=== PATIENT | female | born 1935 | race Caucasian/White ===

== ENCOUNTER 2022-12-08 13:31 | Outpatient (CLI) | payer MEDICARE, SELFPAY ==
--- NOTE | ~2022-12-08 | US_ITS ---
EXAMINATION: US venous doppler LE RT DATE: 12/08/2022 14:12 INDICATION: UNILATERAL PRIMARY OSTEOARTHRITIS . TECHNIQUE: Grayscale images without and with compression and Doppler images of the right lower extrem ity veins were obtained. COMPARISON: None FINDINGS: The right common femoral vein, profunda (deep) femoral vein, femoral vein, popliteal vein, peroneal v ein, posterior tibial veins, gastrocnemius vein, and greater saphenous vein are patent. IMPRESSION: Patent right lower extremity veins. No evidence of deep venous thrombosis. Reviewed, dictated and finalized at location K.
== END 2022-12-08 13:32 | disposition home or self-care (01) ==
DX: M79.661 Pain in right lower leg (principal)
CPT/HCPCS: 93971

== ENCOUNTER 2024-08-14 09:41 | Emergency (ER) | payer MEDICARE, SELFPAY ==
--- NOTE | ~2024-08-14 | XR_ITS ---
HISTORY: Left wrist pain/fall 2 days ago, injury COMPARISON: None TECHNIQUE: 3 views of the left wrist were performed. FINDINGS: No acute fracture is identified. The carpal arcs are intact. Mild radiocarpal joint space narrowing with sclerosis of the distal radius is present. The remaining visualized joint spaces are otherwise preserved. Bone mineralization is age-appropriate. No significant soft tissue swelling is noted. No radiopaque foreign body is identified. IMPRESSION: No acute fracture or dislocation, as detailed above. Reviewed, dictated and finalized at location A.
--- NOTE | ~2024-08-14 | XR_ITS ---
HISTORY: Lt knee pain/fall 2 days ago,replacement 1.5 yrs ago COMPARISON: None TECHNIQUE: 3 views of the left knee were performed FINDINGS: No acute fracture or dislocation. Cortical irregularity along the medial surface of the distal femur, which may represent subacute frac ture with callus formation. Findings consistent with left tibiofemoral joint replacement, with inability to visualize tibial comp onent, possibly removed. Significant vascular calcifications are noted. No suprapatellar joint effusion is identified. The infrapatellar joint space is clear. IMPRESSION: Cortical irregularity along the medial surface of the distal femur which may represent a subacute periprosthetic fracture with callus formation. Reviewed, dictated and finalized at location A.
[2024-08-14 09:54] VITALS: BP 111/59; PULSE 67; RESP 16; TEMP 36.9; O2SAT 100
--- NOTE | 2024-08-14 10:02 | ED_ITS ---
HPI - Fall General Chief Complaint: Extremity Injury, Upper Stated Complaint: L WRIST/L KNEE INJURY Time Seen by Provider: 08/14/24 09:58 Source: patient and family Mode of arrival: ambulatory Limitations: no limitations History of Present Illness HPI Narrative: Star is an 89-year-old female patient presenting to the clinic today with complaints of left wrist and left knee pain. She reports she fell on Monday of this week and injured the left knee and fell yesterday and injured the left wrist. States that she feels as though she cannot always pack upper feet when walking and feels as though she is more shuffling and then falls. Denies hitting her head or any loss of consciousness. Denies any vision changes, dizziness, headache, or stroke-like symptoms prior to falling. Urine has been checked twice per family for UTI and was negative. She denies any urinary symptoms at this time. Family member and patient are here requesting x-rays of left wrist and left knee. Related Data Allergies Allergy/AdvReac Type Severity Reaction Status Date / Time Penicillins Allergy Unknown Unknown Verified 08/14/24 10:08 Review of Systems Review of Systems: Pertinent positives per HPI. Patient denies any fever, chills, rash, headache, visual changes, dizziness, cough, runny nose, sore throat, shortness of breath, chest pain, palpitations, nausea, vomiting, diarrhea, constipation, abdominal pain, or any urinary issues. PMFSH Comments At the time of my signature, I reviewed and agree with the nursing past medical, surgical, social, and family history. There is no relevant family history pertinent to the patient complaint. Exam Narrative: General: Well-developed, well nourished, in no apparent distress Head: Normocephalic, atraumatic. Cardio: Regular rate and rhythm, s1 and s2 normal, no murmur appreciated. Resp: Clear to auscultation bilaterally, no rhonchi, rales, wheezing or rubs. Musculoskeletal: No deformity, bruising with mild swelling noted to the anterior left knee, mild pain with full extension and flexion of the left knee, tender to palpation over the radial wrist with pain with extension and flexion of the wrist as well as ulnar and radial deviation, patient was able to remove her rings from her left hand as there was some mild hand swelling, muscle strength strong and equal, peripheral pulse strong, no cyanosis, walks with a single- point cane Course Course Emergency Course: Portions of this record may have been created with voice recognition software. Level of Care: Express Care Visit Vital Signs Vital signs: Vital Signs Temperature 36.9 C 08/14/24 09:54 Pulse Rate 67 08/14/24 09:54 Respiratory Rate 16 08/14/24 09:54 Blood Pressure 111/59 L 08/14/24 09:54 Pulse Oximetry 100 08/14/24 09:54 Temperature 36.9 C 08/14/24 09:54 Pulse Rate 67 08/14/24 09:54 Respiratory Rate 16 08/14/24 09:54 Blood Pressure 111/59 L 08/14/24 09:54 Pulse Oximetry 100 08/14/24 09:54 Oxygen Delivery Room Air 08/14/24 09:56 Vital signs reviewed MDM - Fall MDM Narrative Medical decision making narrative: At the time of visit patient is resting comfortably on the exam table. Patient appears to be nontoxic. Diagnostics: X-ray of the left wrist and left knee were negative for any acute fractures. Patient possibly has a subacute fracture with callus formation to the distal femur. Plan: I suspect patient has left wrist sprain and left knee contusion with a possibility of subacute fracture of the distal femur. Recommend follow-up with patient's orthopedic provider- Dr. Martin. Also give her information for Dr. Fermin. Geovani wraps were applied. Sensation circulation and motion within normal limits. Supportive measures were discussed with the patient and they voiced understanding discharge instructions and agrees to treatment plan. Return precautions reviewed Differential Diagnosis Differential diagnosis: Likely fracture of wrist and other (Wrist sprain, tibia fracture, femur fracture, patellar fracture, contusion, soft tissue injury) Imaging Data Radiologist's impression: ITS Impressions Wrist X-Ray 08/14/24 10:48 IMPRESSION: No acute fracture or dislocation, as detailed above. Knee X-Ray 08/14/24 10:49 IMPRESSION: Cortical irregularity along the medial surface of the distal femur which may represent a subacute periprosthetic fracture with callus formation. Discharge Plan Discharge Clinical Impression: Fall Qualifiers: Encounter type: initial encounter Qualified Code(s): W19.XXXA - Unspecified fall, initial encounter Contusion of knee, left Qualifiers: Encounter type: initial encounter Qualified Code(s): S80.02XA - Contusion of left knee, initial encounter Left wrist sprain Qualifiers: Encounter type: initial encounter Qualified Code(s): S63.502A - Unspecified sprain of left wrist, initial encounter Patient Disposition: Home Condition: Stable Instructions: Antibiotic Form, Fall Prevention for Older Adults (ED), Contusion in Adults (ED), Wrist Sprain (ED) Additional Instructions: X-rays of the left wrist and left knee are negative for any sign of acute fracture or malalignment. Rest, ice, elevate, and wear geovani wrap as directed Tylenol/motrin for pain as discussed. Follow up with your PCP if symptoms persist more than 1 week. Patient Language: Kinyarwanda Follow-up/Referrals: Ba,Monika [Other] Van Fermin MD [Physician] - (Left wrist sprain and left knee contusion-possible subacute fracture of distal femur with callus formation) Time of Disposition: 10:52 Quality NIHSS Nursing Documentation ED NIHSS nursing documentation: reviewed/agree
--- NOTE | 2024-08-14 11:14 | PC.NURSE ---
+PMS POST MALORIE WRAP APPLICATION TO LEFT WRIST AND LEFT KNEE
== END 2024-08-14 11:05 | disposition home or self-care (01) ==
PROVIDERS: Emergency Provider Nurse Practitioner Family
DX: S80.02XA Contusion of left knee, initial encounter (principal); S63.502A Unspecified sprain of left wrist, initial encounter; W19.XXXA Unspecified fall, initial encounter
CPT/HCPCS: 73110; 73562; 99204; G0463

== ENCOUNTER 2024-08-14 15:29 | Emergency (ER) | payer MEDICARE, SELFPAY ==
--- NOTE | ~2024-08-14 | XR_ITS ---
CHEST RADIOGRAPH CLINICAL HISTORY: weakness/ fall . COMPARISON: None available TECHNIQUE: Single portable view of the chest. FINDINGS The cardiomediastinal silhouette is unremarkable. The lungs are clear. IMPRESSION: No focal infiltrate or effusion. Reviewed, dictated and finalized at location A.
--- NOTE | ~2024-08-14 | CT_ITS ---
EXAMINATION: CT brain wo con DATE: 08/14/2024 16:45 INDICATION: Head injury TECHNIQUE: Computed tomography (CT) of the head was performed without intravenous contrast. Sagittal and coronal reconstructions were performed. The mA was adjusted according to patient size. Iterative reconstruction technique was employed. The dose-length product was 605.33 mGy-cm. COMPARISON: None FINDINGS: No fracture. Small old lacunar infarcts at the bilateral basal ganglia. No acute intracranial hemorrh age, acute infarction or abnormal extra axial fluid collection. There is moderate scattered white mat ter hypoattenuation consistent with chronic small vessel ischemic disease. Symmetric prominence of th e sulci consistent with mild to moderate age-appropriate diffuse cerebral volume loss. Ventricles are normal and symmetric. No mass/mass effect. Changes of bilateral intraocular lens replacement. The o rbits, paranasal sinuses and mastoid air cells are normal. There are multiple small lytic lesions thr oughout the calvarium for which differential would include multiple myeloma. IMPRESSION: 1. No fracture or acute intracranial process. 2. Small old lacunar infarcts at the bilateral basal ganglia. 3. Age-related changes including mild to moderate diffuse volume loss and moderate scattered white ma tter hypoattenuation consistent with chronic small vessel ischemic disease. 4. Several small lucent calvarial lesions for which differential would include multiple myeloma. Hira elate with SPEP/UPEP levels. Reviewed, dictated and finalized at location A. IMPRESSION: 1. No fracture or acute intracranial process. 2. Small old lacunar infarcts at the bilateral basal ganglia. 3. Age-related changes including mild to moderate diffuse volume loss and moder ate scattered white matter hypoattenuation consistent with chronic small vessel ischemic disease. 4. Several small lucent calvarial lesions for which differential would include multiple myeloma. Correlate with SPEP/UPEP levels.
--- NOTE | ~2024-08-14 | CT_ITS ---
CT facial & cervical spine wo Ordering provider: Olegario Olivas MD History: . facial trauma, bruising around right orbit . Comparison: None. Technique: Thin slice axial CT of the facial bones was performed without contrast. Coronal and sagit david reformatted images were also obtained. . Automated exposure control and iterative reconstruction technique were employed. The dose-length product was 167.18 mGy-cm. FINDINGS: PARANASAL SINUSES: Right maxillary sinus disease. Otherwise, a keen Well aerated. BONES: No facial fracture including no nasal bone fracture. ORBITS AND SUPERFICIAL SOFT TISSUES: The optic globes and orbits are normal. Fat stranding and swelli ng seen in the right cheek area suggestive of a hematoma. Otherwise, The superficial soft tissues are normal. Bilateral parapharyngeal and posterior triangular lymphadenopathy. Bilateral carotid calcifications. VISUALIZED MASTOIDS: Well aerated. LIMITED VISUALIZED BRAIN PARENCHYMA: Normal. IMPRESSION: No facial fracture. Hematoma in the right cheek area. CT facial & cervical spine wo Ordering provider: Olegario Olivas MD History: . facial trauma, bruising around right orbit . Comparison: None. Technique: CT of the cervical spine was performed without contrast. Sagittal and coronal reformatted images were also obtained and reviewed. Automated exposure control and iterative reconstruction jennifer hnique were employed. The dose-length product was 167.18 mGy-cm. FINDINGS: VERTEBRAE: No subluxation or acute fracture. The occipital condyles are intact. DISC SPACES: Narrowing of the disc C4-C5, C5-C6 and C6-C7. Multilevel facet joint disease. Multilevel uncovertebral joint osteoarthritic changes. Narrowing of the left intervertebral foramen at the leve l of C5-C6 PARASPINOUS SOFT TISSUES: Bilateral parapharyngeal and posterior triangle lymphadenopathy. Clinical c orrelation advised. Bilateral carotid calcifications. IMPRESSION: No acute osseous abnormality cervical spine. Multilevel degenerative disc disease. Reviewed, dictated and finalized at location A. IMPRESSION: No facial fracture. Hematoma in the right cheek area. CT facial & cervical spine wo Ordering provider: Olegario Olivas MD History: . facial trauma, bruising around right orbit . Comparison: None. Technique: CT of the cervical spine was performed without contrast. Sagittal a nd coronal reformatted images were also obtained and reviewed. Automated expos ure control and iterative reconstruction technique were employed. The dose-ne th product was 167.18 mGy-cm. FINDINGS: VERTEBRAE: No subluxation or acute fracture. The occipital condyles are intact. DISC SPACES: Narrowing of the disc C4-C5, C5-C6 and C6-C7. Multilevel facet lianna nt disease. Multilevel uncovertebral joint osteoarthritic changes. Narrowing of the left intervertebral foramen at the level of C5-C6 PARASPINOUS SOFT TISSUES: Bilateral parapharyngeal and posterior triangle lymph adenopathy. Clinical correlation advised. Bilateral carotid calcifications.
[2024-08-14 15:48] VITALS: BP 127/63; PULSE 65; RESP 16; TEMP 36.7; O2SAT 97
--- NOTE | 2024-08-14 16:20 | PC.NURSE ---
Pt. daughter approached nurses station, asking ADRIANE Barkley about when the pt. would receive her CT scan. This RN entered the conversation as the primary nurse. ER process explained to daughter, that an order for the CT scan has to be put in by a provider and a provider has not signed up for the patient yet. Daughter very upset by this, and began yelling at CRNs, Dr. Gan and this RN, upset about the wait time. Pt. is hemodynamically stable. Daughter reluctantly cooperative in walking back to pt. room. Dr. Olivas to bedside.
[2024-08-14 16:26] VITALS: BP 121/60; PULSE 63; RESP 14; O2SAT 96
--- NOTE | 2024-08-14 16:30 | ECG_ITS ---
Test Date: 2024-08-14 17:21:47 Measurements Intervals [place] Rate: 60 P: 56 [place]: 212 QRS: -43 QRSD: 159 T: 67 QT: 475 QTc: 478 Interpretive Statements SINUS RHYTHM WITH FIRST DEGREE AV BLOCK LEFT AXIS DEVIATION LEFT BUNDLE BRANCH BLOCK BASELINE ARTIFACT- I, II, AVR ABNORMAL ECG No previous ECG available for comparison Electronically Signed On 08-14-2024 19:51:38 CDT by Dioni Silveira D.O.
--- OUTSIDE RECORDS SUMMARY | 2024-08-14 16:38 | XMS_ITS | Clinical Summary ---
Author Organization [facility] Address [address] [facility] [place] [address] Phone Care Team Providers Care Creative Arts Therapist Name Role Phone Monika Cosme MD Primary Care Provider [phone] Allergies Active Allergy Reactions Criticality Noted Date Comments Clindamycin Rash Low 05/26/2014 Erythromycin Rash Low 05/26/2014 Penicillins Rash Low 05/26/2014 Medications amLODIPine (NORVASC) 10 mg tablet Take 10 mg by mouth daily. Active calcium carbonate (CALTRATE) 600 mg (1,500 mg) Tablet Take by mouth 3 times daily with meals. Active meloxicam (MOBIC) 15 mg tablet Take 15 mg by mouth daily. 02/18/2020 Active lisinopril-hydr oCHLOROthiazide (ZESTORETIC) 20-12.5 mg tablet TK 1 AND 1/2 TS PO D 02/21/2020 Active latanoprost (XALATAN) 0.005 % solution INSTILL 1 DROP INTO AFFECTED EYE QPM 02/18/2020 Active ergocalciferol, vitamin D2, (VITAMIN D ORAL) Take by mouth daily. Active HYDROcodone-ellis taminophen (NORCO) 5-325 mg tabletIndicatio ns:UPJ obstruction, acquired Take 1 Tablet by mouth every 8 hours as needed for severe Pain. Max Daily Amount: 3 Tablets 20 Tablet 2020 1:56 PM CDT 2020 Active vibegron (Gemtesa) 75 mg Tablet Take 75 mg by mouth daily. 30 Tablet 5 01/31/2022 Active mirabegron (Myrbetriq) 50 mg Extended Release 24 hour tablet Take 1 Tablet (50 mg) by mouth daily. 30 Tablet 5 02/02/2022 Active Active Problems Problem Noted Date Diagnosed Date Frequency of micturition 03/01/2016 Urgency incontinence 03/01/2016 Overactive bladder 05/26/2014 Encounters Date Type Department Care Team Description 05/28/2024 External Device Data ST[facility] ABSTRACTION Provider, Abstract 05/22/2024 External Device Data [facility] ABSTRACTION Provider, Abstract 05/22/2024 External Device Data [facility] ABSTRACTION Provider, Abstract from Last 3 Months Immunizations Immunization Administration Dates Next Due Influenza Seasonal Unspecified Formulation IM Family History Medical History Relation Name Comments Hypertension Brother Heart Disease Father Hypertension Father Heart Disease Mother Hypertension Mother Relation Name Status Comments Brother Father Mother Social History Tobacco Use Types Packs/Day Years Used Date Smoking Tobacco: Former Cigarettes 0.5 55 0 05/26/1957 - 05/26/2012 Smokeless Tobacco: Never Tobacco Cessation:Counseling Given: Yes Alcohol Use Standard Drinks/Week Comments Yes 0 (1 standard drink = 0.6 oz pur e alcohol) Comments No Sex and Gender Information Value Date Recorded Sex Assigned at Not on file 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 Gender Identity Not on file Sexual Orientation Not on file Last Filed Vital Signs Vital Sign Reading Time Taken Comments Blood Pressure 142/77 2020 2:31 PM CDT Pulse 81 2020 2:31 PM CDT Temperature 36.2 C (97.2 F) 2020 2:31 PM CDT Respiratory Rate 18 01/25/2022 10:52 AM CDT Oxygen Saturation 96% 2020 2:31 PM CDT Inhaled Oxygen Concentration - - Weight 68 kg (150 lb) 01/25/2022 10:52 AM CDT Height 157.5 cm (5' 2 ) 01/25/2022 10:52 AM CDT Body Mass Index 27.44 01/25/2022 10:52 AM CDT Plan of Treatment Health Maintenance Due Date Last Done Comments DTAP/TDAP/TD VACCINES (1 - Tdap) 07[birth year]23/1954 PNEUMOCOCCAL VACCINE 50+ YEA RS (1 of 1 - PCV) 1986 ZOSTER VACCINE (1 of 2) 1986 RSV VACCINE (60+ or ) (1 - 1-dose 75+ series) 07/23/2011 INFLUENZA VACCINE (#1) 2023 01/30/2020 OSTEOPOROSIS SCREENING Completed , 12/24/2014, 11/23/2012 Medical Devices Implanted Type Area Telephone Clerk Device Identifier Shelf Expiration Date Model / Serial / Lot Stent Polaris Ultra [id number] - [id number] Implanted:Qty: 1 on 2020 by Libia Coronel MD at [facility] Stent Left: Ureter [employer] [id number] 04/14/2023 [id number] / / [id number] In Process Of Getting Dental Implants Mouth Insurance RX OPT[employer] RX Member Subscriber Plan / Payer (Ef fective 2020-Present) Name:Star Torres Relation to Subscriber:Self Name:Star Torres Subscriber ID:Not on file Payer ID:Not on file Group ID:[id number] Type:RX Medicare Part D Address: [place] [place] Advance Directives For more information, please contact: [phone] * Full Code (Latest Code Status on File) Date Activated Date Inactivated Comments 2020 8:52 AM 2020 4:44 PM Care Teams Creative Arts Therapist Relationship Specialty Start Date End Date Monika Cosme MD [address] [place] [address] PCP - General Internal Medicine 06/10/20
--- OUTSIDE RECORDS SUMMARY | 2024-08-14 16:38 | XMS_ITS | Encounter Summary ---
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
--- OUTSIDE RECORDS SUMMARY | 2024-08-14 16:38 | XMS_ITS | Clinical Summary ---
Author Organization [facility] Address [address] [place] [address] Care Team Providers Care Revenue Liaison Name Role Phone Monika Cosme MD Primary Care Provider [phone] Source Comments [facility],non-owned Affiliates and Associated Physician Practices is amultiple site organization consisting of ambulatory clinics and hospital sitesin [place], [place], [place] and [place]. This disclosure is being madepursuant to the Care Everywhere program and may not contain all information available regarding this patient. Last updated 18.[facility] Allergies Active Allergy Reactions Criticality Noted Date Comments Clindamycin Diarrhea 12/28/2020 Erythromycin Diarrhea 12/28/2020 Lisinopril Rash Medium 12/28/2020 Penicillin G Other High 10/28/2022 Medications * Be aware that medications may not be up to date on this document. Alwaysverify current medications with the patient. meloxicam (MOBIC) 15 MG tablet Take 1 (one) tablet by mouth once daily Active latanoprost (XALATAN) 0.005 % ophthalmic solution 1 (one) drop at bedtime 0.005-2.5ml Active lisinopril-hydr oCHLOROthiazide (Prinzide; Zestoretic) 20-12.5 MG tablet Take 1.5 (one and one-half) tablets by mouth once daily 2 Active dorzolamide-irineo olol (Cosopt) 22.3-6.8 MG/ML ophthalmic solution Instill 1 (one) drop into both eyes 2 times daily 2 Active Myrbetriq 50 MG tablet Take 1 (one) tablet by mouth once daily 2 Active neomycin-polymy staci-dexameth (Maxitrol) ophthalmic suspension Instill 1 (one) drop into both eyes once daily 3 Active Rocklatan 0.02-0.005 % ophthalmic solution Instill 1 (one) drop into both eyes at bedtime 3 Active azelastine (Optivar) 0.05 % ophthalmic solution Instill 1 (one) drop into both eyes every morning 3 Active hyoscyamine (Levsin) 0.125 MG IR tablet Take 2 (two) tablets by mouth every 4 hours as needed 3 Active multivitamins (One A Day) capsule Take 1 (one) capsule by mouth once daily Active hydrocortisone (Hytone) 2.5 % ointment APPLY TO EYELIDS TWICE DAILY FOR 1 WEEK 3 Active esomeprazole (NexIUM) 40 MG capsule esomeprazole magnesium 40 mg capsule,delayed release(DR/EC) Active calcium carbonate (Caltrate) 600 MG tablet Active amLODIPine (Norvasc) 10 MG tablet 1 tablet Oral Once a day for 90 days 3 Active acetaminophen (Tylenol) 500 MG tablet Take 2 (two) tablets by mouth every 6 hours as needed Active salicylic acid (Neutrogena T/Daren) 3 % shampoo use as directed topically 2-3 times a week as needed External 3 Active ergocalciferol (Drisdol) 200 MCG (8000 UNITS)/ML drops Take by mouth once daily Active Multiple Vitamins-Minera ls (MULTIVITAMIN ADULT EXTRA C PO) 0 Active Polyethylene Glycol 3350 (MIRALAX PO) 90 packet 4 Active metoprolol succinate XL 24hr (Toprol XL) 25 MG tablet 1 (one) tablet 4 Active Probiotic Product (Align) 4 MG 0 Capsule Active losartan-hydroC HLOROthiazide (Hyzaar) 100-25 MG tablet TAKE 1 TABLET BY MOUTH ONCE A DAY (STOP LISINOPRIL HCTZ) Active metoprolol succinate XL 24hr (Toprol XL) 25 MG tablet 1 (one) tablet once daily 4 Active nystatin/triamc inolone (Mycolog) 424778-7.1 UNIT/GM-% ointmentIndicat ions:Erosive lichen planus of vulva APPLY TOPICALLY EXTERNAL VAGINAL OPENING EVERY NIGHT AT BEDTIME 60 g 2 Active Active Problems Problem Noted Date Diagnosed Date 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, bilateral, indeterm inate stage 03/18/2024 Left bundle branch block 10/28/2022 023 Osteoarthritis of knee 10/28/2022 Diverticulosis 10/26/2022 02/20/2023 DVT (deep venous thrombosis) 10/26/2022 Hx of breast cancer 10/26/2022 02/20/2023 Hypertension 10/26/2022 02/20/2023 Resolved Problems Problem Noted Date Diagnosed Date Resolved Date Lichen planus 04/19/2021 03/18/2024 Family History Medical History Relation Name Comments Cancer - Prostate Brother 1 Cancer - Prostate Brother 2 Cancer - Prostate Father CAD (Coronary Artery Disease) Mother Relation Name Status Comments Brother 1 Brother 2 Father Mother Social History Tobacco Use Types Packs/Day Years Used Date Smoking Tobacco: Former Cigarettes Q uit: 2013 Smokeless Tobacco: Never Tobacco Cessation:Counseling Given: Not Answered Alcohol Use Standard Drinks/Week Comments Yes 4 (1 standard drink = 0.6 oz pur e alcohol) 4 drinks weekly Comments No Sex and Gender Information Value Date Recorded Sex Assigned at Not on file Legal Sex Female 6:15 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 ASSISTANT Gender Identity Not on file Sexual Orientation Not on file Last Filed Vital Signs Vital Sign Reading Time Taken Comments Blood Pressure 130/74 03/18/2024 10:13 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 ASSISTANT Pulse - - Temperature - - Respiratory Rate - - Oxygen Saturation - - Inhaled Oxygen Concentration - - Weight 65.1 kg (143 lb 9.6 oz) 03/18/2024 10:13 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 ASSISTANT Height 160 cm (5' 3 ) 03/18/2024 10:13 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 ASSISTANT Body Mass Index 25.44 03/18/2024 10:13 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 ASSISTANT Plan of Treatment Upcoming Encounters Date Type Department Care Team (Late st Contact Info) Description 03/18/2025 10:50 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 ASSISTANT Office Visit [facility] - NUT ROASTER [address] [place] [address] Bernarda Hyde MD [address] [email or web address] [address] [place] [address] Health Maintenance Due Date Last Done Comments DTAP/TDAP/TD VACCINES (1 - Tdap) 07/23/1954 PNEUMOCOCCAL VACCINE 50+ (1 of 1 - PCV) 1986 ZOSTER VACCINE (1 of 2) 1986 Respiratory Syncytial Virus (RSV) Vaccine Pt: or over 60 yrs (1 - 1-dose 75+ series) 07/23/2011 COVID-19 VACCINE (1 - 2023-2 5 season) 2023 DEPRESSION SCREENING 05/01/2024 MEDICARE AWV CALENDAR YEAR 2024 INFLUENZA VACCINE (Season Ended) 2024 01/30/2020 BONE DENSITY TESTING Completed 12/27/2016, 12/24/2014, 11/23/2012 HEPATITIS B VACCINE Aged Out No longe r eligible based on patient's age to complete this topic HIB VACCINE Aged Out No longer eligi ble based on patient's age to complete this topic HPV VACCINE Aged Out No longer eligi ble based on patient's age to complete this topic MENINGOCOCCAL (Group B) VACCINE SHARED DECISION-MAKING Aged Out No longer eligible based on patient's age to complete this topic MENINGOCOCCAL GROUPS A/C/Y/W VACCINE Aged Out No longer eligible b ased on patient's age to complete this topic Insurance AETNA MEDICARE ADV [facility] AETNA MEDICARE ADV Care Teams Revenue Liaison Relationship Specialty Start Date End Date Monika Cosme MD [address] [facility] [address] [place] [id number] PCP - General 12/28/20
--- OUTSIDE RECORDS SUMMARY | 2024-08-14 16:38 | XMS_ITS | Clinical Summary ---
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 Gender Identity Not on file Sexual Orientation Not on file Plan of Treatment Health Maintenance Due Date Last Done Comments DTaP, Tdap and Td Vaccines ( 1 - Tdap) 07/23/1954 Zoster Vaccines (1 of 2) 1986 Pneumococcal Vaccine: 50+ Ye ars (1 of 1 - PCV) 2001 RSV Immunization or 60+ Years (1 - 1-dose 75+ series) 07/23/2011 COVID-19 Vaccine ( - 2023-2 5 season) 2023 Meningococcal B Vaccine Aged Out No l onger eligible based on patient's age to complete this topic Meningococcal Vaccine Aged Out No albertina jj eligible based on patient's age to complete this topic RSV Immunizations Under 20 Months Aged Out No longer eligible based on patient's age to complete this topic
--- OUTSIDE RECORDS SUMMARY | 2024-08-14 16:38 | XMS_ITS | Encounter Summary ---
Author Organization [facility] Address [address] [place] [address] Care Team Providers Care Lobster Man Name Role Phone Monika Cosme MD Primary Care Provider [phone] Reason for Visit * Reason Onset Date Comments Fall 02/20/2023 PROBLEM 02/20/2023 Encounter Details Date Type Department Care Team (Late st Contact Info) Description 02/20/2023 Telephone [facility] - ENVIRONMENTAL SCIENCE PROGRAM DIRECTOR [address] [place] [address] Sher Otero MD [address] [facility] [place] [address] Fall; PROBLEM Social History Tobacco Use Types Packs/Day Years Used Date Smoking Tobacco: Former Cigarettes Q uit: 2013 Smokeless Tobacco: Never Alcohol Use Standard Drinks/Week Comments Yes 4 (1 standard drink = 0.6 oz pur e alcohol) 4 drinks weekly Comments No Sex and Gender Information Value Date Recorded Sex Assigned at Not on file Legal Sex Female 6:15 AM TALENT CONSULTANT Gender Identity Not on file Sexual Orientation Not on file documented as of this encounter Miscellaneous Notes * Telephone Encounter - Елена Carrasco - 02/20/2023 3:08 PM CDT Pt called and said she experinced a fall. Says she feels slight movement. Wants to know how to proceed. Pt is 22 wks. documented in this encounter Plan of Treatment Upcoming Encounters Date Type Department Care Team (Late st Contact Info) Description 03/18/2025 10:50 AM TALENT CONSULTANT Office Visit [facility] - ENVIRONMENTAL SCIENCE PROGRAM DIRECTOR [address] [facility] [address] [place] [address] Bernarda Hyde MD [address] [facility] [address] [place] [address] documented as of this encounter Visit Diagnoses Not on filedocumented in this encounter Care Teams Lobster Man Relationship Specialty Start Date End Date Monika Cosme MD [address] [facility] [address] [place] [address] PCP - General 12/28/20 documented as of this encounter
--- OUTSIDE RECORDS SUMMARY | 2024-08-14 16:38 | XMS_ITS | Encounter Summary ---
Author Organization [facility] Health Address [address] [facility] [place] [address] Care Team Providers Care Lap Winding Machine Operator Name Role Phone Monika Cosme MD Primary Care Provider [phone] Encounter Details Date Type Department Care Team (Late Contact Info) Description 09/27/2023 Lab Requisition [facility] - DermPath Lab [address] [place] [address] Lisa Howell MD [address] [place] [address] Social History Tobacco Use Types Packs/Day Years Used Date Smoking Tobacco: Former Cigarettes Q uit: 2013 Smokeless Tobacco: Never Alcohol Use Standard Drinks/Week Comments Yes 4 (1 standard drink = 0.6 oz pur e alcohol) 4 drinks weekly Comments No Sex and Gender Information Value Date Recorded Sex Assigned at Not on file Legal Sex Female 6:15 AM 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 Gender Identity Not on file Sexual Orientation Not on file documented as of this encounter Plan of Treatment Upcoming Encounters Date Type Department Care Team (Late Contact Info) Description 03/18/2025 10:50 AM BILINGUAL 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 CASEWORKER Office Visit [facility] - ASTROBIOLOGIST [address] [place] [address] Bernarda Hyde MD [address] [place] [address] documented as of this encounter Procedures Procedure Name Priority Date/Time Associated Diagnosis Comments DERMATOPATHOLOGY Routine 09/27/2023 3:33 AM CDT documented in this encounter Results * DERMATOPATHOLOGY (09/27/2023 3:33 AM CDT) Case Report Dermatopathology Report Case: [id number] Authorizing Provider: Lisa Howell MD Collected: 09/27/2023 03:33 AM Ordering Location: [facility] - Received: 09/28/2023 10:55 AM DermPath Lab Pathologist: Amber Antonio MD Specimen: Skin, anterior neck 1:51 PM CDT DERMATOPATHOLOGY LABORATORY Final Diagnosis Specimen A. SKIN, anterior neck: EPIDERMOID CYST (L72.0) 1:51 PM CDT DERMATOPATHOLOGY LABORATORY Clinical History R/O cyst 1:51 PM CDT DERMATOPATHOLOGY LABORATORY Gross Description Specimen A: Received is one formalin filled container labeled with the patient's name and designated anterior neck. The specimen consists of a 10x7x2 mm piece of skin. The specimen is serially sectioned and a outside sales representative insurance section is submitted in cassette 1. Jar 1. 1:51 PM CDT DERMATOPATHOLOGY LABORATORY Microscopic Description Specimen A. SKIN, anterior neck: Within the dermis, there is a space lined by epithelium that resembles normal epidermis and the infundibular portion of the hair follicle. 1:51 PM CDT DERMATOPATHOLOGY LABORATORY Disclaimer An external and internal positive and negative controls are appropriate for the histochemical, immunohistochemical and immunofluorescence stain(s) in this case (if any), except where stated explicitly. The performance characteristics of the stain(s) cited in this report were developed and its performance characteristic determined by the Dermatopathology Laboratory at [facility], directed by Dr. Rae Antonio. These tests need not be, and therefore are not, approved by the [place] Food and Drug Administration. The tests are used for clinical purposes. Billing Codes Specimen Charges Stain Charges 95743 1 1:51 PM CDT DERMATOPATHOLOGY LABORATORY Embedded Images 05/31/202 4 1:51 PM CDT DERMATOPATHOLOGY LABORATORY Pathology/Cytolo gy TISSUE SPECIMEN FROM SKIN / Unknown 09/27/2023 3:33 AM CDT 09/28/2023 10:55 AM CDT us Lisa Howell MD LAB - PATHOLOGY/CYTOLOGY [facility] EDUARDO Final Result DERMATOPATHOLOGY LABORATORY [facility] - Department of Dermatology [facility] [address] [place] [address], [address] [phone] documented in this encounter Visit Diagnoses Not on filedocumented in this encounter Care Teams Lap Winding Machine Operator Relationship Specialty Start Date End Date Monika Cosme MD [address] [facility] [address] [place] [address] PCP - General 12/28/20 documented as of this encounter
--- OUTSIDE RECORDS SUMMARY | 2024-08-14 16:38 | XMS_ITS | Patient Health Record ---
Author Organization [facility] OF [facility] Address [address] [facility] [address] [place] [address] Care Team Providers Care Interpreter Name Role Phone Monika Cosme Primary Care Provider Marquita Rmaos Unavailable [phone] Allergies Allergen (clinical drug ingredient) Drug/Non Drug Allergy documented on EMR Reaction Allergy Type Onset Date Status clindamycin Clindamycin Unknown Drug Allergy Act ai erythromycin Erythromycin Unknown Drug Allergy A ctive Penicillin Unknown Drug Allergy Active Reason For Referral No Information Medications Medication SIG (Take, Route, Frequency, Duration) Notes Start Date End Date Status Clopidogrel Bisulfate 75 MG Oral for 90 Days Active Metoprolol Succinate ER 25 MG Oral for 90 Days Active Atorvastatin Calcium 40 MG TAKE 1 TABLET BY MOUTH EVERY NIGHT Oral for 90 Days Active Aspirin Low Dose 81 MG TAKE 1 TABLET BY MOUTH EVERY DAY Oral for 30 Days Active amLODIPine Besylate 10 MG Oral for 90 Days Active Rocklatan 0.02-0.005 % INSTILL 1 DROP IN TO EACH EYE EVERY NIGHT AT BEDTIME Ophthalmic for 57 Days Active PreserVision AREDS 2 Active Tylenol Active Multivitamin Active Losartan Potassium A ctive Social History Tobacco Use: Social History Observation Description Date Details (start date - stop date) Former Smoker NA - NA Tobacco Control (Standard) Question Answer Notes Tobacco use: Former smoker How long has it been since you last smoked? 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 Problem 694578072 Other acquired deformities of left foot (M21.6X2) Active confirmed Problem 82831513 Atherosclerosis, generalized (I70.91) Active confirmed Vital Signs Height 62 in 08/08/2024 Weight 140 lbs 08/08/2024 BMI 25.6 kg/m2 08/08/2024 Encounters Encounter Location Date Provider Diagnosis [address] [facility] [address] [employer] [address] [place] [phone] 08/08/2024 Amrquita Leyva Callus of foot L84 ; Atherosclerosis, generalized 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 [address] [place] [address] [employer] [address] [place] [phone] 08/17/2023 Marquita Leyva Atherosclerosis, generalized I70.91 ; Ingrown toenail L60.0 ; Pain around toenail, right foot M79.674 and Pain around toenail, left foot M79.675 [address] [facility] [address] [address] 10/03/2023 Marquita Leyva Callus of foot L84 ; Atherosclerosis, generalized 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 [address] [place] [place] [address] [employer] [address] [place] [phone] 12/13/2023 Marquita Leyva Callus of foot L84 ; Atherosclerosis, generalized I70.91 ; Onychogryphosis L60.2 ; Other acquired deformities of right foot M21.6X1 and Other acquired deformities of left foot M21.6X2 [address] [facility] [place] [facility] [address] [employer] [address] [place] [phone] 02/21/2024 Marquita Leyva Callus of foot L84 ; Atherosclerosis, generalized 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 1 OF [facility] [address] [employer] [address] [place] [phone] 05/09/2024 Marquita Leyva Callus of foot L84 ; Atherosclerosis, generalized 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 Assessments Encounter Date Diagnosis (ICD Code) Assessment Notes Treatment Notes Treatment Clinical Notes Section Notes 08/17/2023 Ingrown toenail (ICD-10 - L60.0) Evaluation today included a review of medical history, review of systems, discussion of exam findings, and review of diagnoses and treatment options. Discussed ingrown toenail condition and explained in detail conservative and surgical options of care including debridement / slant back procedure vs nail avulsion vs matrixectomy. Discussed pros and cons of each procedure including temporary relief vs more permanent relief with matrixectomy procedure but longer healing time. Patient requested only debridement / slant back procedure today w/o local anesthesia. She can continue applying antibiotic ointment and a Band-Aid on the toes for the next few days. 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 08/17/2023 Pain around toenail, right foot (ICD-10 - M79.674) 08/17/2023 Pain around toenail, left foot (ICD-10 - M79.675) 12/13/2023 Other acquired deformities of right foot (ICD-10 - M21.6X1) Evaluation today included a review of medical history, review of systems, discussion of exam findings, and review of diagnoses and treatment options. I explained to the patient that she develops calluses due to the pronation range of motion of her feet. I discussed the importance of wearing good supportive shoes. Discussed benefits of orthotics which I advised can potentially improve alignment and stability of the lower extremity as well as improve shock absorption of the foot and ankle which may help alleviate symptoms associated with this condition. 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 12/13/2023 Other acquired deformities of left foot (ICD-10 - M21.6X2) Plan Of Treatment Next Appt Details Provider Name:Marquita Leyva, 10/17/2024 10:00:00 AM, [address] [place], [address], Insurance Providers Payer Name Payer Address Payer Phone Subscriber Number Group Number Insured Name Patient Relationship to Insured Coverage Start Date Coverage End Date [employer] [address] [place] [address] [id number] [employer] Self - patient is the insured Medical (General) History Medical History History ICD Code LT breast cancer, GERD/Reflu x, High cholesterol, High blood pressure, Cardiac blockage Surgical History Surgery Date(Month/Year) LT bunionectomy 1998 Cardiac stent placed due to blockage LT knee replacement 10/2022 cyst removal 08/2023
--- OUTSIDE RECORDS SUMMARY | 2024-08-14 16:39 | XMS_ITS ---
Author Organization 1 OF [facility] Address [address] [place] [address] Care Team Providers Care Clay Mixer Name Role Phone Monika Cosme Primary Care Provider Marquita Ramos Unavailable [phone] Allergies Allergen (clinical drug ingredient) Drug/Non Drug Allergy documented on EMR Reaction Allergy Type Onset Date Status clindamycin Clindamycin Unknown Drug Allergy Act ai erythromycin Erythromycin Unknown Drug Allergy A ctive Penicillin Unknown Drug Allergy Active REASON FOR VISIT High Risk Foot care Medications Medication SIG (Take, Route, Frequency, Duration) Notes Start Date End Date Status Aspirin Low Dose 81 MG TAKE 1 TABLET BY MOUTH EVERY DAY Oral for 30 Days Active amLODIPine Besylate 10 MG Oral for 90 Days Active Rocklatan 0.02-0.005 % INSTILL 1 DROP IN TO EACH EYE EVERY NIGHT AT BEDTIME Ophthalmic for 57 Days Active PreserVision AREDS 2 Active Tylenol Active Clopidogrel Bisulfate 75 MG Oral for 90 Days Active Metoprolol Succinate ER 25 MG Oral for 90 Days Active Atorvastatin Calcium 40 MG TAKE 1 TABLET BY MOUTH EVERY NIGHT Oral for 90 Days Active Multivitamin Active Losartan Potassium A ctive Vital Signs Height 62 in 08/08/2024 Weight 140 lbs 08/08/2024 BMI 25.6 kg/m2 08/08/2024 Encounters Encounter Location Date Provider Diagnosis [address] [facility] [employer] [facility] [address] [place] [address] 08/08/2024 Marquita Leyva Callus of foot L84 ; Atherosclerosis, generalized 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 Assessments Encounter Date Diagnosis (ICD Code) Assessment Notes Treatment Notes Treatment Clinical Notes Section Notes 08/08/2024 Callus of foot (ICD-10 - L84) 08/08/2024 Atherosclerosis, generalized (ICD-10 - I70.91) 08/08/2024 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 Plan Of Treatment Treatment Notes Assessment Notes Onychogryphosis Considering the asso ciated comorbidities and physical exam findings today, this patient is at substantial risk of developing serious foot complications in the absence of regular and professional palliative foot care. Next Appt Details Follow Up: 3 Months,carlynnPaola son: Provider Name:Marquita [place], 10/17/2024 10:00:00 AM, [address], [place], [address], Procedure Notes * Category Sub-Category Detail Notes PALLIATIVE FOOT CARE: Callus paring: (27930) Le ss than five calluses as noted above reduced with a sterile scalpel blade Nail debride (54155): Debridement of at least six mycotic and/or hypertrophic nails performed:, utilizing manual and electric debridement the affected nails were reduced the nails in length and thickness with curettage of debris from nail margins performed as needed. Nail thickness reduced by:, 10% Progress Notes * Star TORRES CDOB: [birth year] (89 yo F)Acc No.[id number]:08/08/2024 Progress Note Patient: Carroll LUZ MARIAStar [place] Provider: Simone Leyva DPM :1935 A ge:89 Y S ex:Female Date:08/08/2024 Address:[address] [place], [place] [id number] Pcp:Monika Cosme Subjective: * Chief Complaints: * 1 . High Risk Foot care. * HPI: Amber Garrett assisting with visit:: Chart Prep I tiffany. HPI/Rooming: Diomedes alan reason for visit:: At Risk Foot Care: [age] y/o female RTO for at risk foot care. Reports no acute issues with nails or calluses today.. * Medical History: L T breast cancer, GERD/Reflux, High cholesterol, High blood pressure, Cardiac blockage. * Surgical History: L T bunionectomy 1998, Cardiac stent placed due to blockage 05/17/2023, LT knee replacement 10/2022, cyst removal 08/2023. * Family History: Parkinson's disease. * Medications: T aking Losartan Potassium , Taking Multivitamin , Taking Tylenol , Taking PreserVision AREDS 2 , Taking Rocklatan 0.02-0.005 % Solution INSTILL 1 DROP INTO EACH EYE EVERY NIGHT AT BEDTIME Ophthalmic , Taking amLODIPine Besylate 10 MG Tablet Oral , Taking Aspirin Low Dose 81 MG Tablet Delayed Release TAKE 1 TABLET BY MOUTH EVERY DAY Oral , Taking Atorvastatin Calcium 40 MG Tablet TAKE 1 TABLET BY MOUTH EVERY NIGHT Oral , Taking Metoprolol Succinate ER 25 MG Tablet Extended Release 24 Hour Oral , Taking Clopidogrel Bisulfate 75 MG Tablet Oral , Medication List reviewed and reconciled with the patient * Allergies: P enicillin, Erythromycin, Clindamycin. Objective: * Vitals: W t:140lbs, Wt-k.5 kg, Ht:62in, BMI:25.6Index. * Examination: G eneral Examination: Constitutional / Appearance: N o acute distress , Well nourished, Appropriate personal hygiene. Mental status: C ooperative, Oriented to person, place and time, Mood and affect: normal, Judgement and intellect: normal with appropriate response to questions. Shoes today: s lip on shoes. L ower Extremity VASCULAR: : Pulses: D P pulse a bsent b ilateral; PT pulse absent bilateral. Temperature gradient: decreased from proximal to distal, bilateral. Pedal hair: a bsent, bilateral. Venous insufficiency edema: m ild pitting edema, bilateral lower legs and ankles. Capillary refill at distal toes l ess than 5 seconds, bilateral. L ower Extremity DERM: : Skin: d ry, thin, no open sores, no suspicious lesions, without interdigital maceration, bilateral. Nails: N ail plates of: T A-T9 are elongated, thickened, dystrophic, discolored, incurvated with subungual debris.. Hyperkeratotic lesions LEFT foot: m edial hallux IPJ, plantar medial 1st MPJ. Hyperkeratotic lesions RIGHT foot: m edial hallux IPJ, plantar medial 1st MPJ. L ower Extremity MSK: : Gait s low gait. Left lower extremity inspection and palpation: N o palpable masses or nodules noted.. Right lower extremity inspection and palpation: N o palpable masses or nodules noted. . Foot deformities: B ilateral:,hammertoes. L ower Extremity NEURO: : General sensation appears intact, bilateral. Muscle tone d iminished, b ilateral. ? Assessment: * Assessment: 1. 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 A therosclerosis, generalized - I70.91 (Primary) 3 . O nychogryphosis - L60.2 Plan: * Treatment: * Procedures: P ALLIATIVE FOOT CARE:: Callus paring: ( 67027) Less than five calluses as noted above reduced with a sterile scalpel blade. Nail debride (53143): D ebridement of at least six mycotic and/or hypertrophic nails performed:, utilizing manual and electric debridement the affected nails were reduced the nails in length and thickness with curettage of debris from nail margins performed as needed. Nail thickness reduced by:, 10%. * Procedure Codes: 1 1056 TRIM SKIN LESIONS, 2 TO 4, Modifiers: Q8 , 04976 DEBRIDE NAIL, 6 OR MORE, Modifiers: Q8 , 59 * Preventive Medicine: Counseling: C are goal follow-up plan: BMI counseling provided to patient:?Lifestyle education Screenings: F ALL RISK SCREENING Fall Risk Assessment: N o falls in the past year * Follow Up: 3 Months,prn * Images: * Electronic signature of Emily Leyva DPM on 08/14/2024 at 04:39 PM CDT Sign off status: Pending * Provider: Simone Leyva DPM Date: 08/08/2024 Generated for Blanca adkins/Adriana/Tin on: 0 08/14/2024 04:39 PM CDT History and Physical Notes * HPI (History of Present Illness) Category Sub-Category Detail Notes Category Not es Primary reason for visit: At Risk Foot Care: 89 y/o female RTO for at risk foot care. Reports no acute issues with nails or calluses today. MA assisting with visit: HPI/Rooming: Matt Chart Prep Irshan Examination Category Sub-Category Detail Notes Category Not es General Examination Mental status: Cooperative, Oriented to person, place and time, Mood and affect: normal, Judgement and intellect: normal with appropriate response to questions Shoes today: slip on shoes Constitutional / Appearance: No acute di stress , Well nourished, Appropriate personal hygiene Lower Extremity VASCULAR: Venous insufficiency e praveena: mild pitting edema, bilateral lower legs and ankles Pulses: DP pulse absent bila teral; PT pulse absent bilateral Temperature gradient: decreased from pro ximal to distal, bilateral Pedal hair: absent, bilateral Capillary refill at distal toes less usman n 5 seconds, bilateral Lower Extremity NEURO: General sensation appears intac t, bilateral Muscle tone diminished, bilatera l Lower Extremity MSK: Foot deformities: Bilateral:,jerry ertoes Left lower extremity inspection and palp ation: No palpable masses or nodules noted. Right lower extremity inspection and pal pation: No palpable masses or nodules noted. Gait slow gait Lower Extremity DERM: Skin: dry, thin, no open sores, no suspicious lesions, without interdigital maceration, bilateral Nails: Nail plates of: TA-T 9 are elongated, thickened, dystrophic, discolored, incurvated with subungual debris. Hyperkeratotic lesions LEFT foot: medial hallux IPJ, plantar medial 1st MPJ Hyperkeratotic lesions RIGHT foot: media l hallux IPJ, plantar medial 1st MPJ
--- OUTSIDE RECORDS SUMMARY | 2024-08-14 16:39 | XMS_ITS | Patient Health Record ---
Author Organization [facility] aishwarya Address [address] [place] [address] Care Team Providers Care Ethylbenzene Oxidizer Name Role Phone Monika Cosme Primary Care Provider Monika Cosme MD Unavailable Unavailable Chelsi García Unavailable [phone] Allergies Allergen (clinical drug ingredient) Drug/Non Drug Allergy documented on EMR Reaction Allergy Type Onset Date Status erythromycin Erythromycin Unknown Drug Allergy 05/12/2020 Active clindamycin Clindamycin Unknown Drug Allergy 05/12/2020 Ac tive Substance with penicillin structure and antibacterial mechanism of action (substance) Penicillins Unknown Drug Allergy 04/05/2006 Active Results Component Value Reference Range Notes UA Micro (All Sites) (Not ye t reviewed by provider) Interpretation: Performing Lab:[facility] , [address] [facility] [address] Notes/Report: WBC, Ur 0-5 0-5 /HPF RBC, Ur 0-2 0-2 /HPF Epithl Squam, Ur 1-5 0-5 /HPF Bacteria, Ur Trace Culture reflex comment See Below Refle x conditions for urine culture (WBC >10) not met. Mucous Ur Present eGFR (Not yet reviewed by carlyn goodrich) Interpretation: Performing Lab:[facility] , [address] [facility] [address] Notes/Report: eGFR 87 >=60 mL/min/1.73 m2 Interpretive Data Reference Interval Normal >/= 90 mL/min/1.73m2 Mildly decreased* 60 - 89 mL/min/1.73m2 Mildly to moderately decreased 45 - 59 mL/min/1.73m2 Moderately to severely decreased 30 - 44 mL/min/1.73m2 Severely decreased 15 - 29 mL/min/1.73m2 Kidney Failure < 15 mL/min/1.73m2 *Relative to young adult level Estimated glomerular filtration rate is determined by the 2020 CKD-EPI equation recommended by the National Kidney Foundation (A Unifying Approach to GFR Estimation: Recommendations of the NKF-ASK Task Force on Reassessing the Inclusion of Race in Diagnosing Kidney Disease, JASN 2020). The CKD-EPI equation should not be used for patients with unstable renal function and has not been validated in children and those over 70. Current interpretive data was last reviewed 2021. Differential Automated (Not yet reviewed by provider) Interpretation: Performing Lab:[facility] , [address] [facility] [address] Notes/Report: Neut Abs 5.43 1.50-6.50 K/cumm ImmGran Abs 0.03 0.00-0.10 K/cumm Lymphocyte Abs 1.78 0.80-3.30 K/cumm Aiken Abs 0.55 0.20-0.80 K/cumm Eos Abs 0.25 0.00-0.50 K/cumm Baso Abs 0.04 0.00-0.10 K/cumm Neut Pct 67.2 Interpretive Data Percent cell count reference ranges are not reported, since discordance with absolute values may lead to misinterpretation of CBC data. Current Interpretive Data was last revised on 2017. ImmGran Pct 0.4 Interpretive Data Percent cell count reference ranges are not reported, since discordance with absolute values may lead to misinterpretation of CBC data. Current Interpretive Data was last revised on 2017. Lymph Pct 22.0 Interpretive Data Percent cell count reference ranges are not reported, since discordance with absolute values may lead to misinterpretation of CBC data. Current Interpretive Data was last revised on 2017. Aiken Pct 6.8 Interpretive Data Percent cell count reference ranges are not reported, since discordance with absolute values may lead to misinterpretation of CBC data. Current Interpretive Data was last revised on 2017. Eos Pct 3.1 Interpretive Data Percent cell count reference ranges are not reported, since discordance with absolute values may lead to misinterpretation of CBC data. Current Interpretive Data was last revised on 2017. Baso Pct 0.5 Interpretive Data Percent cell count reference ranges are not reported, since discordance with absolute values may lead to misinterpretation of CBC data. Current Interpretive Data was last revised on 2017. eGFR Reviewed date:03/13/2024 04:15:43 PM Interpretation: Performing Lab:[facility] , [address] [place] [address]. [place] [address] Notes/Report: eGFR 81 >=60 mL/min/1.73 m2 Interpretive Data Reference Interval Normal >/= 90 mL/min/1.73m2 Mildly decreased* 60 - 89 mL/min/1.73m2 Mildly to moderately decreased 45 - 59 mL/min/1.73m2 Moderately to severely decreased 30 - 44 mL/min/1.73m2 Severely decreased 15 - 29 mL/min/1.73m2 Kidney Failure < 15 mL/min/1.73m2 *Relative to young adult level Estimated glomerular filtration rate is determined by the 2020 CKD-EPI equation recommended by the National Kidney Foundation (A Unifying Approach to GFR Estimation: Recommendations of the NKF-ASK Task Force on Reassessing the Inclusion of Race in Diagnosing Kidney Disease, JASN 2020). The CKD-EPI equation should not be used for patients with unstable renal function and has not been validated in children and those over 70. Current interpretive data was last reviewed 2021. Differential Automated Reviewed date:03/13/2024 04:15:43 PM Interpretation: Performing Lab:[facility] , [address] [place] [address]. [place] [address] Notes/Report: Neut Abs 4.7 1.5-6.5 K/cumm ImmGran Abs 0.0 0.0-0.1 K/cumm Lymphocyte Abs 1.7 0.8-3.3 K/cumm Aiken Abs 0.6 0.2-0.8 K/cumm Eos Abs 0.2 0.0-0.5 K/cumm Baso Abs 0.0 0.0-0.1 K/cumm Neut Pct 65.3 Interpretive Data Percent cell count reference ranges are not reported, since discordance with absolute values may lead to misinterpretation of CBC data. Current Interpretive Data was last revised on 2017. ImmGran Pct 0.4 Interpretive Data Percent cell count reference ranges are not reported, since discordance with absolute values may lead to misinterpretation of CBC data. Current Interpretive Data was last revised on 2017. Lymph Pct 23.7 Interpretive Data Percent cell count reference ranges are not reported, since discordance with absolute values may lead to misinterpretation of CBC data. Current Interpretive Data was last revised on 2017. Aiken Pct 7.6 Interpretive Data Percent cell count reference ranges are not reported, since discordance with absolute values may lead to misinterpretation of CBC data. Current Interpretive Data was last revised on 2017. Eos Pct 2.4 Interpretive Data Percent cell count reference ranges are not reported, since discordance with absolute values may lead to misinterpretation of CBC data. Current Interpretive Data was last revised on 2017. Baso Pct 0.6 Interpretive Data Percent cell count reference ranges are not reported, since discordance with absolute values may lead to misinterpretation of CBC data. Current Interpretive Data was last revised on 2017. TSH Reflex FT4 (Not yet revi ewed by provider) Interpretation: Performing Lab:[facility] , [address] [place] [address]. [place] [address] Notes/Report: TSH (Dunlap) 0.57 0.30-4.20 mcIUnit/mL T3 Free (Not yet reviewed by provider) Interpretation: Performing Lab:[facility] , [facility] [facility]. [place] [address] Notes/Report: Free T3 3.4 2.0-4.4 pg/mL Lipid Panel (Not yet reviewe d by provider) Interpretation: Performing Lab:[facility] , [address] [place] [address]. [place] [address] Notes/Report: Cholesterol 192 30-199 mg/dL Interpretive Data Ages < or = 19 years Acceptable: <170 mg/dL Borderline high: 170-199 mg/dL High: >or= 200 mg/dL Ages > or = 20 years Desirable: <200 mg/dL Borderline high: 200-239 mg/dL High: >or= 240 mg/dL Literature References: 1. Expert Panel on Integrated Guidelines for Cardiovascular Health and Risk Reduction in Children and Adolescents. Pediatrics 2011;128:S213 2. NCEP Expert Panel. Circulation 2004;110:227 Current Interpretive Data was last revised on 2017. Triglycerides 132 <=149 mg/dL Interpretive Data Ages < or = 9 years Acceptable: <75 mg/dL Borderline high: 75-99 mg/dL High: >or= 100 mg/dL Ages 10 to 20 years Acceptable: <90 mg/dL Borderline high: 90-129 mg/dL High: >or= 130 mg/dL Ages > or = 20 years Desirable: <150 mg/dL Borderline high: 150-199 mg/dL High: 200-499 mg/dL Very high: >or= 499 mg/dL Literature References: 1. Expert Panel on Integrated Guidelines for Cardiovascular Health and Risk Reduction in Children and Adolescents. Pediatrics 2011;128:S213 2. NCEP Expert Panel. Circulation 2004;110:227 Current Interpretive Data was last revised on 2017. HDL Cholesterol 67 >=40 mg/dL Interpretive Data Ages < or = 19 years Acceptable: >45 mg/dL Borderline low: 40-45 mg/dL Low: <40 mg/dL Ages > or = 20 years Desirable: >or= 60 mg/dL Low: <40 mg/dL Literature References: 1. Expert Panel on Integrated Guidelines for Cardiovascular Health and Risk Reduction in Children and Adolescents. Pediatrics 2011;128:S213 2. NCEP Expert Panel. Circulation 2003;110:227 Current Interpretive Data was last revised on 2017. LDL Cholesterol, calculated 102 <=129 mg/dL Interpretive Data Ages < or = 19 years Acceptable: <110 mg/dL Borderline high: 110-129 mg/dL High: >or= 130 mg/dL Ages > or = 20 years Optimal: <100 mg/dL Near optimal: 100-129 mg/dL Borderline high: 130-159 mg/dL High: >160 mg/dL Calculated using the Ramo LDL-C estimating equation. This equation was implemented on 2023. Prior to this date LDL-C was estimated using the Friedewald equation. Literature References: 1. Expert Panel on Integrated Guidelines for Cardiovascular Health and Risk Reduction in Children and Adolescents. Pediatrics 2011;128:S213 2. NCEP Expert Panel. Circulation 2004;110:227 3. Ramo Clark et al. ZIA Cardiol. 2020 August 29;5(5):540-548. doi: 10.1001/jamacardio.2020.0013 Current Interpretive Data was last revised on 2023. Non-HDL Cholesterol 125 Interpretive Data Ages < or = 19 years Acceptable: <120 mg/dL Borderline high: 120-144 mg/dL High: >145 mg/dL Ages > or = 20 years When triglycerides are >200 mg/dL, Non-HDL cholesterol is a secondary target of therapy with treatment goals that are 30 mg/dL greater than the LDL cholesterol target. Literature References: 1. Expert Panel on Integrated Guidelines for Cardiovascular Health and Risk Reduction in Children and Adolescents. Pediatrics 2011;128:S213 2. NCEP Expert Panel. Circulation 2004;110:227 Current Interpretive Data was last revised on 2017. Cholesterol/HDL ratio 3 Hemoglobin A1C (Not yet revi ewed by provider) Interpretation: Performing Lab:[facility] , [address] [facility]. [place] [address] Notes/Report: Hemoglobin A1C 5.7 4.0-5.6 % Est Average Glucose 117 The ADA recommends reporting an estimated Average Glucose (eAG) with all Hemoglobin A1c results using the equation derived from a study of 507 normal and diabetic adults. Minority populations were underrepresented and children were not included. (Diabetes Care 31:9774-2140, 2008). The eAG is not equivalent to a fasting glucose. Comprehensive metabolic pane l (CMP) (Not yet reviewed by provider) Interpretation: Performing Lab:[facility] , [address] [place] [address] Notes/Report: Sodium 140 135-145 mmol/L Plasma Potassium 4.0 3.3-4.9 mmol/L Chloride 101 97-110 mmol/L Total CO2 28 22-32 mmol/L Anion Gap 11 2-15 mmol/L BUN 22 6-25 mg/dL Creatinine 0.59 0.60-1.10 mg/dL Glucose 101 70-199 mg/dL Interpretive Data Fasting glucose >/= 126 mg/dl is diagnostic for diabetes. Fasting is defined as no caloric intake for at least 8 hours. Fasting glucose between 100 mg/dl to 125 mg/dl is diagnostic of prediabetes. In a patient with classic symptoms of hyperglycemia or hyperglycemic crisis, a random glucose >/= 200 mg/dl is diagnostic for diabetes. In the absence of unequivocal hyperglycemia, results should be confirmed by repeat testing. The classification and Diagnosis of Diabetes Diabetes Care 202; 46: S19-S40. Current interpretive data was last revised 2022. Total Calcium 10.8 8.5-10.3 mg/dL Total Bilirubin 0.7 0.1-1.2 mg/dL Plasma Total Protein 7.6 6.5-8.5 g/dL Albumin 4.5 3.5-5.0 g/dL Alkaline Phosphatase 81 40-130 Units/L ALT 17 7-45 Units/L AST 27 10-45 Units/L CBC w auto diff (Not yet rev iewed by provider) Interpretation: Performing Lab:[facility] , [address] [facility]. [place] [address] Notes/Report: WBC 8.08 3.80-9.90 K/cumm Hgb 13.6 11.9-15.5 g/dL Hct 44.0 35.6-45.5 % Platelet Ct 175 150-400 K/cumm MPV 13.4 9.1-12.3 fL RBC 4.76 3.90-5.20 M/cumm MCV 92.4 81.3-96.4 fL MCH 28.6 27.1-33.3 pg MCHC 30.9 32.3-35.7 g/dL RDW CV 15.0 11.1-14.9 % RDW SD 51.2 35.7-48.1 fL NRBC Abs Auto 0.00 0.00-0.01 K/cumm UA, reflex Micro to Culture (Not yet reviewed by provider) Interpretation: Performing Lab:[facility] , [address] [facility]. [place] [address] Notes/Report: Color, Ur Yellow Yellow Clarity, Ur Turbid Clear Spec Grav, Ur 1.020 1.003-1.03 pH, Ur 6.5 Interpretive Data ?Urine pH is affected by diet, medications, systemic acid-base disturbances, and renal tubular function. pH may affect urinary stone formation. For example, urine pH below 6.0 may help reduce the tendency for calcium phosphate stones and pH greater than 6.0 may reduce the tendency for uric acid stone formation. Source: POPAPP Current Interpretive Data was last revised on 2017 Protein, Ur Ql Negative Negative Glucose, Ur Ql Negative Negative Ketones, Ur Negative Negative Bilirubin, Ur Negative Negative Blood, Ur Negative Negative Urobilinogen, Ur <2.0 <2.0 mg/dL Nitrite, Ur Positive Negative Leukocyte Esterase, Ur Negative Negative UA reflex comment See Below Reflex to microscopic UA will be performed. PT / INR Reviewed date:03/11/2024 08:04:26 AM Interpretation: Performing Lab:[facility] , [address] [place] [address]. [facility] [address] Notes/Report: PT 10.8 9.7-13.0 sec INR 1.00 0.90-1.20 Interpretive data Oral anticoagulant therapeutic ranges: Venous thromboembolism prophylaxis or treatment: 2.0-3.0 CARDIOLOGY Standard range: 2.0-3.0 High-intensity range: 2.5-3.5 Refer to indication-specific guidelines for appropriate target ranges for prosthetic heart valve replacement. Current interpretive data was last revised on 2019. Comprehensive metabolic pane l (CMP) Reviewed date:03/11/2024 08:04:26 AM Interpretation: Performing Lab:[facility] , [address] [place] [address]. [facility] [address] Notes/Report: Sodium 140 135-145 mmol/L Plasma Potassium 4.1 3.3-4.9 mmol/L Chloride 101 97-110 mmol/L Total CO2 29 22-32 mmol/L Anion Gap 10 2-15 mmol/L BUN 26 6-25 mg/dL Creatinine 0.72 0.60-1.10 mg/dL Glucose 98 70-199 mg/dL Interpretive Data Fasting glucose >/= 126 mg/dl is diagnostic for diabetes. Fasting is defined as no caloric intake for at least 8 hours. Fasting glucose between 100 mg/dl to 125 mg/dl is diagnostic of prediabetes. In a patient with classic symptoms of hyperglycemia or hyperglycemic crisis, a random glucose >/= 200 mg/dl is diagnostic for diabetes. In the absence of unequivocal hyperglycemia, results should be confirmed by repeat testing. The classification and Diagnosis of Diabetes Diabetes Care 2021; 46: S19-S40. Current interpretive data was last revised 2022. Total Calcium 10.6 8.5-10.3 mg/dL Total Bilirubin 0.6 0.1-1.2 mg/dL Plasma Total Protein 8.0 6.5-8.5 g/dL Albumin 4.3 3.5-5.0 g/dL Alkaline Phosphatase 91 40-130 Units/L ALT 26 7-45 Units/L AST 30 10-45 Units/L CBC w auto diff Reviewed date:03/11/2024 08:04:26 AM Interpretation: Performing Lab:[facility] , [address] [facility] [address] Notes/Report: WBC 7.2 3.8-9.9 K/cumm Hgb 12.6 11.9-15.5 g/dL Hct 41.3 35.6-45.5 % Platelet Ct 168 150-400 K/cumm MPV 13.1 9.1-12.3 fL RBC 4.34 3.90-5.20 M/cumm MCV 95.2 81.3-96.4 fL MCH 29.0 27.1-33.3 pg MCHC 30.5 32.3-35.7 g/dL RDW CV 15.4 11.1-14.9 % RDW SD 54.1 35.7-48.1 fL NRBC Abs Auto 0.00 0.00-0.01 K/cumm Reason For Referral No Information Medications Medication SIG (Take, Route, Frequency, Duration) Notes Start Date End Date Status Aspirin 81 81 MG 1 tablet Orally Once a day for 30 day(s) Active Losartan Potassium-HCTZ 100-25 MG TAKE 1 TABLET BY MOUTH ONCE A DAY (STOP LISINOPRIL HCTZ) Oral for 90 Days Active amLODIPine Besylate 10 MG 1 tablet Oral Once a day for 90 days 09/14/2022 Active Atorvastatin Calcium 40 MG 1 tablet Orally Once a day for 30 day(s) Active Nizoral Psoriasis Shampoo/Cond 3 % 1 application as needed Externally Two times a Week Active Metoprolol Succinate 25 MG 1 capsule Orally Once a day for 90 days 08/01/2023 Active Tacrolimus 0.1 % 1 application Externally Once a day Active Cosopt 2-0.5 % 1 drop into affected eye Ophthalmic Twice a day Active Clobetasol Propionate 0.05 % 1 application Externally Twice a day Active T-BELKIS 3 % use as directed topically 2-3 times a week as needed External *Reorder from Medispan for eRx and Interaction Alerts* 09/22/2022 Not-Taking Immunizations Vaccine Route Administration Date Status Comme nts COVID- Vaccine mRNA IM Intramuscular 01/26/2023 Administer ed JULY B Influenza (split), 3 yrs and above Unknown 01/30/2020 Administered Influenza high dose > 65 [facility] Unknown 03/27/2018 Administered schnucks Influenza high dose > 65 [facility] Unknown 02/08/2019 Administered schnucks Influenza high dose > 65 [facility] IM Intramuscular 02/09/2022 Administered Infuenza, trivalent, recombinant, preservative free Unknown 01/21/2010 Administered migrated LegPatid= [id number] Date=01/21/2010 Vac= Influenza Infuenza, trivalent, recombinant, preservative free IM Intramuscular 02/11/2011 Administered [facility] [place] Infuenza, trivalent, recombinant, preservative free IM Intramuscular 02/26/2013 Administered cc Pneumococcal conjugate PCV 13 Unknown 05/28/2001 Administered migrated LegPatid= [id number] Date=05/28/2001 Vac= PCV series Pneumococcal conjugate PCV 13 Unknown 05/13/2010 Administered migrated LegPatid= [id number] Date=05/13/2010 Vac= Pneumonia vaccine Pneumococcal conjugate PCV 13 IM Intramuscular 11/04/2014 Administered Pneumococcal conjugate PCV 20 IM Intramuscular 08/01/2023 Administered Td (adult) Unknown 05/28/2001 Administered migrated LegPatid= [id number] Date=05/28/2001 Vac= TD Social History Tobacco Use: Social History Observation Description Date Details (start date - stop date) Former Smoker NA - NA Tobacco Control (Standard) Question Answer Notes Tobacco use: Former smoker Problems Problem Type SNOMED Code ICD Code Onset Dates Problem Status W/U Status Risk Notes Problem 353568992 Mixed hyperlipidemia (E78.2) Active confirmed Problem 50894643 Essential hypertension (I10) Active confirmed Problem Hypothyroidism (81423519) Hypothyroidism, unspecified (E03.9) 2006 Active confirmed Problem Pure hypercholesterolemia (629576890) Pure hypercholesterolem ia (E78.0) 2007 Active confirmed Problem Essential tremor (142181500) Essential tremor (G25.0) 2018 Active confirmed Problem Glaucoma (72377478) Unspecified glaucoma (H40.9) Active confirmed Dr. Salvador every six month. [facility] Problem Angina pectoris (384405263) Angina pectoris, unspecified (I20.9) 2009 Active confirmed SSCP. Negative stress echo 06/2011 Problem Cerebrovascular disease (04455092) Cerebrovascular disease, unspecified (I67.9) 2015 Active confirmed Problem Disorder of bronchus (disorder) (74839928) Other diseases of bronchus, not elsewhere classified (J98.09) Active confirmed Problem Gastro-esophageal reflux disease without esophagitis (623142703) Gastro-esophageal reflux disease without esophagitis (K21.9) 2005 Active confirmed Problem Irritable bowel syndrome (35999975) Irritable bowel syndrome without diarrhea (K58.9) 2005 Active confirmed Problem Fibrocystic breast changes (10359635) Diffuse cystic mastopathy of unspecified breast (N60.19) 2005 Active confirmed Problem Left bundle branch block (76825895) Left bundle-branch block, unspecified (I44.7) 2014 Active confirmed s/p cath in 2010 Vital Signs Heart Rate 58 /min 08/06/2024 Temperature 97.9 degrees Fahrenheit 08/06/2024 Oximetry 95 % 08/06/2024 Blood pressure diastolic 82 mm Hg 08/06/2024 Height-cm 154.94 cm 08/06/2024 Weight-kg 65.23 kg 08/06/2024 Height 61 in 08/06/2024 Blood pressure systolic 166 mm Hg 08/06/2024 Weight 143.8 lbs 08/06/2024 BMI 27.17 kg/m2 08/06/2024 Encounters Encounter Location Date Provider Diagnosis [facility] [address] [place] [address] 03/07/2024 Chelsi García Abdominal wall herni a K43.9 and Pre-op evaluation Z01.818 [facility] [address] [place] [address] 08/06/2024 Monika Cosme Medicare annual wellness visit, subsequent Z00.00 ; Essential hypertension I10 ; Mixed hyperlipidemia E78.2 ; Hyperglycemia R73.9 ; Other fatigue R53.83 ; Acute abdominal pain R10.9 and Chronic constipation K59.09 [facility] [address] [place] [address] 08/08/2024 [facility] [address] [place] [address] 08/08/2024 [facility] [address] [place] [address] 03/09/2024 Monika Cosme [facility]- [facility] [address] [place] [address] 03/11/2024 [facility] Ba [facility] [address] [place] [address] 08/14/2024 Monika Cosme Wrist pain, left M25.532 Assessments Encounter Date Diagnosis (ICD Code) Assessment Notes Treatment Notes Treatment Clinical Notes Section Notes 03/07/2024 Abdominal wall hernia (ICD-10 - K43.9) 08/14/2024 Wrist pain, left (ICD-10 - M25.532) 08/06/2024 Essential hypertension (ICD-10 - I10) record BP daily and show the log to Dr Pito Reed 08/06/2024 Medicare annual wellness visit, subsequent (ICD-10 - Z00.00) diet and exercise 03/07/2024 Pre-op evaluation (ICD-10 - Z01.818) 08/06/2024 Mixed hyperlipidemia (ICD-10 - E78.2) check labs on statin 08/06/2024 Hyperglycemia (ICD-10 - R73.9) 08/06/2024 Other fatigue (ICD-10 - R53.83) 08/06/2024 Acute abdominal pain (ICD-10 - R10.9) check ct abdomen and pelvis 08/06/2024 Chronic constipation (ICD-10 - K59.09) continue Miralax as directed, prunes and drinking water Plan Of Treatment Pending Test Test Name Order Date X ray : Wrist, left 08/14/2024 CT Scan : Abd & Chest without IV contras t with oral contrast 08/06/2024 Chest X-ray PA and lateral 03/07/2024 Hemoglobin A1c 08/01/2023 CBC With Differential/Platelet 4 Lipid Panel And Chol/HDL Ratio 4 Chem-Comprehensive 08/01/2023 Urinalysis IH 08/01/2023 CBC w auto diff 08/06/2024 Comprehensive metabolic panel (CMP) 11/2024 Differential Automated 08/06/2024 Hemoglobin A1C 08/06/2024 Lipid Panel 08/06/2024 T3 Free 08/06/2024 TSH Reflex FT4 08/06/2024 UA, reflex Micro to Culture 08/06/2024 UA Micro (All Sites) 08/06/2024 eGFR 08/06/2024 Next Appt Details Provider Name:Monika Cosme, 12/13/2024 09:15:00 AM, [address], [place], [address], Provider Name:Monika Cosme, 08/08/2025 09:30:00 AM, [address], [place], [address], Insurance Providers Payer Name Payer Address Payer Phone Subscriber Number Group Number Insured Name Patient Relationship to Insured Coverage Start Date Coverage End Date [employer] Medicare Ppo [address] [place] [address] [id number] Star Schwarz Self - patient is the insured DO NOT USE - Medicare [place] Mbi [address] [place] [address] [id number] Star Schwarz Self - patient is the [facility] [address] [place] [address] [id number] Star Schwarz Self - patient is the insured DO NOT USE - [employer] [address] [address] [place], [place] [id number] Star Schwarz Self - patient is the insured 9 [employer] [address] [place] [address] [id number] Star Schwarz Self - patient is the insured Medical (General) History Medical History History ICD Code * Cardiac Cath: 30-40% lesions only in l ad, Date of Onset: 06/23/10; * Last Colonoscopy: polyps- benign , Date of Onset: 12/29/2010 JRT; * Last EGD: egd normal., Date of Onset: 07/23/14; * last mammogram: Dr. Sussy cloud following post cancer. , Date of Onset: 06/2017; * NO FRACTURES; * TRANSFUSIONS RECEIVED: with C/S; * TSL: 01/29/2018 - 2; *LAST ECHO, Date of Onset: 08/06/13; *Last Eye Exam: Glaucoma, Date of Onset: q year; Actinic Keratosis, Date of Onset: 2005 ; Angina pectoris: SSCP. Negative stress e cho 06/2011, Date of Onset: 2009; Islas's Cyst; Breast Cancer ER or [place] Posit ai: s/p lumpectomy and now on letrozole T1C1, Date of Onset: 07/2012; Breast Cancer, Personal Hist ory Of: s/p left lumpectomy and now on letrozole., Date of Onset: 08/29/2013; Colonic Polyps, Personal History of, Bill e of Onset: 08/31/2006 ; Dilated bile duct: s/p eus. No reason fo r dilataed bd; dvt leg, Date of Onset: 2014; Essential tremor: new onset. Intention only. Tone is normal also. Monitor. , Date of Onset: 08/23/2018; Fibrocystic disease of breast, Date of O nset: 04/05/2006 ; Gastroesophageal Reflux, Date of Onset: 04/05/2006 ; Glaucoma: Dr. Salvador every six month. [facility], Date of Onset: Q six m onths; Hyperlipidemia, Date of Onset: 11/13/200 8 ; Hypertension, essential, Date of Onset: 04/05/2006 ; Hypothyroidism, Acquired, Date of Onset: 10/16/2006 ; Irritable Bowel Syndrome, Date of Onset: 04/05/2006 ; LBBB (left bundle branch block): s/p cat h in 2010, Date of Onset: 2014; Lung Disease/Solitary Lung Nodule; Malignant Breast Neoplasm: l eft breast. s/p lumpectomy and now hrt, Date of Onset: 07/2012; Sciatica, Date of Onset: 06/13/2008 ; Seborrheic Keratosis, Date of Onset: 09/2005 ; Small vessel disease, cerebr ovascular: getting carotid doppler, Date of Onset: 05/05/2015; Tension Headache, Date of Onset: 010 ; Surgical History Surgery Date(Month/Year) Ceasarean section; 2010-12-16 Cholecystecomy; 2010-12-16 Appendectomy; 2010-12-16 Hysterectomy: Ovaries intact; 2010-12-16 Cataract extraction with IOLI; 2011-05-02 breast lump: Dr. Ayala left , Date of Pr ocedure: 07/2012; 2013-08-29 stint placement 05/2023 Hospitalization History Reason Date(Month/Year)
--- OUTSIDE RECORDS SUMMARY | 2024-08-14 16:39 | XMS_ITS ---
Author Organization [facility] Address [address] [employer] [address] [address] Care Team Providers Care Hand Coper Name Role Phone Monika Cosme Primary Care Provider Marquita Ramos Unavailable [phone] Allergies Allergen (clinical drug ingredient) Drug/Non Drug [...] EVERY DAY Oral for 30 Days Active Atorvastatin Calcium 40 MG TAKE 1 TABLET BY MOUTH EVERY NIGHT Oral for 90 Days Active amLODIPine Besylate 10 MG Oral for 90 Days Active Rocklatan 0.02-0.005 % INSTILL 1 DROP IN TO EACH EYE EVERY NIGHT AT BEDTIME Ophthalmic for 57 Days Active Metoprolol Succinate ER 25 MG Oral for 90 Days Active Multivitamin Active Tylenol Active PreserVision AREDS 2 Active Losartan Potassium A ctive Vital Signs Height 62 in 05/09/2024 Weight 145 lbs 05/09/2024 BMI 26.52 kg/m2 05/09/2024 Encounters Encounter Location Date Provider Diagnosis [facility] [place] [place] [facility] [address] [address] 05/09/2024 Marquita Leyva Callus of foot L84 ; Atherosclerosis, generalized 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 Next Appt Details Follow Up: 3 Months,prn, Paola son: Provider Name:Marquita Leyva, 10/17/2024 10:00:00 AM, [address], [facility], [place], [address], Procedure Notes * Category Sub-Category Detail Notes PALLIATIVE FOOT CARE: Callus paring: (56897) Le ss than five calluses as noted above reduced with a sterile scalpel blade Nail debride (34586): Debridement of at least six mycotic and/or hypertrophic nails performed:, utilizing manual and electric debridement the affected nails were reduced the nails in length and thickness with curettage of debris from nail margins performed as needed. Nail thickness reduced by:, 10% Progress Notes * Star TORRES CDOB: [birth year] (88 yo F)Acc No.[id number]:05/09/2024 Progress Note Patient: Carroll LUZ MARIARONNELLOMARStar Serena Provider: Simone Leyva DPM :1935 A ge:88 Y S ex:Female Date:05/09/2024 Address:[address] [place], [place] [id number] Pcp:Monika Cosme Subjective: * Chief Complaints: * H igh Risk Foot care * HPI: Amber Garrett assisting with visit:: HPI/Rooming: Fletcher alan reason for visit:: At Risk Foot Care: [age] y/o female RTO for at risk foot care. Reports no acute issues with nails or calluses today. Pt states her TA and T5 nails grow fast and she tried trimming them. . * ROS: * MULTI-SYSTEM REVIEW:: Nausea, fever or chillls d enies. A ny change in medications since last visit? d enies. A ny changes in medical history/hospitalizations? d enies. * Medical History: * Surgical History: L T bunionectomy 1998Cardiac stent placed due to blockage 05/17/2023LT knee replacement yst removal 08/2023 * Hospitalization/Major Diagno stic Procedure: * Family History: Parkinson's disease. * Medications: T akingLosartan Potassium Multivitamin Tylenol PreserVision AREDS 2 Rocklatan 0.02-0.005 % Solution INSTILL 1 DROP INTO EACH EYE EVERY NIGHT AT BEDTIME Ophthalmic amLODIPine Besylate 10 MG Tablet Oral Aspirin Low Dose 81 MG Tablet Delayed Release TAKE 1 TABLET BY MOUTH EVERY DAY Oral Atorvastatin Calcium 40 MG Tablet TAKE 1 TABLET BY MOUTH EVERY NIGHT Oral Metoprolol Succinate ER 25 MG Tablet Extended Release 24 Hour Oral Medication List reviewed and reconciled with the patientTaking Losartan Potassium Taking Multivitamin Taking Tylenol Taking PreserVision AREDS 2 Taking Rocklatan 0.02-0.005 % Solution INSTILL 1 DROP INTO EACH EYE EVERY NIGHT AT BEDTIME Ophthalmic Taking amLODIPine Besylate 10 MG Tablet Oral Taking Aspirin Low Dose 81 MG Tablet Delayed Release TAKE 1 TABLET BY MOUTH EVERY DAY Oral Taking Atorvastatin Calcium 40 MG Tablet TAKE 1 TABLET BY MOUTH EVERY NIGHT Oral Taking Metoprolol Succinate ER 25 MG Tablet Extended Release 24 Hour Oral Medication List reviewed and reconciled with the patient * Allergies: P enicillinErythromycinClindamycinno[Allergies Verified] Objective: * Vitals: W t:145lbs, Wt-k.77 kg, Ht: 62 in, BMI:26.52Index. * Examination: G eneral Examination: Constitutional / Appearance: N o acute distress , Well nourished, Appropriate personal hygiene. Mental status: C ooperative, Oriented to person, place and time, Mood and affect: normal, Judgement and intellect: normal with appropriate response to questions. Shoes today: t sugar shoe. L ower Extremity VASCULAR: : Pulses: D [...] P ALLIATIVE FOOT CARE:: Callus paring: ( [id number]) Less than five calluses as noted above reduced with a sterile scalpel blade. Nail debride (44221): D ebridement of at least six mycotic and/or hypertrophic nails performed:, utilizing manual and electric debridement the affected nails were reduced the nails in length and thickness with curettage of debris from nail margins performed as needed. Nail thickness reduced by:, 10%. * Procedure Codes: 1 1056 TRIM SKIN LESIONS, 2 TO 4, Modifiers: Q8 [id number] DEBRIDE NAIL, 6 OR MORE, Modifiers: Q8 , 59 * Preventive Medicine: Counseling: C are goal follow-up plan: BMI counseling provided to patient:?Lifestyle education Screenings: F ALL RISK SCREENING Fall Risk Assessment: O ne fall with injury in the past year * Follow Up: 3 Months,prn * Images: * GER TECHNICAL TRAINING Sign off status: Completed true * Provider: Simone Leyva DPM Date: 0 05/09/2024 Generated for Blanca adkins/Adriana/eTransmitting on: 0 08/14/2024 04:39 PM CDT History and Physical Notes * HPI (History of Present Illness) Category Sub-Category Detail Notes Category Not es Primary reason for visit: At Risk Foot Care: 88 y/o female RTO for at risk foot care. Reports no acute issues with nails or calluses today. Pt states her TA and T5 nails grow fast and she tried trimming them. MA assisting with visit: HPI/Rooming: [facility] Examination Category Sub-Category Detail Notes Category Not es General Examination Mental status: Cooperative, Oriented to person, place and time, Mood and affect: normal, Judgement and intellect: normal with appropriate response to questions Shoes today: tennis shoe Constitutional / Appearance: No acute di stress [...]
--- OUTSIDE RECORDS SUMMARY | 2024-08-14 16:39 | XMS_ITS | Encounter Summary ---
Author Organization [facility] Address [address] [place] [address] Care Team Providers Care Formulation Technician Name Role Phone Jett Rivero MD Primary Care Provider Monika Cosme MD Primary Care Provider [phone] Pito Reed MD Unavailable Encounter Details Date Type Department Care Team (Late st Contact Info) Description 05/21/[address] [facility] [address] [place] [address] Transcribed Order, Provider Social History Tobacco Use Types Packs/Day Years Used Date Smoking Tobacco: Former Smokeless Tobacco: Never Comments:Smoking History Pac ks/day: 0.5 Packs quit 2012 Alcohol Use Standard Drinks/Week Comments Yes 1 (1 standard drink = 0.6 oz pur e alcohol) occasional Comments Unknown Sex and Gender Information Value Date Recorded Sex Assigned at Not on file Legal Sex Female 2:43 AM DEVICE ENGINEER Gender Identity Not on file Sexual Orientation Not on file documented as of this encounter Plan of Treatment Not on file documented as of this encounter Visit Diagnoses Not on filedocumented in this encounter Additional Health Concerns Infection Onset Date Last Indicated Resolved Time COVID: Suspected 05/09/2022 05/09/2022 05/09/2022 10:10 PM DEVICE ENGINEER COVID: Suspected 07/07/2022 07/07/2022 07/07/2022 12:16 PM DEVICE ENGINEER COVID19 07/07/2022 07/07/2022 07/17/2022 3:05 AM CDT COVID: Recovered Comment:Added based on recent COVID infection. 07/17/2022 08/05/2022 10/15/2022 3:05 AM C DT Exposure, COVID-19 Comment:Added automatically based on COVID19 lab answers indicating exposure risk 05/05/2023 05/05/2023 05/15/2023 3:[address] COVID: Suspected 05/05/2023 05/05/2023 05/05/2023 11:02 AM DEVICE ENGINEER COVID: Suspected 05/05/2023 05/05/2023 05/05/2023 3:40 PM DEVICE ENGINEER COVID: Suspected 07/14/2023 07/14/2023 07/14/2023 9:27 PM CDT COVID: Suspected 01/19/2024 01/19/2024 01/19/2024 7:05 PM CDT COVID19 01/19/2024 01/19/2024 01/29/2024 3:05 AM CDT COVID: Recovered Comment:Added based on recent COVID infection. 01/29/2024 01/29/2024 04/28/2024 3:[address] documented as of this encounter Care Teams Formulation Technician Relationship Specialty Start Date End Date Jett Rivero MD PCP - General 08/02/16 05/21/20 Monika Cosme MD [address] [place] [address] PCP - General 05/22/20 [place] [address] [place] [address] Consulting Physician Cardiology 05/18/23 documented as of this encounter
--- OUTSIDE RECORDS SUMMARY | 2024-08-14 16:39 | XMS_ITS ---
Author Organization [facility] aishwarya Address [address] [place] [address] Care Team Providers Care Burring Wheel Operator Name Role Phone Monika Cosme Primary Care Provider Ba BARTLETT, Monika Unavailable Unavailable REASON FOR VISIT CT order issue Encounters Encounter Location Date Provider Diagnosis [facility] [address] [place] [address] 08/08/2024 Monika Cosme Plan Of Treatment Next Appt Details Provider Name:Monika Cosme, 12/13/2024 09:15:00 AM, [address], [place], [address], Provider Name:Monika Cosme, 08/08/2025 09:30:00 AM, [address], [place], [address], Progress Notes * Star TORRES CDOB: [birth year] (89 yo F)Acc No.[id number]:08/08/2024 Patient: Carroll Star HAHN :1935 A ge:89 Y S ex:Female Address:[address] [facility], [place], [address] * * Date:
--- OUTSIDE RECORDS SUMMARY | 2024-08-14 16:39 | XMS_ITS | CONTINUITY OF CARE DOCUMENT ---
Author Name kervin galeana Address Unknown Organization [facility] Address [address] [place] [address] Phone [phone] Care Team Providers Care Real Estate Marketing Coordinator Name Role Phone Derek BARTLETT, Pito Unavailable YADIRA BARTLETT, MONICA Unavailable [phone] YADIRA BARTLETT, MONICA Unavailable [phone] PROBLEMS Condition Status Date Provider Notes DVT active Kleber Richteri Diverticulosis active Kleber Ahrenitazai Hypertension active Kleber Richteri Hx of breast cancer active Kleber Richteri Lower extremity edema active Kleber Baeza Chest pain completed - Pito Reed MD Preoperative cardiovascular evaluation completed - Pito Reed MD Left bundle branch block active Kleber Alexandra ai Osteoarthritis, knee, left active Nigel Mcintosh MD Shortness of breath active Kleber Baeza Chest pain--nl stress nuc, 05/2024 active Kleber Baeza Venous insufficiency active Kleber Baeza CAD-s/p JAMES to OM1 on 05/17/23 active Pito Reed MD -calcified LAD seen on abnormal CTA, CCS 1792, 03/2023 ENCOUNTERS Date Type Provider Location Encounter Diag nosis - In-person encounter Office Visit Pito Reed MD [facility] Left bundle branch blockChest pain--nl stress nuc, 05/2024Venous insufficiency - In-person encounter Office Visit Pito Reed MD [facility] - In-person encounter Office Visit Pito Reed MD [facility] - In-person encounter Office Visit Pito Reed MD [facility] - In-person encounter Office Visit Pito Reed MD [facility] CAD-s/p JAMES to OM1 o n 05/17/23 - In-person encounter Office Visit Pito Reed MD [facility] CAD-s/p JAMES to OM1 o n 05/17/23 - In-person encounter Office Visit Pito Reed MD [facility] Chest painPreoperati ve cardiovascular evaluationLeft bundle branch blockShortness of breathChest pain--nl stress nuc, 05/2024 - In-person encounter Office Visit Nigel Mcintosh MD [facility] Left bundle branch blockOsteoarthritis, knee, left - In-person encounter Office Visit Pito Reed MD [facility] VITAL SIGNS Date Observation Value Provider Body Mass Index (Ratio) 26.48 kg/m2 Rodolfo Reed MD pulse rate 57 /min Destiny Bowles blood pressure, diastolic 66 mm[Hg] Michelle Bowles blood pressure, systolic 125 mm[Hg] Yajaira lockwood Bowles oxygen saturation, oximetry 94 % Destiny Bowles weight E&M 144.8 [lb_av] Destiny Bowles blood pressure, cuff size regular Michelle Bowles height E&M 62 [in_i] Destiny Bowles Body Mass Index (Ratio) 27.07 kg/m2 Rodolfo Reed MD blood pressure, cuff size regular Ke rri Cherriecony blood pressure, diastolic 66 mm[Hg] Ke rri Cherriecony blood pressure, systolic 126 mm[Hg] Sara ri Celestino oxygen saturation, oximetry 95 % Maryann Seals pulse rate 64 /min Maryann Samuel lder weight E&M 148 [lb_av] Maryann Cherriee lder height E&M 62 [in_i] Maryann Samuel [facility] Body Mass Index (Ratio) 26.34 kg/m2 Rodolfo Reed MD blood pressure, diastolic 65 mm[Hg] Vi rod [facility] blood pressure, systolic 131 mm[Hg] Vip in [facility] pulse rate 63 /min [facility] oxygen saturation, oximetry 94 % [facility] respiratory rate E&M 12 /min Buck M scanan weight E&M 144 [lb_av] [facility] blood pressure, cuff size regular [facility] E&M 62 [in_i] [facility] Body Mass Index (Ratio) 26.70 kg/m2 Rodolfo Reed MD blood pressure, cuff size regular Va lerie Donny blood pressure, diastolic 68 mm[Hg] Va lerie Donny blood pressure, systolic 130 mm[Hg] Ashley dillon Donny respiratory rate E&M 12 /min Ellen Donny pulse rate 58 /min Ellen Donny oxygen saturation, oximetry 94 % Ellen Donny weight E&M 146 [lb_av] Ellen Donny height E&M 62 [in_i] Ellen Donny Body Mass Index (Ratio) 25.24 kg/m2 Rodolfo Reed MD blood pressure, diastolic 88 mm[Hg] Aviva cabrera Francisco blood pressure, systolic 173 mm[Hg] Macrina mckee Francisco blood pressure, cuff size large An deborah Francisco oxygen saturation, oximetry 94 % Carey Francisco pulse rate 65 /min Carey Francisco weight E&M 138 [lb_av] Carey Francisco height E&M 62 [in_i] Carey Francisco Body Mass Index (Ratio) 24.82 kg/m2 Rodolfo Reed MD pulse rate 77 /min Destiny Bowles oxygen saturation, oximetry 90 % Destiny Bowles blood pressure, diastolic 70 mm[Hg] Em irlanda Bowles blood pressure, systolic 126 mm[Hg] Yajairasamaria lockwood Bowles weight E&M 135.7 [lb_av] Destiny Bowles blood pressure, cuff size regular Em irlanda Bowles height E&M 62 [in_i] Destiny Bowles Body Mass Index (Ratio) 25.60 kg/m2 Rodolfo Reed MD blood pressure, cuff size regular Ke rri Gruenenfelder blood pressure, diastolic 77 mm[Hg] Ke rri Gruenenfelder blood pressure, systolic 150 mm[Hg] Ker ri Delfinonenfcony oxygen saturation, oximetry 93 % Maryann Celestino respiratory rate E&M 12 /min Maryann Willis camposenegerber pulse rate 71 /min Maryann Delfinonenfe lder weight E&M 140 [lb_av] Maryann Delfinonenfe lder height E&M 62 [in_i] Maryann Gruenenfe lder Body Mass Index (Ratio) 26.70 kg/m2 Dl Mcintosh MD respiratory rate E&M 17 /min Carey Yvonne chan pulse rate 72 /min Carey Francisco blood pressure, diastolic 77 mm[Hg] Aviva deborah Singh blood pressure, systolic 153 mm[Hg] Macrina rylee Singh oxygen saturation, oximetry 95 % Careyrylee Singh weight E&M 146 [lb_av] Careyrylee Singh height E&M 62 [in_i] Careyrylee Singh blood pressure, cuff size large An deborah Singh ALLERGIES Allergy Name Onset Date Reaction Criticality Status LISINOPRIL cough cough Low Criticality active PENICILLIN High Criticality active ERYTHROMYCIN High Criticality active CLINDAMYCIN High Criticality active HISTORY OF MEDICATION USE Medication Status Instructions Dates Provider Indications Com ments furosemide 20 mg tablet active Take one tablet once daily as needed for leg swelling Kleber Baeza amlodipine 10 mg tablet completed - Destiny Bowles atorvastatin 40 mg tablet completed - Destiny Bowles atorvastatin 40 mg tablet active TAKE 1 TABLET BY MOUTH ONCE DAILY Destiny Bowles dorzolamide-irineo olol (PF) 2-0.5% dropperette active Destiny Bowles tacrolimus 0.03% ointment active Destiny Bowles nystatin-triamc inolone 100,000-0.1 unit/gram-% ointment active Destiny Bowles hydralazine 50 mg tablet active Take 1 tablet by mouth twice a day Jorge Gomez losartan-hydroc hlorothiazide 100-25 mg tablet active TAKE 1 TABLET BY MOUTH ONCE A DAY (STOP LISINOPRIL HCTZ) Kleber Baeza clopidogrel 75 mg tablet active TAKE 1 TABLET BY MOUTH EVERY DAY Pito Reed MD metoprolol succinate 25 mg tablet extended release 24 hr active TAKE 1 TABLET BY MOUTH EVERY DAY AT NIGHT Kelsey Walsh amlodipine 10 mg tablet completed TAKE 1 TABLET BY MOUTH DAILY - Jorge Gomez losartan-hydroc hlorothiazide 100-25 mg tablet completed Take 1 tablet by mouth once a day - Kleber Baeza Tylenol 325 mg tablet completed up to 6 tabs daily - Maryann Tirado ICaps AREDS 4,296 mcg-226 mg-90 mg capsule completed 1 pill once daily - Maryann Tirado One-A-Day Womens Formula 18 mg iron-400 mcg-500 mg tablet completed 1 pill once daily - Maryann Tirado Aspirin Childrens 81 mg tablet,chewable active 1 pill once daily Ellen Hines amlodipine 10 mg tablet completed TAKE 1 TABLET BY MOUTH EVERY DAY - Pito Reed MD clopidogrel 75 mg tablet completed 1 pill once daily - Ellen Hines atorvastatin 40 mg tablet completed TAKE 1 TABLET BY MOUTH EVERY NIGHT - Destiny Bowles metoprolol succinate 25 mg tablet extended release 24 hr completed Take 1 tablet by mouth every night - Kelsey Walsh dorzolamide-irineo olol 22.3-6.8 mg/mL drops completed as needed - Buck Real esomeprazole magnesium 40 mg capsule,delayed release(DR/EC) completed - Ellen Hines nystatin-triamc inolone 100,000-0.1 unit/gram-% ointment completed as needed - Maryann Tirado amlodipine 5 mg tablet completed - Pito Reed MD meloxicam 15 mg tablet completed - Ellen Hines lisinopril-hydr ochlorothiazide 20-12.5 mg tablet completed Take 2 tablet by mouth once a day - Kleber Baeza SOCIAL HISTORY Date Observation Value Provider cigarette use yes Kleber Baeza smoking status Former smoker Kleber Richter i cigarette use yes Kleber Lalazai smoking status Former smoker Kleber Lalaza i cigarette use yes Kleber Lalazai smoking status Former smoker Kleber Lalaza i cigarette use yes P[place] smoking status Former smoker Pito Reed MD cigarette use yes Kleber Richtersamaria smoking status Former smoker Kleber Richter i social history reviewed E&M reviewed - no changes required Pito Reed MD cigarette use yes Carey Signh smoking status Former smoker Carey loomis social history reviewed E&M reviewed - no changes required Kleber Lalazai FUNCTIONAL STATUS Date Observation Value Provider HRA, CV Assess/Plan, Angina (inactive) Management Plan continue current therapy Kleber Lalazai Reason Fall Assessment not done medical c ontraindication Destiny Wilbur HRA, CV Assess/Plan, Angina (inactive) Management Plan continue current therapy Kleber Lalazai HRA, CV Assess/Plan, Angina (inactive) Management Plan continue current therapy Kleber Rowlandmedzai Reason Fall Assessment not done medical c ontraindication Destiny Bowles INSURANCE PROVIDERS Payer name Policy type / Coverage type [place] [employer] party ID [employer] MEDICARE ESA PPO Medicare [id number] ADVANCE DIRECTIVES Name Date DISCUSSED - NO DECISION MADE TREATMENT PLAN Date Name Performer [id number],S, Kleber Rowlandmedza i [id number],S, Kleber Lalaza i [id number],S, Kleber Janettmedza i [id number],S, Kleber Lalaza i [id number],S, Kleber Spikeza i [id number],S, Kleber Richter i [id number],S, Nigel thomas MD [id number],S,U nable to do more than 4 minutes of activitiy due to knee arthritis. WIll need further assessment before surgery Nigel Mcintosh MD Cardiology:This visi t has been a part of the consistent, comprehensive, and ongoing management of the chronic medical condition(s) listed above for the patient. Her updated medication list for this problem includes: Amlodipine 10 Mg Tablet (Amlodipine) Clopidogrel 75 Mg Tablet (Clopidogrel) ..... Take 1 tablet by mouth every day Metoprolol Succinate 25 Mg Tablet Extended Release 24 Hr (Metoprolol succinate) ..... Take 1 tablet by mouth every day at night Aspirin Childrens 81 Mg Tablet,chewable (Aspirin) ..... 1 pill once daily Pito Reed MD Cardiology Pito Reed MD Cardiology: H er updated medication list for this problem includes: Amlodipine 10 Mg Tablet (Amlodipine) Clopidogrel 75 Mg Tablet (Clopidogrel) ..... Take 1 tablet by mouth every day Metoprolol Succinate 25 Mg Tablet Extended Release 24 Hr (Metoprolol succinate) ..... Take 1 tablet by mouth every day at night Aspirin Childrens 81 Mg Tablet,chewable (Aspirin) ..... 1 pill once daily Pito Reed MD Telehealth: T he following medications were removed from the medication list: Amlodipine 10 Mg Tablet (Amlodipine) ..... Take 1 tablet by mouth daily Her updated medication list for this problem includes: Hydralazine 50 Mg Tablet (Hydralazine) ..... Take 1 tablet by mouth twice a day Losartan-hydrochlorothiazide 100-25 Mg Tablet (Losartan-hydrochlorothiazide) ..... Take 1 tablet by mouth once a day (stop lisinopril hctz) Metoprolol Succinate 25 Mg Tablet Extended Release 24 Hr (Metoprolol succinate) ..... Take 1 tablet by mouth every day at night Aspirin Childrens 81 Mg Tablet,chewable (Aspirin) ..... 1 pill once daily Pito Reed MD Telehealth:This visi t has been a part of the consistent, comprehensive, and ongoing management of the chronic medical condition(s) listed above for the patient. Pito Reed MD Telehealth Jorge Patricia Telehealth Jorge Patricia Telehealth [facility] Jorge Resendezai Telehealth Jorge Patricia Cardiology Pito Reed MD Cardiology: H er updated medication list for this problem includes: Metoprolol Succinate 25 Mg Tablet Extended Release 24 Hr (Metoprolol succinate) ..... Take 1 tablet by mouth every day at night Amlodipine 10 Mg Tablet (Amlodipine) ..... Take 1 tablet by mouth daily Losartan-hydrochlorothiazide 100-25 Mg Tablet (Losartan-hydrochlorothiazide) ..... Take 1 tablet by mouth once a day Aspirin Childrens 81 Mg Tablet,chewable (Aspirin) ..... 1 pill once daily Pito Reed MD Cardiology Pito Reed MD Cardiology: H er updated medication list for this problem includes: Clopidogrel 75 Mg Tablet (Clopidogrel) ..... Take 1 tablet by mouth every day Metoprolol Succinate 25 Mg Tablet Extended Release 24 Hr (Metoprolol succinate) ..... Take 1 tablet by mouth every day at night Amlodipine 10 Mg Tablet (Amlodipine) ..... Take 1 tablet by mouth daily Aspirin Childrens 81 Mg Tablet,chewable (Aspirin) ..... 1 pill once daily T his visit has been a part of the consistent, comprehensive, and ongoing management of the chronic medical condition(s) listed above for the patient. Pito Reed MD Cardiology:This visi t has been a part of the consistent, comprehensive, and ongoing management of the chronic medical condition(s) listed above for the patient. Orders: C omplete Echo (71129) S tress Regadenoson (CPT-27727) C BC (INCLUDES DIFF/PLT) (0099) F ERRITIN (457) I JHON AND TOTAL IRON BINDING CAPACITY (9245) P ROBNP, N TERMINAL (76401) C OMPREHENSIVE METABOLIC PANEL, W/EGFR (81037) L IPID PANEL (7600) Her updated medication list for this problem includes: Amlodipine 10 Mg Tablet (Amlodipine) ..... Take 1 tablet by mouth daily Aspirin Childrens 81 Mg Tablet,chewable (Aspirin) ..... 1 pill once daily Metoprolol Succinate 25 Mg Tablet Extended Release 24 Hr (Metoprolol succinate) ..... Take 1 tablet by mouth every night Pito Reed MD Cardiology: O rders: C BC (INCLUDES DIFF/PLT) (6399) F ERRITIN (457) I JHON AND TOTAL IRON BINDING CAPACITY (7573) P ROBNP, N TERMINAL ([id number]) C OMPREHENSIVE METABOLIC PANEL, W/EGFR (93844) L IPID PANEL (7600) Kleber Baeza Cardiology: O rders: C BC (INCLUDES DIFF/PLT) (6399) F ERRITIN (457) I JHON AND TOTAL IRON BINDING CAPACITY (7573) P ROBNP, N TERMINAL (38391) C OMPREHENSIVE METABOLIC PANEL, W/EGFR (27513) L IPID PANEL (7600) Kleber Baeza Cardiology: H er updated medication list for this problem includes: Amlodipine 10 Mg Tablet (Amlodipine) ..... Take 1 tablet by mouth daily Aspirin Childrens 81 Mg Tablet,chewable (Aspirin) ..... 1 pill once daily Metoprolol Succinate 25 Mg Tablet Extended Release 24 Hr (Metoprolol succinate) ..... Take 1 tablet by mouth every night Orders: C BC (INCLUDES DIFF/PLT) (6399) F ERRITIN (457) I JHON AND TOTAL IRON BINDING CAPACITY (7573) P ROBNP, N TERMINAL (53193) C OMPREHENSIVE METABOLIC PANEL, W/EGFR (51655) L IPID PANEL (7600) Kleber Baeza Cardiology: O rders: C omplete Echo (70835) S tress Regadenoson (CPT-20330) C BC (INCLUDES DIFF/PLT) (6399) F ERRITIN (457) I JHON AND TOTAL IRON BINDING CAPACITY (7573) P ROBNP, N TERMINAL (47102) C OMPREHENSIVE METABOLIC PANEL, W/EGFR (62476) L IPID PANEL (7600) Her updated medication list for this problem includes: Amlodipine 10 Mg Tablet (Amlodipine) ..... Take 1 tablet by mouth daily Aspirin Childrens 81 Mg Tablet,chewable (Aspirin) ..... 1 pill once daily Metoprolol Succinate 25 Mg Tablet Extended Release 24 Hr (Metoprolol succinate) ..... Take 1 tablet by mouth every night [facility]: O rders: C omplete Echo (45685) S tress Regadenoson (CPT-74728) C BC (INCLUDES DIFF/PLT) (6399) F ERRITIN (457) I JHON AND TOTAL IRON BINDING CAPACITY (7573) P ROBNP, N TERMINAL (02626) C OMPREHENSIVE METABOLIC PANEL, W/EGFR (95538) L IPID PANEL (7600) Her updated medication list for this problem includes: Amlodipine 10 Mg Tablet (Amlodipine) ..... Take 1 tablet by mouth daily Aspirin Childrens 81 Mg Tablet,chewable (Aspirin) ..... 1 pill once daily Metoprolol Succinate 25 Mg Tablet Extended Release 24 Hr (Metoprolol succinate) ..... Take 1 tablet by mouth every night [facility] Cardiology: O rders: C omplete Echo (55410) S tress Regadenoson (CPT-18453) C BC (INCLUDES DIFF/PLT) (6399) F ERRITIN (457) I JHON AND TOTAL IRON BINDING CAPACITY (7573) P ROBNP, N TERMINAL (06912) C OMPREHENSIVE METABOLIC PANEL, W/EGFR (39220) L IPID PANEL (7600) Her updated medication list for this problem includes: Amlodipine 10 Mg Tablet (Amlodipine) ..... Take 1 tablet by mouth daily Losartan-hydrochlorothiazide 100-25 Mg Tablet (Losartan-hydrochlorothiazide) ..... Take 1 tablet by mouth once a day Aspirin Childrens 81 Mg Tablet,chewable (Aspirin) ..... 1 pill once daily Metoprolol Succinate 25 Mg Tablet Extended Release 24 Hr (Metoprolol succinate) ..... Take 1 tablet by mouth every night [facility] Cardiology: O rders: C omplete Echo (61367) C BC (INCLUDES DIFF/PLT) (6399) F ERRITIN (457) I JHON AND TOTAL IRON BINDING CAPACITY (5237) P ROBNP, N TERMINAL (70989) C OMPREHENSIVE METABOLIC PANEL, W/EGFR (72741) L IPID PANEL (4903) Her updated medication list for this problem includes: Amlodipine 10 Mg Tablet (Amlodipine) ..... Take 1 tablet by mouth daily Losartan-hydrochlorothiazide 100-25 Mg Tablet (Losartan-hydrochlorothiazide) ..... Take 1 tablet by mouth once a day Aspirin Childrens 81 Mg Tablet,chewable (Aspirin) ..... 1 pill once daily Metoprolol Succinate 25 Mg Tablet Extended Release 24 Hr (Metoprolol succinate) ..... Take 1 tablet by mouth every night [facility]: B P today: 130/68 P rior BP: 173/88 (06/09/2023) Her updated medication list for this problem includes: Aspirin Childrens 81 Mg Tablet,chewable (Aspirin) ..... 1 pill once daily Lisinopril-hydrochlorothiazide 20-12.5 Mg Tablet (Lisinopril-hydrochlorothiazide) ..... Take 2 tablet by mouth once a day Metoprolol Succinate 25 Mg Tablet Extended Release 24 Hr (Metoprolol succinate) ..... Take 1 tablet by mouth every night [facility]: H er updated medication list for this problem includes: Aspirin Childrens 81 Mg Tablet,chewable (Aspirin) ..... 1 pill once daily Lisinopril-hydrochlorothiazide 20-12.5 Mg Tablet (Lisinopril-hydrochlorothiazide) ..... Take 2 tablet by mouth once a day Metoprolol Succinate 25 Mg Tablet Extended Release 24 Hr (Metoprolol succinate) ..... Take 1 tablet by mouth every night [facility]: T he following medications were removed from the medication list: Clopidogrel 75 Mg Tablet (Clopidogrel) ..... 1 pill once daily Her updated medication list for this problem includes: Aspirin Childrens 81 Mg Tablet,chewable (Aspirin) ..... 1 pill once daily Lisinopril-hydrochlorothiazide 20-12.5 Mg Tablet (Lisinopril-hydrochlorothiazide) ..... Take 2 tablet by mouth once a day Metoprolol Succinate 25 Mg Tablet Extended Release 24 Hr (Metoprolol succinate) ..... Take 1 tablet by mouth every night Kleber Baeza Cardiology: T he following medications were removed from the medication list: Clopidogrel 75 Mg Tablet (Clopidogrel) ..... 1 pill once daily Her updated medication list for this problem includes: Aspirin Childrens 81 Mg Tablet,chewable (Aspirin) ..... 1 pill once daily Lisinopril-hydrochlorothiazide 20-12.5 Mg Tablet (Lisinopril-hydrochlorothiazide) ..... Take 2 tablet by mouth once a day Metoprolol Succinate 25 Mg Tablet Extended Release 24 Hr (Metoprolol succinate) ..... Take 1 tablet by mouth every night Kleber Baeza Cardiology Pito Reed MD Cardiology Pito Reed MD Cardiology: T he following medications were removed from the medication list: Amlodipine 5 Mg Tablet (Amlodipine) Her updated medication list for this problem includes: Amlodipine 10 Mg Tablet (Amlodipine) ..... Take 1 tablet by mouth every day Metoprolol Succinate 25 Mg Tablet Extended Release 24 Hr (Metoprolol succinate) ..... Take 1 tablet by mouth every night Lisinopril-hydrochlorothiazide 20-12.5 Mg Tablet (Lisinopril-hydrochlorothiazide) Pito Reed MD Cardiology Pito Reed MD Cardiology: T he following medications were removed from the medication list: Amlodipine 5 Mg Tablet (Amlodipine) Her updated medication list for this problem includes: Amlodipine 10 Mg Tablet (Amlodipine) ..... Take 1 tablet by mouth every day Clopidogrel 75 Mg Tablet (Clopidogrel) Metoprolol Succinate 25 Mg Tablet Extended Release 24 Hr (Metoprolol succinate) ..... Take 1 tablet by mouth every night Lisinopril-hydrochlorothiazide 20-12.5 Mg Tablet (Lisinopril-hydrochlorothiazide) Pito Reed MD Cardiology Kleber Ahmedzai Cardiology Kleber Ahmedzai Cardiology Kleber Ahmedzai Cardiology Kleber Ahmedzai Cardiology Kleber Ahmedzai Cardiology Kleber Ahmedzai Cardiology Kleber Ahmedzai Cardiology Kleber Ahmedzai Cardiology Kleber Ahmedzai Cardiology Kleber Ahmedzai Cardiology Kleber Ahmedzai Cardiology Kleber Ahmedzai Cardiology Nigel Mcintosh MD Cardiology:Unable to do more than 4 minutes of activitiy due to knee arthritis. WIll need further assessment before surgery Nigel Mcintosh MD Date Name Venous Doppler Bilat eral LE - Reflux Stress Regadenoson LIPID PANEL COMPREHENSIVE METABO LIC PANEL, W/EGFR PROBNP, N TERMINAL IRON AND TOTAL IRON BINDING CAPACITY FERRITIN CBC (INCLUDES DIFF/P LT) Stress Regadenoson Complete Echo CT Angio Coronaries Complete Echo Stress Regadenoson Complete Echo HISTORY OF PROCEDURES Procedure Date Procedure Name Provider Procedure Notes S tatus Complex e/m visit add on Pito Reed MD completed Complex e/m visit add on Pito Reed MD completed Complex e/m visit add on Pito Reed MD completed Complex e/m visit add on Pito Reed MD completed EKG Pito Reed MD completed
--- OUTSIDE RECORDS SUMMARY | 2024-08-14 16:39 | XMS_ITS | Referral Summary ---
Author Organization [facility] Address [address] [place] [id number] Care Team Providers Care Manager Custom Name Role Phone Monika Cosme MD Primary Care Provider [phone] Pito Reed MD Unavailable Encounters Date Type Department Care Team Description 08/06/2024 3:32 PM CDT - 08/06/2024 11:59 PM CDT Hospital Encounter [facility] [address] [place] [address] Discharge Disposition: Discharge to home or self care 06/26/2024 Telephone [facility] Ophthalmology [address] [place] [phone] Sandhya Gilbert MD 06/11/2024 Telephone [facility] Ophthalmology [address] [place] [phone] Sandhya Gilbert MD 06/06/2024 Telephone [facility] Ophthalmology [address] [place] [phone] Sandhya Gilbert MD Medication Problem 05/22/2024 10:15 AM CONDENSER TESTER Office Visit [facility] Ophthalmology [facility] [place] [address] Sandhya Gilbert MD Primary open angle glaucoma (POAG) of left eye, moderate stage (Primary Dx); At high risk for open angle glaucoma of right eye from Last 3 Months Allergies Active Allergy Reactions Criticality Noted Date Comments Clindamycin Diarrhea,Unknown 05/12/2020 Reaction: DIARRHEA, , , Erythromycin Diarrhea,Unknown 05/12/2020 Reaction: DIARRHEA, , , Lisinopril Rash Medium 12/28/2020 Penicillins Other (See comments),Unknown 04/05/2006 Reaction: Rash, , , , Medications multivitamin capsule Take 1 capsule by mouth daily with lunch ONE A DAY Active nystatin-triamci nolone ointmentIndicati ons:cutaneous candidiasis Apply 1 Application topically nightly Active vit C,I-Xb-xsmzj-lut ein-zeaxan 250-90-40-1 mg capsule Take 1 capsule by mouth 2 (two) times a day AREDS Active acetaminophen (TYLENOL) 500 mg tablet Take 2 tablets (1,000 mg total) by mouth every 6 (six) hours as needed for pain Active metoprolol XL (TOPROL-XL) 25 mg extended release tablet 1 tablet (25 mg total) daily 4 Active atorvastatin (LIPITOR) 40 mg tablet Take 1 tablet (40 mg total) by mouth every evening 4 Active aspirin 81 mg enteric coated tabletIndication s:cardiovascular disease Take 1 tablet (81 mg total) by mouth daily 30 tablet 4 Active amLODIPine (NORVASC) 10 mg tablet Take 1 tablet (10 mg total) by mouth daily 4 Active losartan-hydroch lorothiazide (HYZAAR) 100-25 mg per tablet TAKE 1 TABLET BY MOUTH ONCE A DAY (STOP LISINOPRIL HCTZ) 4 Active benzonatate (TESSALON) 100 mg capsuleIndicatio ns:Cough Take 1 capsule (100 mg total) by mouth 3 (three) times a day as needed for cough 42 capsule 4 Active clopidogreL (PLAVIX) 75 mg tablet clopidogrel 75 mg tablet Active levoFLOXacin (LEVAQUIN) 500 mg tablet TAKE 1 TABLET BY MOUTH EVERY DAY FOR 1 WEEK 4 Active iopqxixg-osni-ZV -calcium-mins (One-A-Day Womens Formula) 18 mg iron-400 mcg-500 mg Ca tablet One-A-Day Womens Formula 18 mg iron-400 mcg-500 mg tablet Active vitamins A,C,D-ukua-bpych r (ICaps AREDS) 4,296 mcg-226 mg-90 mg capsule ICaps AREDS 4,296 mcg-226 mg-90 mg capsule Active latanoprost, PF, (Radhauzrebkeah, PF,) 0.005 % dropperette Administer 1 drop into both eyes nightly 30 each 5 Active dorzolamide-katie lol (COSOPT) 2-0.5 % ophthalmic solution Administer 1 drop into both eyes 2 (two) times a day 60 each 5 Active Active Problems Problem Noted Date Diagnosed Date Allergic conjunctivitis of both eyes 01/10/2024 Age-related macular degeneration 01/10/2024 Assessment & Plan (01/10/2024 3:29 PM CDT): On AREDS 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 01/10/2024 At high risk for open angle glaucoma of right ey e 01/10/2024 Assessment & Plan (05/22/2024 9:15 PM CONDENSER TESTER): NS visual field (VF) changes, no c/w OCT, nl ganglion cell layer (GCL) Intraocular pressure (IOP) 26 off meds Trial of pres free med both eyes (OU) Assessment & Plan (01/10/2024 5:25 PM CDT): NS visual field (VF) changes, no c/w OCT, nl ganglion cell layer (GCL) DC meds and check intraocular pressure (IOP)/ irritation Other diseases of bronchus, not elsewhere classi fied 06/02/2023 Primary open angle glaucoma (POAG) of left eye, moderate stage 06/02/2023 Overview (01/10/2024): Referred from Dr Reinier Medina - Tried on dorzolamide, latanoprost - didn't lower intraocular pressure (IOP) per patient - intraocular pressure (IOP) at evaluation 24/20 - (-) FH glaucoma - Thin Pachy - Open on gonio both eyes (OU) - (-) ELFEGO - (-) steroid Assessment & Plan (05/22/2024 9:15 PM CONDENSER TESTER): S/P SLT OS (03/2024) IOP 28 - no significant improvement, now off meds with resolution of irritation, medicamentosa Trial of Iyuzeh both eyes (OU) q day F/U 6-8 wks with intraocular pressure (IOP) check- Dr. Hills To review report with next steps Assessment & Plan (01/10/2024 5:24 PM CDT): Referred from Dr Jarrod Hills - Tried on dorzolamide, latanoprost - didn't lower intraocular pressure (IOP) per patient - intraocular pressure (IOP) at evaluation 24/20 - (-) FH glaucoma - Thin Pachy - Open on gonio both eyes (OU) - (-) ELFEGO - (-) steroid Has eye pain and redness ~6 mo- 1 yr. Referred for ?difficult intraocular pressure (IOP) control in setting of severe blepharoconjunctivitis Intraocular pressure (IOP) 20/24 on rocklatan No FH Previously tried dorzolamide and latanoprost [place] visual field (HVF) normal right eye (OD) and possible mild s/I arcuate vs artifact left eye (OS) OCT with sup thinning left eye (OS); mild sup thinning right eye (OD) Given age and mild-mod disease, would recommend observation off all drops, including artificial tears with preservative. Consider SLT or durysta If redness doesn't improve with cessation of medications, would recommend cornea eval To call with report in 2-3 wks and then to schedule appropriate F/U with me and other service prn CAD in [place] artery 05/17/2023 CAD (coronary artery disease) 05/08/2023 Shortness of breath 03/13/2023 S/P total knee arthroplasty, left 11/07/2022 Deep vein thrombosis (DVT) 10/26/2022 Lower extremity edema 10/26/2022 Primary osteoarthritis of left knee 10/07/2022 Essential tremor 08/23/2018 Radiculopathy of cervical region 10/11/2017 Chest tightness 12/05/2016 Assessment & Plan (12/05/2016 2:55 PM CDT): She has symptoms recurrent prolonged chest discomfort with out potentiating features. She has no symptoms of typical exertional anterior chest discomfort. This in the setting of a normal coronary angiogram in 2010 and normal ventricular function. I reassured her that I thought it was quite likely her atypical chest discomfort was from interval progression of obstructive coronary disease. Absent development of more typical symptoms that do not think any follow-up ischemic evaluation is warranted at this time. She seems comfortable with that. Edema 12/05/2016 Assessment & Plan (12/05/2016 2:55 PM CDT): Mild, asymptomatic, likely due to peripheral venous insufficiency, potentially worsen by high-dose amlodipine therapy. We discussed conservative measures. I reassured her that this was not due to congestive heart failure. Personal history of primary malignant neoplasm o f breast 09/19/2016 Overview (09/23/2016): Personal history of primary malignant neoplasm of breast Frequency of micturition 03/01/2016 Varicose veins of lower extremity 12/22/2015 Arthralgia of ankle 10/06/2014 Overactive bladder 05/26/2014 Left bundle branch block 05/01/2014 Malignant neoplasm of breast 09/21/2012 Overview (08/05/2016): Breast cancer Diverticulosis of intestine 05/14/2012 Overview (08/06/2016): Diverticulosis Pure hypercholesterolemia 11/14/2007 Hypothyroidism 10/16/2006 Essential hypertension 04/05/2006 Overview (06/02/2023): Hypertension Irritable bowel syndrome 04/05/2006 Overview (06/02/2023): Irritable bowel syndrome Gastro-esophageal reflux disease without esophag itis 04/05/2006 Fibrocystic breast changes 04/05/2006 Social History Tobacco Use Types Packs/Day Years Used Date Smoking Tobacco: Former Cigarettes 1 2012 Smokeless Tobacco: Never Tobacco Cessation:Counseling Given: Not Answered Comments:Smoking History Packs/day: 0.5 Packs quit 2012 Alcohol Use Standard Drinks/Week Comments Yes 1 (1 standard drink = 0.6 oz pur e alcohol) occasional AUDIT-C Answer Date Recorded Q1: How often do you have a drink containing alcohol? Never 05/17/2023 Q2: How many drinks containi ng alcohol do you have on a typical day when you are drinking? Patient does not drink Q3: How often do you have si x or more drinks on one occasion? Never 05/17/2023 Personal Safety Answer Date Recorded Have you ever been in or are you currently in a harmful physical or emotional relationship or is someone making you feel afraid or unsafe? Denies 01/13/2024 Comments No Sex and Gender Information Value Date Recorded Sex Assigned at Not on file Legal Sex Female 2:43 AM CONDENSER TESTER Gender Identity Not on file Sexual Orientation Not on file Last Filed Vital Signs Vital Sign Reading Time Taken Comments Blood Pressure 97/60 01/27/2024 10:23 AM CDT Pulse 66 01/27/2024 10:23 AM CDT Temperature 36.7 C (98 F) 01/27/2024 10:23 AM CDT Respiratory Rate 20 01/27/2024 10:23 AM CDT Oxygen Saturation 98% 01/27/2024 10:23 AM CDT Inhaled Oxygen Concentration - - Weight 63.5 kg (140 lb) 01/27/2024 10:23 AM CDT Height 157.5 cm (5' 2 ) 01/27/2024 10:23 AM CDT Body Mass Index 25.61 01/27/2024 10:23 AM CDT Plan of Treatment Not on file Medical Devices Implanted Type Area Optical Design Engineer Device Identifier Shelf Expiration Date Model / Serial / Lot [employer] Stent Coronary De Rx Cocr Ors Msn [id number] - S0 - [id number] Implanted:Qty: 1 on 05/17/2023 by Donal Ferrara MD at [facility] Stent N/A: Marginal Coronary Artery [employer] 08/12/2023 [id number] / [id number] / [id number] [employer] Simplex P Radiopaque Full Dose Cement Bone Sterile 6191-1-010 - [id number] Implanted:Qty: 1 on 11/07/2022 by John Martin MD at [facility] Left: Knee [employer] 02/28/2025 6191-1-0 10 / / [id number] [employer] Simplex P Radiopaque Full Dose Cement Bone Sterile 6191-1-010 - [id number] Implanted:Qty: 1 on 11/07/2022 by John Martin MD at [facility] Left: Knee [employer] 02/28/2025 6191-1-0 10 / / [id number] [employer] 11mm Posterior Stabilize Knee 4 Insert Tibial All Polyethylene 5535-A-411 - [id number] Implanted:Qty: 1 on 11/07/2022 by John Martin MD at [facility] Left: Knee [employer] [id number] 08/24/2026 5535-A-4 / [id number] [employer] Triathlon Cemented Posterior Stabilize Knee Left 4 Component 5515-F-401 - [id number] Implanted:Qty: 1 on 11/07/2022 by John Martin MD at [facility] Left: Knee [employer] [id number] 06/23/2026 5515-F-4 01 / / [id number] Procedures Procedure Name Priority Date/Time Associated Diagnosis Comments EGFR Routine 08/06/2024 12:14 PM CDT URINALYSIS, MICROSCOPIC ONLY Routine 08/06/2024 12:14 PM CDT DIFFERENTIAL AUTO Routine 08/06/2024 12: 14 PM CDT T3, FREE Routine 08/06/2024 12:14 PM CDT THYROID FUNCTION CASCADE Routine 08/06/2024 12:14 PM CDT LIPID PANEL Routine 08/06/2024 12:14 PM CDT COMPREHENSIVE METABOLIC PANEL Routine 08/06/2024 12:14 PM CDT CBC WITH AUTO DIFFERENTIAL Routine 08/06/2024 12:14 PM CDT HEMOGLOBIN A1C Routine 08/06/2024 12:14 PM CDT URINALYSIS AND REFLEX TO MICROSCOPIC AND CULTURE Routine 08/06/2024 12:14 PM CDT from Last 3 Months Results * eGFR (08/06/2024 12:14 PM CDT) eGFR 87 >=60 mL/min/1. 73 m2 Comment: Interpretive Data Reference Interval Normal >/= 90 [...] Current interpretive data was last reviewed 2021. Blood 08/06/2024 12:1 4 PM CDT 08/06/2024 5:31 PM CDT us Monika Cosme MD LAB BLOOD ORDERABLES Final Res ult [facility] [address] Department of Laboratories [place], [place] [id number] * Differential, auto (08/06/2024 12:14 PM CDT) Neutrophil abs 5.43 1.50 - 6.50 K/cumm Imm gran abs 0.03 0.00 - 0.10 K/cumm [facility] Lymphocyte abs 1.78 0.80 - 3.30 K/cumm [facility] Monocyte abs 0.55 0.20 - 0.80 K/cumm [facility] Eosinophil abs 0.25 0.00 - 0.50 K/cumm [facility] Basophil abs 0.04 0.00 - 0.10 K/cumm [facility] Neutrophil pct 67.2 % [facility] Comment: Interpretive Data Percent cell count reference ranges are not reported, since discordance with absolute values may lead to misinterpretation of CBC data. Current Interpretive Data was last revised on 2017. Imm gran pct 0.4 % [facility] Comment: Interpretive Data Percent cell count reference ranges are not reported, since discordance with absolute values may lead to misinterpretation of CBC data. Current Interpretive Data was last revised on 2017. Lymphocyte pct 22.0 % [facility] Comment: Interpretive Data Percent cell count reference ranges are not reported, since discordance with absolute values may lead to misinterpretation of CBC data. Current Interpretive Data was last revised on 2017. Monocyte pct 6.8 % [facility] Comment: Interpretive Data Percent cell count reference ranges are not reported, since discordance with absolute values may lead to misinterpretation of CBC data. Current Interpretive Data was last revised on 2017. Eosinophil pct 3.1 % [facility] Comment: Interpretive Data Percent cell count reference ranges are not reported, since discordance with absolute values may lead to misinterpretation of CBC data. Current Interpretive Data was last revised on 2017. Basophil pct 0.5 % [facility] Comment: Interpretive Data Percent cell count reference ranges are not reported, since discordance with absolute values may lead to misinterpretation of CBC data. Current Interpretive Data was last revised on 2017. Blood 08/06/2024 12:1 4 PM CDT 08/06/2024 3:45 PM CDT us Monika Cosme MD LAB BLOOD ORDERABLES Final Res ult [facility] [address] [place] [address] * Thyroid Function [place] (08/06/2024 12:14 PM CDT) TSH 0.57 0.30 - 4.20 mcIUnit/mL Blood 08/06/2024 12:1 4 PM CDT 08/06/2024 3:45 PM CDT Monika Cosme MD LAB BLOOD ORDERABLES Final Res ult [facility] [employer] [address] [place] [address] * (ABNORMAL) Urinalysis reflex to microscopic and culture Urine (08/06/2024 12:14 PM CDT) Pathologist [facility] Color, ur Yellow Yellow Clarity, ur Turbid(A) Clear [facility] Specific gravity, ur 1.020 1.003 - 1.030 [facility] pH, urine 6.5 [facility] Comment: Interpretive Data U rine pH is affected by diet, medications, systemic acid-base disturbances, and renal tubular function. pH may affect urinary stone formation. For example, urine pH below 6.0 may help reduce the tendency for calcium phosphate stones and pH greater than 6.0 may reduce the tendency for uric acid stone formation. Source: [facility] Current Interpretive Data was last revised on 2017 Protein, ur ql Negative Negative [facility] Glucose, ur ql Negative Negative [facility] Ketones, ur Negative Negative [facility] Bilirubin, ur Negative Negative [facility] Blood, ur Negative Negative [facility] Urobilinogen, ur <2.0 <2.0 mg/dL [facility] Nitrite, ur Positive(A) Negative [facility] Leukocyte esterase, ur Negative Negative [facility] UA reflex comment Reflex to microscopic UA will be performed. [facility] Urine 08/06/2024 12:1 4 PM CDT 08/06/2024 3:45 PM CDT Monika Cosme MD LAB MICROBIOLOGY - GENERAL ORD ERABLES Final Result [facility] [employer] [address] [place] [address] * (ABNORMAL) CBC with auto differential (08/06/2024 12:14 PM CDT) WBC 8.08 3.80 - 9.90 K/cumm Hgb 13.6 11.9 - 15.5 g/dL [facility] Hct 44.0 35.6 - 45.5 % [facility] Plt 175 150 - 400 K/cumm [facility] MPV 13.4(H) 9.1 - 12.3 fL [facility] RBC 4.76 3.90 - 5.20 M/cumm [facility] MCV 92.4 81.3 - 96.4 fL [facility] MCH 28.6 27.1 - 33.3 pg [facility] MCHC 30.9(L) 32.3 - 35.7 g/dL [facility] RDW CV 15.0(H) 11.1 - 14.9 % [facility] RDW SD 51.2(H) 35.7 - 48.1 fL [facility] NRBC abs 0.00 0.00 - 0.01 K/cumm [facility] Blood 08/06/2024 12:1 4 PM CDT 08/06/2024 3:45 PM CDT us Monika Cosme MD LAB BLOOD ORDERABLES Final Res ult [facility] [address] Department [place] [address] * (ABNORMAL) Urinalysis, microscopic only (08/06/2024 12:14 PM CDT) WBC, ur 0-5 0 - 5 /HPF RBC, ur 0-2 0 - 2 /HPF [facility] Epithelial cells, squamous, ur 1-5 0 - 5 /HPF [facility] Bacteria, ur Trace(A) [facility] Mucous, ur Present(A) [facility] Culture Reflex Comment Reflex conditions for urine culture (WBC >10) not met. [facility] Urine 08/06/2024 12:1 4 PM CDT 08/06/2024 5:14 PM CDT us Monika Cosme MD LAB URINE ORDERABLES Final Res ult Performing Organization Address [facility] Co de Phone Number [facility] [address] [facility] [place] [address] * T3, free (08/06/2024 12:14 PM CDT) Pathologist [facility] Free T3 3.4 2.0 - 4.4 pg/mL Blood 08/06/2024 12:1 4 PM CDT 08/06/2024 3:45 PM CDT us Monika Cosme MD LAB BLOOD ORDERABLES Final Res ult Performing Organization Address [facility] de Phone Number [facility] [address] [facility] [place] [address] * (ABNORMAL) Hemoglobin A1c (08/06/2024 12:14 PM CDT) [facility] Hgb A1C 5.7(H) 4.0 - 5.6 % Estimated Average Glucose 117 mg/dL [facility] Comment: The ADA recommends reporting an estimated Average Glucose (eAG) with all Hemoglobin A1c results using the equation derived from a study of 507 normal and diabetic adults. Minority populations were underrepresented and children were not included. (Diabetes Care 31:7698-2554, 2008). The eAG is not equivalent to a fasting glucose. Blood 08/06/2024 12:1 4 PM CDT 08/06/2024 3:45 PM CDT us Monika Cosme MD LAB BLOOD ORDERABLES Final Res ult Performing Organization Address [facility] Co de Phone Number [facility] [address] [facility] [place] [address] * Lipid panel (08/06/2024 12:14 PM CDT) Cholesterol 192 30 - 199 mg/dL Comment: Interpretive Data Ages < or = 19 [...] revised on 2017. Triglycerides 132 <=149 mg/dL [facility] Comment: Interpretive Data Ages < or = 9 [...] Data was last revised on 2017. HDL 67 >=40 mg/dL [facility] Comment: Interpretive Data Ages < or = 19 [...] Interpretive Data was last revised on 2017. LDL, calculated 102 <=129 mg/dL [facility] Comment: Interpretive Data Ages < or = 19 [...] last revised on 2023. Non-HDL Cholesterol 125 mg/dL [facility] Comment: Interpretive Data Ages < or = 19 [...] Interpretive Data was last revised on 2017. Chol/HDL ratio 3 [facility] Blood 08/06/2024 12:1 4 PM CDT 08/06/2024 3:45 PM CDT us Monika Cosme MD LAB BLOOD ORDERABLES Final Res ult [facility] [address] Department [place] [address] * (ABNORMAL) Comprehensive metabolic panel (08/06/2024 12:14 PM CDT) Sodium 140 135 - 145 mmol/L Potassium, pl 4.0 3.3 - 4.9 mmol/L [facility] Chloride 101 97 - 110 mmol/L [facility] CO2 28 22 - 32 mmol/L [facility] Anion gap 11 2 - 15 mmol/L [facility] BUN 22 6 - 25 mg/dL [facility] Creatinine 0.59(L) 0.60 - 1.10 mg/dL [facility] Glucose 101 70 - 199 mg/dL [facility] Comment: Interpretive Data Fasting glucose >/= 126 mg/dl [...] Current interpretive data was last revised 2022. Calcium 10.8(H) 8.5 - 10.3 mg/dL [facility] Bilirubin, total 0.7 0.1 - 1.2 mg/dL [facility] Protein, pl 7.6 6.5 - 8.5 g/dL [facility] Albumin 4.5 3.5 - 5.0 g/dL [facility] Alk phos 81 40 - 130 Units/L [facility] ALT 17 7 - 45 Units/L [facility] AST 27 10 - 45 Units/L [facility] Blood 08/06/2024 12:1 4 PM CDT 08/06/2024 3:45 PM CDT us Monika Cosme MD LAB BLOOD ORDERABLES Final Res ult [facility] [address] Department [place] [address] from Last 3 Months Insurance [employer] MEDICARE A[employer] MEDICARE [address] [place] [id number] Advance Directives For more information, please contact: [phone] * Full Code (Latest Code Status on File) Date Activated Date Inactivated Comments 05/17/2023 2:41 PM 05/18/2023 5:38 PM * Full Code Date Activated Date Inactivated Comments 11/07/2022 7:43 PM 11/08/2022 5:43 PM * Full Code Date Activated Date Inactivated Comments 06/01/2018 10:08 AM 06/01/2018 5:38 PM Care Teams Manager Custom Relationship Specialty Start Date End Date Monika Cosme MD [address] [address] PCP - General 05/22/20 [place] [address] [address] Consulting Physician Cardiology 05/18/23
--- OUTSIDE RECORDS SUMMARY | 2024-08-14 16:39 | XMS_ITS | Clinical Summary ---
Author Organization [facility] Address [address] [place] [address] Care Team Providers Care Liquor Gallery Operator Name Role Phone Monika Cosme MD Primary Care Provider [phone] Pito Reed MD Unavailable Allergies Active Allergy Reactions Criticality Noted Date Comments Clindamycin Diarrhea,Unknown 05/12/2020 Reaction: DIARRHEA, , , Erythromycin Diarrhea,Unknown 05/12/2020 Reaction: DIARRHEA, , , Lisinopril Rash Medium 12/28/2020 Penicillins Other (See comments),Unknown 04/05/2006 Reaction: Rash, , , , Medications multivitamin capsule Take 1 capsule by mouth daily with lunch ONE A DAY Active nystatin-triamci nolone ointmentIndicati ons:cutaneous candidiasis Apply 1 Application topically nightly Active vit C,T-Pp-zmirm-lut ein-zeaxan 250-90-40-1 mg capsule Take 1 capsule [...] EVERY DAY FOR 1 WEEK 4 Active mxlqgrru-rdwy-MH -calcium-mins (One-A-Day Womens Formula) 18 mg iron-400 mcg-500 mg Ca tablet One-A-Day Womens Formula 18 mg iron-400 mcg-500 mg tablet Active vitamins A,C,I-iddo-qzxln r (ICaps AREDS) 4,296 mcg-226 mg-90 mg capsule ICaps AREDS 4,296 mcg-226 mg-90 mg capsule Active latanoprost, PF, (Alexis, PF,) 0.005 % dropperette Administer 1 drop [...] 01/10/2024 Assessment & Plan (05/22/2024 9:15 PM RAILROAD CONSTRUCTION DIRECTOR): NS visual field (VF) changes, no c/w [...] patient - intraocular pressure (IOP) at evaluation - (-) glaucoma - Thin Pachy - Open on gonio both eyes (OU) - (-) ELFEGO - (-) steroid Assessment & Plan (05/22/2024 9:15 PM RAILROAD CONSTRUCTION DIRECTOR): S/P SLT OS (03/2024) IOP 28 - [...] pressure (IOP) at evaluation 24/20 - (-) glaucoma - Thin Pachy - Open on [...] me and other service prn CAD in [place] artery 05/17/2023 CAD (coronary artery disease) 05/08/2023 [...] esophag itis 04/05/2006 Fibrocystic breast changes 04/05/2006 Encounters Date Type Department Care Team Description 08/06/2024 3:32 PM CDT - 08/06/2024 11:59 PM CDT Hospital Encounter [facility] [address] [place] [address] Discharge Disposition: Discharge to home or self care 06/26/2024 Telephone [facility] Ophthalmology [facility] [place] [address] Sandhya Gilbert MD 06/11/2024 Telephone [facility] Ophthalmology [facility] [place] [address] Sandhya Gilbert MD 06/06/2024 Telephone [facility] Ophthalmology [facility] [place] [address] Sandhya Gilbert MD Medication Problem 05/22/2024 10:15 AM RAILROAD CONSTRUCTION DIRECTOR Office Visit [facility] Ophthalmology [facility] [place] [address] Sandhya Gilbert MD Primary open angle glaucoma (POAG) of left eye, moderate stage (Primary Dx); At high risk for open angle glaucoma of right eye from Last 3 Months Surgical History Surgery Date Site/Laterality Comments HYSTERECTOMY Hysterectomy SECTION section CATARACT EXTRACTION Cataract extraction APPENDECTOMY Appendectomy CHOLECYSTECTOMY Cholecystectomy OTHER SURGICAL HISTORY 05/01/2012 - 04/30/2013 left breast cancer: left lumpectomy and letrozole SECTION Caesarean Section HYSTERECTOMY 05/01/1973 - 04/30/1974 Hysterectomy CHOLECYSTECTOMY 05/01/1999 - 04/30/2000 Cholecystectomy SECTION 05/01/1962 - 04/30/1963 section APPENDECTOMY 05/01/1947 - 04/30/1948 Appendectomy BREAST LUMPECTOMY 05/01/2012 - 04/30/2013 Left Breast cancer Medical History Medical History Date Comments Hypertension Hypertension Malignant neoplasm of female breast (HCC) Cancer, breast Embolism (HCC) Blood clots Deep vein thrombosis (HCC) Colon polyp Diverticulosis History of transfusion Family History Medical History Relation Name Comments Macular degeneration Brother 1 Prostate cancer Brother 1 Cancer -pros argueta; Cancer Brother 2 Cancer; Macular degeneration Brother 2 Prostate cancer Brother 3 Cancer, pros argueta; Hypertension Brother 4 Hypertension; Lung cancer Brother 5 Cancer, lung; Brain Aneurysm Father brain aneurys m; Cancer Father Cancer; Other Father Cancer -testicu lar; Cause of : Cancer -testicular Prostate cancer Father Cancer, pros argueta; Other Father's Brother 1 Cancer - mouth; Esophageal cancer Father's Brother 2 Canc er, esophageal; Cancer Mother Cancer; Heart failure Mother Congestive hea rt failure; Other Mother Pacemaker; Other Other 1 Family history of Descent - [place]; Arthritis Other 2 1st cousin paternal Breast cancer Other 2 1st cousin paternal Cancer, breast; Relation Name Status Comments Brother 1 Brother 2 Brother 3 Brother 4 Brother 5 Father (Age 57) Father's Brother 1 Father's Brother 2 Mother Alive Other 1 Other 2 1st cousin paternal Social History Tobacco Use Types Packs/Day Years Used Date Smoking Tobacco: Former Cigarettes 2012 Smokeless Tobacco: Never Tobacco Cessation:Counseling Given: [...] on file Legal Sex Female 2:43 AM RAILROAD CONSTRUCTION DIRECTOR Gender Identity Not on file Sexual Orientation Not on file Obstetrics History Last Filed Vital Signs Vital Sign Reading [...] 01/27/2024 10:23 AM CDT Plan of Treatment Health Maintenance Due Date Last Done Comments Depression Screening 1935 Hepatitis B Screening 1953 Zoster Vaccine (1 of 2) 1986 DTaP/Tdap/Td Vaccine (1 - Tdap) 05/29/2001 2 Well Visit 65+ 2001 Pneumococcal vaccine 65+ (2 of 2 - PPSV23) 11/05/2015 11/04/2014, 05/13/2010, 05/28/2001 Fall Risk Assessment 05/18/2024 05/18/2023 Influenza Vaccine (Season Ended) 2024 02/09/2022, 01/30/2020, 02/08/2019, Additional history exists Medical Devices Implanted Type Area Automation Controls Specialist Device Identifier Shelf Expiration Date Model / Serial / Lot [employer] Stent Coronary De Rx Cocr Ors Msn [id number] - S0 - [id number] Implanted:Qty: 1 on 05/17/2023 by Donal Ferraar MD at [facility] Stent N/A: Marginal Coronary Artery [employer] 08/12/2023 [id number] / 0 / [id number] [employer] Simplex P Radiopaque Full Dose Cement Bone Sterile 6191-1-010 - [id number] Implanted:Qty: 1 on 11/07/2022 by John Martin MD at [facility] Left: Knee [employer] 02/28/2025 6191-1-0 10 / / [id number] [employer] Simplex P Radiopaque Full Dose Cement Bone Sterile 6191-1-010 - [id number] Implanted:Qty: 1 on 11/07/2022 by John Martin MD at [facility] Left: Knee [employer] 02/28/2025 6191-1-0 10 / / [id number] [employer] 11mm Posterior Stabilize Knee 4 Insert Tibial All Polyethylene 5535-A-411 - [id number] Implanted:Qty: 1 on 11/07/2022 by John Martin MD at [facility] Left: Knee [employer] [id number] 08/24/2026 5535-A-4 11 / / [id number] [employer] Triathlon Cemented Posterior Stabilize Knee Left 4 Component 5515-F-401 - [id number] Implanted:Qty: 1 on 11/07/2022 by John Martin MD at [facility] Left: Knee [employer] [id number] 06/23/2026 5515-F-4 01 / / [id number] Procedures [...] MD LAB BLOOD ORDERABLES Final Res ult [facility] [address] [place] [address] * Differential, auto (08/06/2024 12:14 PM CDT) Neutrophil abs 5.43 1.50 - 6.50 K/cumm Imm gran abs 0.03 0.00 - 0.10 K/cumm [facility] Lymphocyte abs 1.78 0.80 - 3.30 K/cumm [facility] Monocyte abs 0.55 0.20 - 0.80 K/cumm [facility] Eosinophil abs 0.25 0.00 - 0.50 K/cumm [facility] Basophil abs 0.04 0.00 - 0.10 K/cumm [facility] Neutrophil pct 67.2 % [facility] Comment: Interpretive Data Percent cell count reference ranges are not reported, since discordance with absolute values may lead to misinterpretation of CBC data. Current Interpretive Data was last revised on 2017. Imm gran pct 0.4 % [facility] Comment: Interpretive Data Percent cell count reference ranges are not reported, since discordance with absolute values may lead to misinterpretation of CBC data. Current Interpretive Data was last revised on 2017. Lymphocyte pct 22.0 % [facility] Comment: Interpretive Data Percent cell count reference ranges are not reported, since discordance with absolute values may lead to misinterpretation of CBC data. Current Interpretive Data was last revised on 2017. Monocyte pct 6.8 % [facility] Comment: Interpretive Data Percent cell count reference ranges are not reported, since discordance with absolute values may lead to misinterpretation of CBC data. Current Interpretive Data was last revised on 2017. Eosinophil pct 3.1 % [facility] Comment: Interpretive Data Percent cell count reference ranges are not reported, since discordance with absolute values may lead to misinterpretation of CBC data. Current Interpretive Data was last revised on 2017. Basophil pct 0.5 % [facility] Comment: Interpretive Data Percent cell count reference ranges are not reported, since discordance with absolute values may lead to misinterpretation of CBC data. Current Interpretive Data was last revised on 2017. Blood 08/06/2024 12:1 4 PM CDT 08/06/2024 3:45 PM CDT us Monika Cosme MD LAB BLOOD ORDERABLES Final Res ult [facility] [address] [place] [employer] [place] [address] * Thyroid Function [place] (08/06/2024 12:14 PM CDT) TSH 0.57 0.30 - 4.20 mcIUnit/mL Blood 08/06/2024 12:1 4 PM CDT 08/06/2024 3:45 PM CDT us Monika Cosme MD LAB BLOOD ORDERABLES Final Res ult [facility] [address] [place] [address] * (ABNORMAL) Urinalysis reflex to microscopic and culture Urine (08/06/2024 12:14 PM CDT) Color, ur Yellow Yellow Clarity, ur Turbid(A) Clear [facility] Specific gravity, ur 1.020 1.003 - 1.030 [facility] pH, urine 6.5 [facility] Comment: Interpretive Data U rine pH is affected by diet, medications, systemic acid-base disturbances, and renal tubular function. pH may affect urinary stone formation. For example, urine pH below 6.0 may help reduce the tendency for calcium phosphate stones and pH greater than 6.0 may reduce the tendency for uric acid stone formation. Source: [facility] Current Interpretive Data was last revised on 2017 Protein, ur ql Negative Negative [facility] Glucose, ur ql Negative Negative [facility] Ketones, ur Negative Negative [facility] Bilirubin, ur Negative Negative [facility] Blood, ur Negative Negative [facility] Urobilinogen, ur <2.0 <2.0 mg/dL [facility] Nitrite, ur Positive(A) Negative [facility] Leukocyte esterase, ur Negative Negative [facility] UA reflex comment Reflex to microscopic UA will be performed. [facility] Urine 08/06/2024 12:1 4 PM CDT 08/06/2024 3:45 PM CDT Monika Cosme MD LAB MICROBIOLOGY - GENERAL ORD ERABLES Final Result Performing Organization Address [facility] Co de Phone Number [facility] [address] Department [place] [address] * (ABNORMAL) CBC with auto differential (08/06/2024 12:14 PM CDT) WBC 8.08 3.80 - 9.90 K/cumm Hgb 13.6 11.9 - 15.5 g/dL [facility] Hct 44.0 35.6 - 45.5 % [facility] Plt 175 150 - 400 K/cumm [facility] MPV 13.4(H) 9.1 - 12.3 fL [facility] RBC 4.76 3.90 - 5.20 M/cumm [facility] MCV 92.4 81.3 - 96.4 fL [facility] MCH 28.6 27.1 - 33.3 pg [facility] MCHC 30.9(L) 32.3 - 35.7 g/dL [facility] RDW CV 15.0(H) 11.1 - 14.9 % [facility] RDW SD 51.2(H) 35.7 - 48.1 fL [facility] NRBC abs 0.00 0.00 - 0.01 K/cumm [facility] Blood 08/06/2024 12:1 4 PM CDT 08/06/2024 3:45 PM CDT Monika Cosme MD LAB BLOOD ORDERABLES Final Res ult Performing Organization Address [facility]/ZIP Co de Phone Number [facility] [address] Department [place] [address] * (ABNORMAL) Urinalysis, microscopic only (08/06/2024 12:14 PM CDT) WBC, ur 0-5 0 - 5 /HPF RBC, ur 0-2 0 - 2 /HPF [facility] Epithelial cells, squamous, ur 1-5 0 - 5 /HPF [facility] Bacteria, ur Trace(A) [facility] Mucous, ur Present(A) [facility] Culture Reflex Comment Reflex conditions for urine culture (WBC >10) not met. [facility] Urine 08/06/2024 12:1 4 PM CDT 08/06/2024 5:14 PM CDT us Monika Cosme MD LAB URINE ORDERABLES Final Res ult Performing Organization Address [facility] Co de Phone Number [facility] [address] [place] [address] * T3, free (08/06/2024 12:14 PM CDT) Free T3 3.4 2.0 - 4.4 pg/mL Blood 08/06/2024 12:1 4 PM CDT 08/06/2024 3:45 PM CDT Monika Cosme MD LAB BLOOD ORDERABLES Final Res ult Performing Organization Address [facility] de Phone Number [facility] [address] [place] [place] [address] * (ABNORMAL) Hemoglobin A1c (08/06/2024 12:14 PM CDT) Hgb A1C 5.7(H) 4.0 - 5.6 % Estimated Average Glucose 117 mg/dL [facility] Comment: The ADA recommends reporting an estimated Average Glucose (eAG) with all Hemoglobin A1c results using the equation derived from a study of 507 normal and diabetic adults. Minority populations were underrepresented and children were not included. (Diabetes Care 31:2243-8852, 2008). The eAG is not equivalent to a fasting glucose. Blood 08/06/2024 12:1 4 PM CDT 08/06/2024 3:45 PM CDT us Monika Cosme MD LAB BLOOD ORDERABLES Final Res ult Performing Organization Address [facility] Co de Phone Number [facility] [address] Department [place] [address] * Lipid panel (08/06/2024 12:14 PM CDT) [...] revised on 2017. Triglycerides 132 <=149 mg/dL [facility] Comment: Interpretive Data Ages < or = [...] revised on 2017. HDL 67 >=40 mg/dL [facility] Comment: Interpretive Data Ages < or = [...] on 2017. LDL, calculated 102 <=129 mg/dL [facility] Comment: Interpretive Data Ages < or = [...] NCEP Expert Panel. Circulation 2004;110:227 3. Ramo M et al. ZIA Cardiol. 2020 August 29;5(5):540-548. doi: 10.1001/jamacardio.2020.0013 Current Interpretive Data was last revised on 2023. Non-HDL Cholesterol 125 mg/dL [facility] Comment: Interpretive Data Ages < or = [...] last revised on 2017. Chol/HDL ratio 3 [facility] Blood 08/06/2024 12:1 4 PM CDT 08/06/2024 3:45 PM CDT us Monika Cosme MD LAB BLOOD ORDERABLES Final Res ult [facility] [address] Department [place] [address] * (ABNORMAL) Comprehensive metabolic panel (08/06/2024 12:14 PM CDT) Sodium 140 135 - 145 mmol/L Potassium, pl 4.0 3.3 - 4.9 mmol/L [facility] Chloride 101 97 - 110 mmol/L [facility] CO2 28 22 - 32 mmol/L [facility] Anion gap 11 2 - 15 mmol/L [facility] BUN 22 6 - 25 mg/dL [facility] Creatinine 0.59(L) 0.60 - 1.10 mg/dL [facility] Glucose 101 70 - 199 mg/dL [facility] Comment: Interpretive Data Fasting glucose >/= 126 [...] 2022. Calcium 10.8(H) 8.5 - 10.3 mg/dL [facility] Bilirubin, total 0.7 0.1 - 1.2 mg/dL [facility] Protein, pl 7.6 6.5 - 8.5 g/dL [facility] Albumin 4.5 3.5 - 5.0 g/dL [facility] Alk phos 81 40 - 130 Units/L [facility] ALT 17 7 - 45 Units/L [facility] AST 27 10 - 45 Units/L [facility] Blood 08/06/2024 12:1 4 PM CDT 08/06/2024 3:45 PM CDT us Monika Cosme MD LAB BLOOD ORDERABLES Final Res ult [facility] [address] [place] [address] from Last 3 Months Insurance [employer] MED[employer]ARE [address] [id number] Advance Directives For more information, please contact: [phone] * Full Code (Latest Code Status on File) Date Activated Date Inactivated Comments 05/17/2023 2:41 PM 05/18/2023 5:38 PM * Full Code Date Activated Date Inactivated Comments 11/07/2022 7:43 PM 11/08/2022 5:43 PM * Full Code Date Activated Date Inactivated Comments 06/01/2018 10:08 AM 06/01/2018 5:38 PM Care Teams Liquor Gallery Operator Relationship Specialty Start Date End Date Monika Cosme MD [address] [place] [address] PCP - General 05/22/20 [place] [address] [facility] [address] [place] [address] Consulting Physician Cardiology 05/18/23
--- OUTSIDE RECORDS SUMMARY | 2024-08-14 16:39 | XMS_ITS ---
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 Past Treatment and Therapy Plans No past plan information found. Lifetime Dose Tracking * Chemical Lifetime Dose Automatic Entry Manual Entr y Air kerma at the reference point (Ka,r) 284.63 mGy 0 mGy 284.63 mGy
--- OUTSIDE RECORDS SUMMARY | 2024-08-14 16:39 | XMS_ITS ---
Author Organization [facility] aishwarya Address [address] [place] [address] Care Team Providers Care Stock Holder Name Role Phone Monika Cosme Primary Care Provider Ba BARTLETT, Monika Unavailable Unavailable REASON FOR VISIT lab results Encounters Encounter Location Date Provider Diagnosis [facility] [address] [place] [address] 08/08/2024 Monika Cosme Plan Of Treatment Next Appt Details Provider Name:Monika Cosme, 12/13/2024 09:15:00 AM, [address], [place], [address], Provider Name:Monika Cosme, 08/08/2025 09:30:00 AM, [address], [place], [address], Progress Notes * Star TORRES CDOB: [birth year] (89 yo F)Acc No.[id number]:08/08/2024 Patient: Carroll Star HAHN :1935 A ge:89 Y S ex:Female Address:[address] [place], [address] * * Date:
--- OUTSIDE RECORDS SUMMARY | 2024-08-14 16:40 | XMS_ITS ---
Author Organization [facility] OF [facility] Address [address] [address] Care Team Providers Care Primer And Powder Canning Leader Name Role Phone Monika Cosme Primary Care Provider Marquita Ramos Unavailable [phone] Allergies Allergen (clinical drug ingredient) Drug/Non Drug Allergy documented on EMR Reaction Allergy Type Onset Date Status clindamycin Clindamycin Unknown Drug Allergy Act ai erythromycin Erythromycin Unknown Drug Allergy A ctive Penicillin Unknown Drug Allergy Active REASON FOR VISIT High Risk Foot care Medications Medication SIG (Take, Route, Frequency, Duration) Notes Start Date End Date Status Multivitamin Active Losartan Potassium A ctive Tylenol Active Metoprolol Succinate ER 25 MG Oral for 90 Days Active Atorvastatin Calcium 40 MG TAKE 1 TABLET BY MOUTH EVERY NIGHT Oral for 90 Days Active Rocklatan 0.02-0.005 % INSTILL 1 DROP IN TO EACH EYE EVERY NIGHT AT BEDTIME Ophthalmic for 57 Days Active PreserVision AREDS 2 Active Aspirin Low Dose 81 MG TAKE 1 TABLET BY MOUTH EVERY DAY Oral for 30 Days Active amLODIPine Besylate 10 MG Oral for 90 Days Active Vital Signs Height 62 in 02/21/2024 Weight 145 lbs 02/21/2024 BMI 26.52 kg/m2 02/21/2024 Encounters Encounter Location Date Provider Diagnosis [facility] [place] [facility] [address] [address] 02/21/2024 Marquita Leyva Callus of foot L84 ; Atherosclerosis, generalized 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 Assessments Encounter Date Diagnosis (ICD Code) Assessment Notes Treatment Notes Treatment Clinical Notes Section Notes 02/21/2024 Callus of foot (ICD-10 - L84) 02/21/2024 Atherosclerosis, generalized (ICD-10 - I70.91) 02/21/2024 Onychogryphosis [...] Leyva, 10/17/2024 10:00:00 AM, [address], [facility], [place], [address], Procedure Notes * Category Sub-Category Detail Notes PALLIATIVE FOOT CARE: Callus paring: (72386) Le ss than five calluses as noted above reduced with a sterile scalpel blade Nail debride (66142): Debridement of at least six mycotic and/or hypertrophic nails performed:, utilizing manual and electric debridement the affected nails were reduced the nails in length and thickness with curettage of debris from nail margins performed as needed. Nail thickness reduced by:, 10% Progress Notes * Star TORRES CDOB: [birth year] (88 yo F)Acc No.[id number]:02/21/2024 Progress Note Patient: Carroll LUZ MARIARONNELLOMARStar Serena Provider: Simone Leyva DPM :1935 A ge:88 Y S ex:Female Date:02/21/2024 Address:[address] [place], [place] [id number] Pcp:Monika Cosme Subjective: * Chief Complaints: * H igh Risk Foot care * HPI: Amber Garrett assisting with visit:: HPI/Rooming: Amber alan reason for visit:: At Risk Foot Care: [age] y/o female RTO for at risk foot care. Reports no acute issues with nails or calluses today.. * ROS: * MULTI-SYSTEM REVIEW:: Nausea, fever or chillls d enies. A ny change in medications since last visit? d enies. A ny changes in medical history/hospitalizations? d enies. * Medical History: * Surgical History: L T bunionectomy 1999Cardiac stent placed due to blockage 05/17/2023LT knee replacement yst removal 08/2023 * Hospitalization/Major Diagno stic Procedure: * Medications: T akingLosartan Potassium Multivitamin Tylenol [...] with appropriate response to questions. Shoes today: N ew Balance tennis shoe. ? L ower Extremity VASCULAR: : Pulses: D P pulse a bsent b ilateral; PT pulse absent bilateral. Temperature gradient: decreased from proximal to distal, bilateral. Pedal hair: a bsent, bilateral. Venous insufficiency edema: m ild pitting edema, bilateral lower legs and ankles, L>R. Capillary refill at distal toes l ess [...] N o palpable masses or nodules noted. Increased pronation range of motion noted to the rearfoot.. Right lower extremity inspection and palpation: N o palpable masses or nodules noted. Increased pronation range of motion noted to the rearfoot.. Foot deformities: B ilateral:,hammertoes. L ower Extremity NEURO: : General sensation appears intact, bilateral. Muscle tone d iminished, b ilateral. ? Assessment: * Assessment: 1. 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 A therosclerosis, generalized - I70.91 (Primary) 3 . 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 Nail debride (17489): D ebridement of at least six mycotic and/or hypertrophic nails performed:, utilizing manual and electric debridement the affected nails were reduced the nails in length and thickness with curettage of debris from nail margins performed as needed. Nail thickness reduced by:, 10%. * Procedure Codes: 1 1056 TRIM SKIN LESIONS, 2 TO 4, Modifiers: Q8 01683 DEBRIDE NAIL, 6 OR MORE, Modifiers: Q8 , 59 * Preventive Medicine: Screenings: F ALL RISK SCREENING Fall Risk Assessment: O ne fall without injury in the past year * Follow Up: 3 Months,prn * Images: * Sign off status: Completed true * Provider: Simone Leyva DPM Date: Generated for Printi ng/Faxing/eTransmitting on: 0 08/14/2024 04:39 PM CDT History and Physical Notes * HPI (History of Present Illness) Category Sub-Category Detail Notes Category Not es Primary reason for visit: At Risk Foot Care: 88 y/o female RTO for at risk foot care. Reports no acute issues with nails or calluses today. MA assisting with visit: HPI/Rooming: Shamika Examination Category Sub-Category Detail Notes Category Not es General Examination Mental status: Cooperative, Oriented to person, place and time, Mood and affect: normal, Judgement and intellect: normal with appropriate response to questions Shoes today: New Balance tennis s hoe Constitutional / Appearance: No acute di stress , Well nourished, Appropriate personal hygiene Lower Extremity VASCULAR: Venous insufficiency e praveena: mild pitting edema, bilateral lower legs and ankles, L>R Pulses: DP pulse absent bila teral; PT pulse absent bilateral Temperature gradient: decreased from pro ximal to distal, bilateral Pedal hair: absent, bilateral Capillary refill at distal toes less usman n 5 seconds, bilateral Lower Extremity NEURO: General sensation appears intac t, bilateral Muscle tone diminished, bilatera l Lower Extremity MSK: Foot deformities: Bilateral:,jerry ertoes Left lower extremity inspect ion and palpation: No palpable masses or nodules noted. Inc reased pronation range of motion noted to the rearfoot. Right lower extremity inspec tion and palpation: No palpable masses or nodules noted. Inc reased pronation range of motion noted to the rearfoot. Gait slow gait Lower Extremity DERM: Skin: [...]
--- OUTSIDE RECORDS SUMMARY | 2024-08-14 16:40 | XMS_ITS ---
Author Organization [facility] aishwarya Address [address] [place] [address] Care Team Providers Care Creative Services Coordinator Name Role Phone Monika Cosme Primary Care Provider [phone] Ba BARTLETT, Monika Unavailable Unavailable REASON FOR VISIT xray orders Encounters Encounter Location Date Provider Diagnosis [facility] [address] [place] [address] 08/14/2024 Monika Cosme Wrist pain, left M25.532 Assessments Encounter Date Diagnosis (ICD Code) Assessment Notes Treatment Notes Treatment Clinical Notes Section Notes 08/14/2024 Wrist pain, left (ICD-10 - M25.532) Plan Of Treatment Pending Test Test Name Order Date X ray : Wrist, left 08/14/2024 Next Appt Details Provider Name:Monika Cosme, 12/13/2024 09:15:00 AM, [address], [place], [address], Provider Name:Monika Cosme, 08/08/2025 09:30:00 AM, [address], [place], [address], Progress Notes * Star TORRES CDOB: [birth year] (89 yo F)Acc No.[id number]:08/14/2024 Patient: Carroll Star HAHN :1935 A ge:89 Y S ex:Female Address:[address] [place] [address], [place] [address] Subjective: * Chief Complaints: * X ray orders * Medical History: * Surgical History: * Hospitalization/Major Diagno stic Procedure: * Medications: Objective: * Vitals: * Physical Examination: Assessment: * Assessment: 1. W rist pain, left - M25.532 Plan: * Treatment: * Procedure Codes: * true * Date: Generated for Blanca adkins/Adriana/Tin on: 0 08/14/2024 04:39 PM CDT
--- OUTSIDE RECORDS SUMMARY | 2024-08-14 16:40 | XMS_ITS | Encounter Summary ---
Author Organization [facility] Address 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
--- OUTSIDE RECORDS SUMMARY | 2024-08-14 17:11 | XMS_ITS | Encounter Summary ---
Author Organization [facility] Address [address] [facility] [place] [address] Care Team Providers Care Scrap Preparation Supervisor Name Role Phone Monika Cosme MD Primary Care Provider [phone] Encounter Details Date Type Department Care Team (Late Contact Info) Description 09/27/2023 Lab Requisition [facility] - DermPath Lab [address] [place] [address] Lisa Howell MD [address] [place] [address] Social History Tobacco Use Types Packs/Day Years Used Date Smoking Tobacco: Former Cigarettes Q uit: 2013 Smokeless Tobacco: Never Alcohol Use Standard Drinks/Week Comments Yes 4 (1 standard drink = 0.6 oz pur e alcohol) 4 drinks weekly Comments No Sex and Gender Information Value Date Recorded Sex Assigned at Not on file Legal Sex Female 6:15 AM MVA OPERATOR Gender Identity Not on file Sexual Orientation Not on file documented as of this encounter Plan of Treatment Upcoming Encounters Date Type Department Care Team (Late Contact Info) Description 03/18/2025 10:50 AM MVA OPERATOR Office Visit [facility] [address] [place] [address] Bernarda Hyde MD [address] [place] [address] documented as of this encounter Procedures Procedure Name Priority Date/Time Associated Diagnosis Comments DERMATOPATHOLOGY Routine 09/27/2023 3:33 AM CDT documented in this encounter Results * DERMATOPATHOLOGY (09/27/2023 3:33 AM CDT) Case Report Dermatopathology Report Case: [id number] Authorizing Provider: Lisa Howell MD Collected: 09/27/2023 03:33 AM Ordering Location: [facility] - Received: 09/28/2023 10:55 AM [...] The specimen is serially sectioned and a client services representative section is submitted in cassette 1. Jar [...] characteristic determined by the Dermatopathology Laboratory at [facility], directed by Dr. Rae Antonio. These tests need not be, and therefore are not, approved by the [place] Food and Drug Administration. The tests are used for clinical purposes. Billing Codes Specimen Charges Stain Charges 37898 1 1:51 PM CDT DERMATOPATHOLOGY LABORATORY Embedded Images 05/31/202 4 1:51 PM CDT DERMATOPATHOLOGY LABORATORY Pathology/Cytolo gy TISSUE SPECIMEN FROM SKIN / Unknown 09/27/2023 3:33 AM CDT 09/28/2023 10:55 AM CDT us Lisa Howell MD LAB - PATHOLOGY/CYTOLOGY CURTIS EDUARDO Final Result DERMATOPATHOLOGY LABORATORY [facility] - Department of Dermatology [facility] [address] [place] [address], [address] [phone] documented in this encounter Visit Diagnoses Not on filedocumented in this encounter Care Teams Scrap Preparation Supervisor Relationship Specialty Start Date End Date Monika Cosme MD [address] [facility] [address] [place] [address] PCP - General 12/28/20 documented as of this encounter
--- OUTSIDE RECORDS SUMMARY | 2024-08-14 17:11 | XMS_ITS | Clinical Summary ---
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
--- OUTSIDE RECORDS SUMMARY | 2024-08-14 17:11 | XMS_ITS | Encounter Summary ---
Author Organization [facility] Address [address] [place] [address] Care Team Providers Care Hydro Station Operator Name Role Phone Unavailable Primary Care Provider Unavailabl e Encounter Details Date Type Department Care Team (Late st Contact Info) Description 10/06/2018 Abstract SFL CONVERSION [address] [place] [phone] , Generic Conversion, Social History Tobacco Use Types Packs/Day Years Used Date Smoking Tobacco: Never Assessed Comments Unknown Sex and Gender Information Value Date Recorded Sex Assigned at Not on file Legal Sex Female 11:28 PM AIRPLANE FLIGHT ATTENDANT Gender Identity Not on file Sexual Orientation Not on file documented as of this encounter Plan of Treatment Not on file documented as of this encounter Visit Diagnoses Not on filedocumented in this encounter
--- OUTSIDE RECORDS SUMMARY | 2024-08-14 17:11 | XMS_ITS | Referral Summary ---
Author Organization [facility] Address [address] [place] [id number] Care Team Providers Care Calender Machine Operator Helper Name Role Phone Monika Cosme MD Primary Care Provider [phone] Pito Reed MD Unavailable Encounters Date Type Department Care Team Description 08/06/2024 3:32 PM CDT - 08/06/2024 11:59 PM CDT Hospital Encounter [facility] [address] [place] [address] Discharge Disposition: Discharge to home or self care 06/26/2024 Telephone [facility] Ophthalmology [address] [place] [id number] Sandhya Gilbert MD 06/11/2024 Telephone [facility] Ophthalmology [address] [place] [address] Sandhya Gilbert MD 06/06/2024 Telephone [facility] Ophthalmology [address] [place] [address] Sandhya Gilbert MD Medication Problem 05/22/2024 10:15 AM PONY TRIMMER Office Visit [facility] Ophthalmology [facility] [place] [address] Sandhya Gilbert MD Primary open [...] Apply 1 Application topically nightly Active vit C,M-Ng-usjsq-lut ein-zeaxan 250-90-40-1 mg capsule Take 1 capsule [...] EVERY DAY FOR 1 WEEK 4 Active syvlmdod-lcuu-EM -calcium-mins (One-A-Day Womens Formula) 18 mg iron-400 mcg-500 mg Ca tablet One-A-Day Womens Formula 18 mg iron-400 mcg-500 mg tablet Active vitamins A,C,N-dyup-ruvhm r (ICaps AREDS) 4,296 mcg-226 mg-90 mg capsule ICaps AREDS 4,296 mcg-226 mg-90 mg capsule Active latanoprost, PF, (Radhauzrebekah, PF,) 0.005 % dropperette Administer 1 drop [...] 01/10/2024 Assessment & Plan (05/22/2024 9:15 PM PONY TRIMMER): NS visual field (VF) changes, no c/w [...] steroid Assessment & Plan (05/22/2024 9:15 PM PONY TRIMMER): S/P SLT OS (03/2024) IOP 28 - [...] me and other service prn CAD in [place] artery 05/17/2023 CAD (coronary artery disease) 05/08/2023 [...] on file Legal Sex Female 2:43 AM PONY TRIMMER Gender Identity Not on file Sexual Orientation [...] on file Medical Devices Implanted Type Area Signal Maintainer Helper Device Identifier Shelf Expiration Date Model / Serial / Lot [employer] Stent Coronary De Rx Cocr Ors Msn [id number] - S0 - [id number] Implanted:Qty: 1 on 05/17/2023 by Donal Ferrara MD at [facility] Stent N/A: Marginal Coronary Artery [employer] 08/12/2023 [id number] / [id number] [employer] Simplex P Radiopaque Full Dose Cement Bone Sterile 6191-1-010 - [id number] Implanted:Qty: 1 on 11/07/2022 by John Martin MD at [facility] Left: Knee [employer] 02/28/2025 6191-1-0 10 / / [id number] [employer] Simplex P Radiopaque Full Dose Cement Bone Sterile 6191-1-010 - [id number] Implanted:Qty: 1 on 11/07/2022 by John Martin MD at [facility] Left: Knee [employer] 02/28/2025 6191-1-0 10 / / [id number] [employer] 11mm Posterior Stabilize Knee 4 Insert Tibial All Polyethylene 5535-A-411 - [id number] Implanted:Qty: 1 on 11/07/2022 by John Martin MD at [facility] Left: Knee [employer] [id number] 08/24/2026 5535-A-4 / [id number] [employer] Triathlon Cemented Posterior Stabilize Knee Left 4 Component 5515-F-401 - [id number] Implanted:Qty: 1 on 11/07/2022 by John Martin MD at [facility] Left: Knee [employer] [id number] 06/23/2026 5515-F-4 01 / / [id number] Procedures [...] MD LAB BLOOD ORDERABLES Final Res ult [facility] [address] Department of Laboratories [place] [id number] * Differential, auto (08/06/2024 12:14 PM CDT) Neutrophil abs 5.43 1.50 - 6.50 K/cumm Imm gran abs 0.03 0.00 - 0.10 K/cumm [facility] Lymphocyte abs 1.78 0.80 - 3.30 K/cumm [facility] Monocyte abs 0.55 0.20 - 0.80 K/cumm [facility] Eosinophil abs 0.25 0.00 - 0.50 K/cumm [facility] Basophil abs 0.04 0.00 - 0.10 K/cumm [facility] Neutrophil pct 67.2 % [facility] Comment: Interpretive Data Percent cell count reference ranges are not reported, since discordance with absolute values may lead to misinterpretation of CBC data. Current Interpretive Data was last revised on 2017. Imm gran pct 0.4 % [facility] Comment: Interpretive Data Percent cell count reference ranges are not reported, since discordance with absolute values may lead to misinterpretation of CBC data. Current Interpretive Data was last revised on 2017. Lymphocyte pct 22.0 % [facility] Comment: Interpretive Data Percent cell count reference ranges are not reported, since discordance with absolute values may lead to misinterpretation of CBC data. Current Interpretive Data was last revised on 2017. Monocyte pct 6.8 % [facility] Comment: Interpretive Data Percent cell count reference ranges are not reported, since discordance with absolute values may lead to misinterpretation of CBC data. Current Interpretive Data was last revised on 2017. Eosinophil pct 3.1 % [facility] Comment: Interpretive Data Percent cell count reference ranges are not reported, since discordance with absolute values may lead to misinterpretation of CBC data. Current Interpretive Data was last revised on 2017. Basophil pct 0.5 % [facility] Comment: Interpretive Data Percent cell count reference ranges are not reported, since discordance with absolute values may lead to misinterpretation of CBC data. Current Interpretive Data was last revised on 2017. Blood 08/06/2024 12:1 4 PM CDT 08/06/2024 3:45 PM CDT us Monika Cosme MD LAB BLOOD ORDERABLES Final Res ult [facility] [address] Department [place] [address] * Thyroid Function [place] (08/06/2024 12:14 PM CDT) TSH 0.57 0.30 - 4.20 mcIUnit/mL Blood 08/06/2024 12:1 4 PM CDT 08/06/2024 3:45 PM CDT Monika Cosme MD LAB BLOOD ORDERABLES Final Res ult [facility] [address] Department [place] [address] * (ABNORMAL) Urinalysis reflex to microscopic and culture Urine (08/06/2024 12:14 PM CDT) Pathologist [facility] Color, ur Yellow Yellow Clarity, ur Turbid(A) Clear [facility] Specific gravity, ur 1.020 1.003 - 1.030 [facility] pH, urine 6.5 [facility] Comment: Interpretive Data U rine pH is affected by diet, medications, systemic acid-base disturbances, and renal tubular function. pH may affect urinary stone formation. For example, urine pH below 6.0 may help reduce the tendency for calcium phosphate stones and pH greater than 6.0 may reduce the tendency for uric acid stone formation. Source: [facility] Current Interpretive Data was last revised on 2017 Protein, ur ql Negative Negative [facility] Glucose, ur ql Negative Negative [facility] Ketones, ur Negative Negative [facility] Bilirubin, ur Negative Negative [facility] Blood, ur Negative Negative [facility] Urobilinogen, ur <2.0 <2.0 mg/dL [facility] Nitrite, ur Positive(A) Negative [facility] Leukocyte esterase, ur Negative Negative [facility] UA reflex comment Reflex to microscopic UA will be performed. [facility] Urine 08/06/2024 12:1 4 PM CDT 08/06/2024 3:45 PM CDT Monika Cosme MD LAB MICROBIOLOGY - GENERAL ORD ERABLES Final Result [facility] [address] Department [place] [address] * (ABNORMAL) CBC with auto differential (08/06/2024 12:14 PM CDT) WBC 8.08 3.80 - 9.90 K/cumm Hgb 13.6 11.9 - 15.5 g/dL [facility] Hct 44.0 35.6 - 45.5 % [facility] Plt 175 150 - 400 K/cumm [facility] MPV 13.4(H) 9.1 - 12.3 fL [facility] RBC 4.76 3.90 - 5.20 M/cumm [facility] MCV 92.4 81.3 - 96.4 fL [facility] MCH 28.6 27.1 - 33.3 pg [facility] MCHC 30.9(L) 32.3 - 35.7 g/dL [facility] RDW CV 15.0(H) 11.1 - 14.9 % [facility] RDW SD 51.2(H) 35.7 - 48.1 fL [facility] NRBC abs 0.00 0.00 - 0.01 K/cumm [facility] Blood 08/06/2024 12:1 4 PM CDT 08/06/2024 3:45 PM CDT us Monika Cosme MD LAB BLOOD ORDERABLES Final Res ult [facility] [address] Department [place] [address] * (ABNORMAL) Urinalysis, microscopic only (08/06/2024 12:14 PM CDT) WBC, ur 0-5 0 - 5 /HPF RBC, ur 0-2 0 - 2 /HPF [facility] Epithelial cells, squamous, ur 1-5 0 - 5 /HPF [facility] Bacteria, ur Trace(A) [facility] Mucous, ur Present(A) [facility] Culture Reflex Comment Reflex conditions for urine culture (WBC >10) not met. [facility] Urine 08/06/2024 12:1 4 PM CDT 08/06/2024 5:14 PM CDT us Monika Cosme MD LAB URINE ORDERABLES Final Res ult Performing Organization Address [facility] Co de Phone Number [facility] [address] [facility] [place] [address] * T3, free (08/06/2024 12:14 PM CDT) Pathologist [facility] Free T3 3.4 2.0 - 4.4 pg/mL Blood 08/06/2024 12:1 4 PM CDT 08/06/2024 3:45 PM CDT us Monika Cosme MD LAB BLOOD ORDERABLES Final Res ult Performing Organization Address [facility] de Phone Number [facility] [address] [facility] [place] [address] * (ABNORMAL) Hemoglobin A1c (08/06/2024 12:14 PM CDT) [facility] Hgb A1C 5.7(H) 4.0 - 5.6 % Estimated Average Glucose 117 mg/dL [facility] Comment: The ADA recommends reporting an estimated Average Glucose (eAG) with all Hemoglobin A1c results using the equation derived from a study of 507 normal and diabetic adults. Minority populations were underrepresented and children were not included. (Diabetes Care 31:2768-4006, 2008). The eAG is not equivalent to a fasting glucose. Blood 08/06/2024 12:1 4 PM CDT 08/06/2024 3:45 PM CDT us Monika Cosme MD LAB BLOOD ORDERABLES Final Res ult Performing Organization Address [facility] Co de Phone Number [facility] [address] [facility] [place] [address] * Lipid panel (08/06/2024 12:14 PM CDT) [...] revised on 2017. Triglycerides 132 <=149 mg/dL [facility] Comment: Interpretive Data Ages < or = [...] revised on 2017. HDL 67 >=40 mg/dL [facility] Comment: Interpretive Data Ages < or = [...] on 2017. LDL, calculated 102 <=129 mg/dL [facility] Comment: Interpretive Data Ages < or = [...] revised on 2023. Non-HDL Cholesterol 125 mg/dL [facility] Comment: Interpretive Data Ages < or = [...] last revised on 2017. Chol/HDL ratio 3 [facility] Blood 08/06/2024 12:1 4 PM CDT 08/06/2024 3:45 PM CDT us Monika Cosme MD LAB BLOOD ORDERABLES Final Res ult [facility] [address] Department [place] [address] * (ABNORMAL) Comprehensive metabolic panel (08/06/2024 12:14 PM CDT) Sodium 140 135 - 145 mmol/L Potassium, pl 4.0 3.3 - 4.9 mmol/L [facility] Chloride 101 97 - 110 mmol/L [facility] CO2 28 22 - 32 mmol/L [facility] Anion gap 11 2 - 15 mmol/L [facility] BUN 22 6 - 25 mg/dL [facility] Creatinine 0.59(L) 0.60 - 1.10 mg/dL [facility] Glucose 101 70 - 199 mg/dL [facility] Comment: Interpretive Data Fasting glucose >/= 126 [...] 2022. Calcium 10.8(H) 8.5 - 10.3 mg/dL [facility] Bilirubin, total 0.7 0.1 - 1.2 mg/dL [facility] Protein, pl 7.6 6.5 - 8.5 g/dL [facility] Albumin 4.5 3.5 - 5.0 g/dL [facility] Alk phos 81 40 - 130 Units/L [facility] ALT 17 7 - 45 Units/L [facility] AST 27 10 - 45 Units/L [facility] Blood 08/06/2024 12:1 4 PM CDT 08/06/2024 3:45 PM CDT us Monika Cosme MD LAB BLOOD ORDERABLES Final Res ult [facility] [address] Department [place] [address] from Last 3 Months Insurance [employer] MEDICARE A[employer]NA MEDICARE [address] [place] [id number] Advance Directives For more information, please contact: [phone] * Full Code (Latest Code Status on File) Date Activated Date Inactivated Comments 05/17/2023 2:41 PM 05/18/2023 5:38 PM * Full Code Date Activated Date Inactivated Comments 11/07/2022 7:43 PM 11/08/2022 5:43 PM * Full Code Date Activated Date Inactivated Comments 06/01/2018 10:08 AM 06/01/2018 5:38 PM Care Teams Calender Machine Operator Helper Relationship Specialty Start Date End Date Monika Cosme MD [address] [address] PCP - General 05/22/20 [place] [address] [address] Consulting Physician Cardiology 05/18/23
--- OUTSIDE RECORDS SUMMARY | 2024-08-14 17:11 | XMS_ITS | Encounter Summary ---
Author Organization [facility] Address [address] [place] [address] Care Team Providers Care Cold Press Operator Name Role Phone Monika Cosme MD Primary Care Provider [phone] Reason for Visit * Reason Onset Date Comments Fall 02/20/2023 PROBLEM 02/20/2023 Encounter Details Date Type Department Care Team (Late st Contact Info) Description 02/20/2023 Telephone [facility] - DIPPING MACHINE OPERATOR [address] [facility] [address] [place] [address] Sher Otero MD [address] [facility] [address] [place] [address] Fall; PROBLEM Social History Tobacco Use Types Packs/Day Years Used Date Smoking Tobacco: Former Cigarettes Q uit: 2013 Smokeless Tobacco: Never Alcohol Use Standard Drinks/Week Comments Yes 4 (1 standard drink = 0.6 oz pur e alcohol) 4 drinks weekly Comments No Sex and Gender Information Value Date Recorded Sex Assigned at Not on file Legal Sex Female 6:15 AM OUTSOLE LEVELER Gender Identity Not on file Sexual Orientation [...] st Contact Info) Description 03/18/2025 10:50 AM OUTSOLE LEVELER Office Visit [facility] - DIPPING MACHINE OPERATOR [address] [facility], [facility] [address] [place] [address] Bernarda Hyde MD [address] [facility] [address] [place] [address] documented as of this encounter Visit Diagnoses Not on filedocumented in this encounter Care Teams Cold Press Operator Relationship Specialty Start Date End Date Monika Cosme MD [address] [facility] [address] [place] [address] PCP - General 12/28/20 documented as of this encounter
--- OUTSIDE RECORDS SUMMARY | 2024-08-14 17:11 | XMS_ITS ---
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
--- OUTSIDE RECORDS SUMMARY | 2024-08-14 17:11 | XMS_ITS | Clinical Summary ---
Author Organization [facility] Address [address] [facility] [place] [address] Phone Care Team Providers Care Change Management Expert Name Role Phone Monika Cosme MD Primary Care Provider [phone] Allergies Active Allergy Reactions Criticality Noted Date [...] on file Legal Sex Female 5:24 AM INSULATION APPLICATOR Gender Identity Not on file Sexual Orientation [...] 12/24/2014, 11/23/2012 Medical Devices Implanted Type Area Electronics Mechanic Apprentice Device Identifier Shelf Expiration Date Model / Serial / Lot Stent Polaris Ultra [id number] - [id number] Implanted:Qty: 1 on 2020 by Libia Coronel MD at [facility] Stent Left: Ureter [employer] [id number] 04/14/2023 [id number] / / [id number] In Process Of Getting Dental Implants Mouth Insurance RX [employer] RX Member Subscriber Plan / Payer (Ef fective 2020-Present) Name:Star Torres Relation to Subscriber:Self Name:Star Torres Subscriber ID:Not on file Payer ID:Not on file Group ID:[id number] Type:RX Medicare Part D Address: [address] Advance Directives For more information, please contact: [phone] * Full Code (Latest Code Status on File) Date Activated Date Inactivated Comments 2020 8:52 AM 2020 4:44 PM Care Teams Change Management Expert Relationship Specialty Start Date End Date Monika Cosme MD [address] [place] [address] PCP - General Internal Medicine 06/10/20
--- OUTSIDE RECORDS SUMMARY | 2024-08-14 17:11 | XMS_ITS | CONTINUITY OF CARE DOCUMENT ---
Author Name kervin galeana Address Unknown Organization [facility] Office Address [address] [place] [address] Phone [phone] Care Team Providers Care Collection Systems Administrator Name Role Phone Derek BARTLETT, Pito Unavailable YADIRA BARTLETT, MONICA Unavailable [phone] YADIRA BARTLETT, MONICA Unavailable [phone] PROBLEMS Condition Status Date Provider Notes DVT [...] pain--nl stress nuc, 05/2024 active Kleber Baeza CAD-s/p JAMES to OM1 on 05/17/23 active Pito Reed MD -calcified LAD seen on abnormal CTA, CCS 1792, 03/2023 Venous insufficiency active Kleber Baeza ENCOUNTERS Date Type Provider Location Encounter Diag nosis - In-person encounter Office Visit Pito Reed MD [facility] Left bundle branch blockChest pain--nl stress nuc, 05/2024Venous insufficiency - In-person encounter Office Visit Pito Reed MD [facility] Office - In-person encounter Office Visit Pito Reed MD [facility] [facility] - In-person encounter Office Visit Pito Reed MD [facility] [facility] - In-person encounter Office Visit Pito Reed MD [facility] CAD-s/p JAMES to OM1 o n 05/17/23 - In-person encounter Office Visit Pito Reed MD [facility] CAD-s/p JAMES to OM1 o n 05/17/23 - In-person encounter Office Visit Pito Reed MD [facility] OFF[facility] Chest painPreoperati ve cardiovascular evaluationLeft bundle branch blockShortness of breathChest pain--nl stress nuc, 05/2024 - In-person encounter Office Visit Nigel Mcintosh MD [facility] Left bundle branch blockOsteoarthritis, knee, left - In-person encounter Office Visit Pito Reed MD [facility] VITAL SIGNS Date Observation Value Provider [...] lder height E&M 62 [in_i] Maryann [facility] Body Mass Index (Ratio) 26.34 kg/m2 Rodolfo Reed MD blood pressure, diastolic 65 mm[Hg] [facility], systolic 131 mm[Hg] Vip in [facility] pulse rate 63 /min [facility] oxygen saturation, oximetry 94 % [facility] respiratory rate E&M 12 /min Buck M wyanan weight E&M 144 [lb_av] [facility] blood pressure, cuff size regular Vi pin [facility] height E&M 62 [in_i] Buck [facility] Body Mass Index (Ratio) 26.70 kg/m2 Rodolfo [...] up to 6 tabs daily - Maryann Tiraod ICaps AREDS 4,296 mcg-226 mg-90 mg capsule [...] Pito Reed MD cigarette use yes Carey Singh smoking status Former smoker Carey loomis social [...] Payer name Policy type / Coverage type [place] green party ID AETNA MEDICARE ESA PPO Medicare [id number] ADVANCE DIRECTIVES Name Date DISCUSSED - NO DECISION MADE TREATMENT PLAN Date Name Performer [id number],S, Kleber Rowlandmedza i [id number],S, Kleber Lalaza i [id number],S, Kleber Janettmedza i [id number],S, Kleber Lalaza i [id number],S, Kleber Spikeza i [id number],S, Kleber Richter i [id number],S, Nigel thomas MD [id number],S,U nable to do more than 4 minutes [...] Jorge [facility] Jorge [facility] Jorge Res[facility]ai Telehealth Jorge Patricia [...] for the patient. Orders: C omplete Echo (88098) S tress Regadenoson (CPT-81211) C BC (INCLUDES DIFF/PLT) (2299) F ERRITIN (457) I JHON AND TOTAL IRON BINDING CAPACITY (3684) P ROBNP, N TERMINAL (35901) C OMPREHENSIVE METABOLIC PANEL, W/EGFR (23421) L IPID PANEL (7600) Her updated medication [...] BINDING CAPACITY (7573) P ROBNP, N TERMINAL (15043) C OMPREHENSIVE METABOLIC PANEL, W/EGFR (83826) L IPID PANEL (7600) Kleber Baeza Cardiology: O rders: C BC (INCLUDES DIFF/PLT) (6399) F ERRITIN (457) I JHON AND TOTAL IRON BINDING CAPACITY (7573) P ROBNP, N TERMINAL (69473) C OMPREHENSIVE METABOLIC PANEL, W/EGFR (41563) L IPID PANEL (7600) Kleber Baeza Cardiology: [...] BINDING CAPACITY (7573) P ROBNP, N TERMINAL (67986) C OMPREHENSIVE METABOLIC PANEL, W/EGFR (52720) L IPID PANEL (7600) Kleber Baeza Cardiology: O rders: C omplete Echo (10355) S tress Regadenoson (CPT-72272) C BC (INCLUDES DIFF/PLT) (6399) F ERRITIN (457) I JHON AND TOTAL IRON BINDING CAPACITY (7573) P ROBNP, N TERMINAL (23221) C OMPREHENSIVE METABOLIC PANEL, W/EGFR (41136) L IPID PANEL (7600) Her updated medication list for this problem includes: Amlodipine 10 Mg Tablet (Amlodipine) ..... Take 1 tablet by mouth daily Aspirin Childrens 81 Mg Tablet,chewable (Aspirin) ..... 1 pill once daily Metoprolol Succinate 25 Mg Tablet Extended Release 24 Hr (Metoprolol succinate) ..... Take 1 tablet by mouth every night [facility]: O rders: C omplete Echo (95190) S tress Regadenoson (CPT-61075) C BC (INCLUDES DIFF/PLT) (6399) F ERRITIN (457) I JHON AND TOTAL IRON BINDING CAPACITY (7573) P ROBNP, N TERMINAL (73240) C OMPREHENSIVE METABOLIC PANEL, W/EGFR (29407) L IPID PANEL (7600) Her updated medication list for this problem includes: Amlodipine 10 Mg Tablet (Amlodipine) ..... Take 1 tablet by mouth daily Aspirin Childrens 81 Mg Tablet,chewable (Aspirin) ..... 1 pill once daily Metoprolol Succinate 25 Mg Tablet Extended Release 24 Hr (Metoprolol succinate) ..... Take 1 tablet by mouth every night [facility]: O rders: C omplete Echo (38134) S tress Regadenoson (CPT-85176) C BC (INCLUDES DIFF/PLT) (6399) F ERRITIN (457) I JHON AND TOTAL IRON BINDING CAPACITY (7573) P ROBNP, N TERMINAL (86053) C OMPREHENSIVE METABOLIC PANEL, W/EGFR (26978) L IPID PANEL (7600) Her updated medication [...] Take 1 tablet by mouth every night [facility]: O rders: C omplete Echo (18477) C BC (INCLUDES DIFF/PLT) (6399) F ERRITIN (457) I JHON AND TOTAL IRON BINDING CAPACITY (4069) P ROBNP, N TERMINAL (77250) C OMPREHENSIVE METABOLIC PANEL, W/EGFR (39977) L IPID PANEL (6933) Her updated medication list for this problem [...] Take 1 tablet by mouth every night [facility]: B P today: 130/68 P rior BP: 173/88 (06/09/2023) Her updated medication list for this problem includes: Aspirin Childrens 81 Mg Tablet,chewable (Aspirin) ..... 1 pill once daily Lisinopril-hydrochlorothiazide 20-12.5 Mg Tablet (Lisinopril-hydrochlorothiazide) ..... Take 2 tablet by mouth once a day Metoprolol Succinate 25 Mg Tablet Extended Release 24 Hr (Metoprolol succinate) ..... Take 1 tablet by mouth every night [facility]: H er updated medication list for this problem includes: Aspirin Childrens 81 Mg Tablet,chewable (Aspirin) ..... 1 pill once daily Lisinopril-hydrochlorothiazide 20-12.5 Mg Tablet (Lisinopril-hydrochlorothiazide) ..... Take 2 tablet by mouth once a day Metoprolol Succinate 25 Mg Tablet Extended Release 24 Hr (Metoprolol succinate) ..... Take 1 tablet by mouth every night [facility]: T he following medications were [...]
--- OUTSIDE RECORDS SUMMARY | 2024-08-14 17:11 | XMS_ITS | Encounter Summary ---
[facility] Organization [facility] Address [address] [place] [address] Care Team Providers Care Traffic Engineer Name Role Phone Monika Cosme MD Primary Care Provider [phone] Encounter Details Date Type Department Care Team [...] on file Legal Sex Female 5:24 AM TRANSPORT COORDINATOR Gender Identity Not on file Sexual Orientation Not on file documented as of this encounter Plan of Treatment Not on file documented as of this encounter Visit Diagnoses Diagnosis Degeneration of lumbar or lumbosacral intervertebral disc- Primary documented in this encounter Care Teams Traffic Engineer Relationship Specialty Start Date End Date Monika Cosme MD [address] [place] [address] PCP - General Internal Medicine 06/10/20 documented as of this encounter
--- OUTSIDE RECORDS SUMMARY | 2024-08-14 17:11 | XMS_ITS | Encounter Summary ---
Author Organization [facility] Address [address] [place] [address] Care Team Providers Care Valuation Consultant Name Role Phone Jett Rivero MD Primary Care Provider Monika Cosme MD Primary Care Provider [phone] Pito Reed MD Unavailable Encounter Details Date Type Department Care Team (Late st Contact Info) Description 05/21/2020 Telephone [facility] - [facility] [address] [place] [address] Transcribed Order, Provider Social History [...] on file Legal Sex Female 2:43 AM PURSE FRAMER Gender Identity Not on file Sexual Orientation Not on file documented as of this encounter Plan of Treatment Not on file documented as of this encounter Visit Diagnoses Not on filedocumented in this encounter Additional Health Concerns Infection Onset Date Last Indicated Resolved Time COVID: Suspected 05/09/2022 05/09/2022 05/09/2022 10:10 PM PURSE FRAMER COVID: Suspected 07/07/2022 07/07/2022 07/07/2022 12:16 PM PURSE FRAMER COVID19 07/07/2022 07/07/2022 07/17/2022 3:05 AM CDT COVID: Recovered Comment:Added based on recent COVID infection. 07/17/2022 08/05/2022 10/15/2022 3:05 AM C DT Exposure, COVID-19 Comment:Added automatically based on COVID19 lab answers indicating exposure risk 05/05/2023 05/05/2023 05/15/2023 3:[address] COVID: Suspected 05/05/2023 05/05/2023 05/05/2023 11:02 AM PURSE FRAMER COVID: Suspected 05/05/2023 05/05/2023 05/05/2023 3:40 PM PURSE FRAMER COVID: Suspected 07/14/2023 07/14/2023 07/14/2023 9:27 PM CDT COVID: Suspected 01/19/2024 01/19/2024 01/19/2024 7:05 PM CDT COVID19 01/19/2024 01/19/2024 01/29/2024 3:05 AM CDT COVID: Recovered Comment:Added based on recent COVID infection. 01/29/2024 01/29/2024 04/28/2024 3:[address] documented as of this encounter Care Teams Valuation Consultant Relationship Specialty Start Date End Date Jett Rivero MD PCP - General 08/02/16 05/21/20 Monika Cosme MD [address] [place] [address] PCP - General 05/22/20 [place] [address] [place] [address] Consulting Physician Cardiology 05/18/23 documented as of this encounter
--- OUTSIDE RECORDS SUMMARY | 2024-08-14 17:11 | XMS_ITS | Clinical Summary ---
Author Organization [facility] Address [address] [place] [address] Care Team Providers Care Transitions Manager Rn Name Role Phone Monika Cosme MD Primary Care Provider [phone] Pito Reed MD Unavailable Allergies Active Allergy [...] Apply 1 Application topically nightly Active vit C,P-Ms-unjni-lut ein-zeaxan 250-90-40-1 mg capsule Take 1 capsule [...] EVERY DAY FOR 1 WEEK 4 Active kwedmfoz-fzlm-UN -calcium-mins (One-A-Day Womens Formula) 18 mg iron-400 mcg-500 mg Ca tablet One-A-Day Womens Formula 18 mg iron-400 mcg-500 mg tablet Active vitamins A,C,T-veke-hufgj r (ICaps AREDS) 4,296 mcg-226 mg-90 mg [...] 01/10/2024 Assessment & Plan (05/22/2024 9:15 PM SUPPORT ASSISTANT): NS visual field (VF) changes, no c/w [...] steroid Assessment & Plan (05/22/2024 9:15 PM SUPPORT ASSISTANT): S/P SLT OS (03/2024) IOP 28 - [...] me and other service prn CAD in [place] artery 05/17/2023 CAD (coronary artery disease) 05/08/2023 [...] - 08/06/2024 11:59 PM CDT Hospital Encounter [facility] [address] [place] [address] Discharge Disposition: Discharge to home or self care 06/26/2024 Telephone [facility] Ophthalmology [facility] [place] [address] Sandhya Gilbert MD 06/11/2024 Telephone [facility] Ophthalmology [facility] [place] [address] Sandhya Gilbert MD 06/06/2024 Telephone [facility] Ophthalmology [facility] [place] [address] Sandhya Gilbert MD Medication Problem 05/22/2024 10:15 AM SUPPORT ASSISTANT Office Visit [facility] Ophthalmology [facility] [place] [address] Sandhya Gilbert MD Primary open angle glaucoma [...] on file Legal Sex Female 2:43 AM SUPPORT ASSISTANT Gender Identity Not on file Sexual [...] history exists Medical Devices Implanted Type Area Plastics Fabricator Device Identifier Shelf Expiration Date Model / Serial / Lot [employer] Stent Coronary De Rx Cocr Ors Msn [id number] - S0 - [id number] Implanted:Qty: 1 on 05/17/2023 by Donal Ferrara MD at [facility] Stent N/A: Marginal Coronary Artery [employer] 08/12/2023 [id number] / 0 / [id number] [employer] Simplex P Radiopaque Full Dose Cement Bone Sterile 6191-1-010 - [id number] Implanted:Qty: 1 on 11/07/2022 by John Martin MD at [facility] Left: Knee [employer] 02/28/2025 6191-1-0 10 / / [id number] [employer] Simplex P Radiopaque Full Dose Cement Bone Sterile 6191-1-010 - [id number] Implanted:Qty: 1 on 11/07/2022 by John Martin MD at [facility] Left: Knee [employer] 02/28/2025 6191-1-0 10 / / [id number] [employer] 11mm Posterior Stabilize Knee 4 Insert Tibial All Polyethylene 5535-A-411 - [id number] Implanted:Qty: 1 on 11/07/2022 by John Martin MD at [facility] Left: Knee [employer] [id number] 08/24/2026 5535-A-4 11 / / [id number] [employer] Triathlon Cemented Posterior Stabilize Knee Left 4 Component 5515-F-401 - [id number] Implanted:Qty: 1 on 11/07/2022 by John Martin MD at [facility] Left: Knee [employer] [id number] 06/23/2026 5515-F-4 01 / / [id number] Procedures [...] LAB BLOOD ORDERABLES Final Res ult [facility] [address] Department [place] [address] * Differential, auto (08/06/2024 12:14 PM CDT) Neutrophil abs 5.43 1.50 - 6.50 K/cumm Imm gran abs 0.03 0.00 - 0.10 K/cumm [facility] Lymphocyte abs 1.78 0.80 - 3.30 K/cumm [facility] Monocyte abs 0.55 0.20 - 0.80 K/cumm [facility] Eosinophil abs 0.25 0.00 - 0.50 K/cumm [facility] Basophil abs 0.04 0.00 - 0.10 K/cumm [facility] Neutrophil pct 67.2 % [facility] Comment: Interpretive Data Percent cell count reference ranges are not reported, since discordance with absolute values may lead to misinterpretation of CBC data. Current Interpretive Data was last revised on 2017. Imm gran pct 0.4 % [facility] Comment: Interpretive Data Percent cell count reference ranges are not reported, since discordance with absolute values may lead to misinterpretation of CBC data. Current Interpretive Data was last revised on 2017. Lymphocyte pct 22.0 % [facility] Comment: Interpretive Data Percent cell count reference ranges are not reported, since discordance with absolute values may lead to misinterpretation of CBC data. Current Interpretive Data was last revised on 2017. Monocyte pct 6.8 % [facility] Comment: Interpretive Data Percent cell count reference ranges are not reported, since discordance with absolute values may lead to misinterpretation of CBC data. Current Interpretive Data was last revised on 2017. Eosinophil pct 3.1 % [facility] Comment: Interpretive Data Percent cell count reference ranges are not reported, since discordance with absolute values may lead to misinterpretation of CBC data. Current Interpretive Data was last revised on 2017. Basophil pct 0.5 % [facility] Comment: Interpretive Data Percent cell count reference ranges are not reported, since discordance with absolute values may lead to misinterpretation of CBC data. Current Interpretive Data was last revised on 2017. Blood 08/06/2024 12:1 4 PM CDT 08/06/2024 3:45 PM CDT us Monika Cosme MD LAB BLOOD ORDERABLES Final Res ult [facility] [address] Department [place] [employer] [place] [address] * Thyroid Function [place] (08/06/2024 12:14 PM CDT) TSH 0.57 0.30 - 4.20 mcIUnit/mL Blood 08/06/2024 12:1 4 PM CDT 08/06/2024 3:45 PM CDT us Monika Cosme MD LAB BLOOD ORDERABLES Final Res ult [facility] [address] Department [place] [address] * (ABNORMAL) Urinalysis reflex to microscopic and culture Urine (08/06/2024 12:14 PM CDT) Color, ur Yellow Yellow Clarity, ur Turbid(A) Clear [facility] Specific gravity, ur 1.020 1.003 - 1.030 [facility] pH, urine 6.5 [facility] Comment: Interpretive Data U rine pH is affected by diet, medications, systemic acid-base disturbances, and renal tubular function. pH may affect urinary stone formation. For example, urine pH below 6.0 may help reduce the tendency for calcium phosphate stones and pH greater than 6.0 may reduce the tendency for uric acid stone formation. Source: [facility] Current Interpretive Data was last revised on 2017 Protein, ur ql Negative Negative [facility] Glucose, ur ql Negative Negative [facility] Ketones, ur Negative Negative [facility] Bilirubin, ur Negative Negative [facility] Blood, ur Negative Negative [facility] Urobilinogen, ur <2.0 <2.0 mg/dL [facility] Nitrite, ur Positive(A) Negative [facility] Leukocyte esterase, ur Negative Negative [facility] UA reflex comment Reflex to microscopic UA will be performed. [facility] Urine 08/06/2024 12:1 4 PM CDT 08/06/2024 3:45 PM CDT Monika Cosme MD LAB MICROBIOLOGY - GENERAL ORD ERABLES Final Result Performing Organization Address [facility] Co de Phone Number [facility] [address] Department [place] [address] * (ABNORMAL) CBC with auto differential (08/06/2024 12:14 PM CDT) WBC 8.08 3.80 - 9.90 K/cumm Hgb 13.6 11.9 - 15.5 g/dL [facility] Hct 44.0 35.6 - 45.5 % [facility] Plt 175 150 - 400 K/cumm [facility] MPV 13.4(H) 9.1 - 12.3 fL [facility] RBC 4.76 3.90 - 5.20 M/cumm [facility] MCV 92.4 81.3 - 96.4 fL [facility] MCH 28.6 27.1 - 33.3 pg [facility] MCHC 30.9(L) 32.3 - 35.7 g/dL [facility] RDW CV 15.0(H) 11.1 - 14.9 % [facility] RDW SD 51.2(H) 35.7 - 48.1 fL [facility] NRBC abs 0.00 0.00 - 0.01 K/cumm [facility] Blood 08/06/2024 12:1 4 PM CDT 08/06/2024 3:45 PM CDT Monika Cosme MD LAB BLOOD ORDERABLES Final Res ult Performing Organization Address [facility]/ZIP Co de Phone Number [facility] [address] Department [place] [address] * (ABNORMAL) Urinalysis, microscopic only (08/06/2024 12:14 PM CDT) WBC, ur 0-5 0 - 5 /HPF RBC, ur 0-2 0 - 2 /HPF [facility] Epithelial cells, squamous, ur 1-5 0 - 5 /HPF [facility] Bacteria, ur Trace(A) [facility] Mucous, ur Present(A) [facility] Culture Reflex Comment Reflex conditions for urine culture (WBC >10) not met. [facility] Urine 08/06/2024 12:1 4 PM CDT 08/06/2024 5:14 PM CDT us Monika Cosme MD LAB URINE ORDERABLES Final Res ult Performing Organization Address [facility] Co de Phone Number [facility] [address] [employer] [place] [place] [address] * T3, free (08/06/2024 12:14 PM CDT) Free T3 3.4 2.0 - 4.4 pg/mL Blood 08/06/2024 12:1 4 PM CDT 08/06/2024 3:45 PM CDT Monika Cosme MD LAB BLOOD ORDERABLES Final Res ult Performing Organization Address [facility] de Phone Number [facility] [address] [employer] [place] [place] [address] * (ABNORMAL) Hemoglobin A1c (08/06/2024 12:14 PM CDT) Hgb A1C 5.7(H) 4.0 - 5.6 % Estimated Average Glucose 117 mg/dL [facility] Comment: The ADA recommends reporting an estimated Average Glucose (eAG) with all Hemoglobin A1c results using the equation derived from a study of 507 normal and diabetic adults. Minority populations were underrepresented and children were not included. (Diabetes Care 31:4996-7994, 2008). The eAG is not equivalent to a fasting glucose. Blood 08/06/2024 12:1 4 PM CDT 08/06/2024 3:45 PM CDT us Monika Cosme MD LAB BLOOD ORDERABLES Final Res ult Performing Organization Address [facility] Co de Phone Number [facility] [address] Department [place] [address] * Lipid panel (08/06/2024 12:14 PM CDT) [...] revised on 2017. Triglycerides 132 <=149 mg/dL [facility] Comment: Interpretive Data Ages < or = [...] revised on 2017. HDL 67 >=40 mg/dL [facility] Comment: Interpretive Data Ages < or = [...] on 2017. LDL, calculated 102 <=129 mg/dL [facility] Comment: Interpretive Data Ages < or = [...] revised on 2023. Non-HDL Cholesterol 125 mg/dL [facility] Comment: Interpretive Data Ages < or = [...] last revised on 2017. Chol/HDL ratio 3 [facility] Blood 08/06/2024 12:1 4 PM CDT 08/06/2024 3:45 PM CDT us Monika Cosme MD LAB BLOOD ORDERABLES Final Res ult [facility] [address] Department [place] [address] * (ABNORMAL) Comprehensive metabolic panel (08/06/2024 12:14 PM CDT) Sodium 140 135 - 145 mmol/L Potassium, pl 4.0 3.3 - 4.9 mmol/L [facility] Chloride 101 97 - 110 mmol/L [facility] CO2 28 22 - 32 mmol/L [facility] Anion gap 11 2 - 15 mmol/L [facility] BUN 22 6 - 25 mg/dL [facility] Creatinine 0.59(L) 0.60 - 1.10 mg/dL [facility] Glucose 101 70 - 199 mg/dL [facility] Comment: Interpretive Data Fasting glucose >/= 126 [...] 2022. Calcium 10.8(H) 8.5 - 10.3 mg/dL [facility] Bilirubin, total 0.7 0.1 - 1.2 mg/dL [facility] Protein, pl 7.6 6.5 - 8.5 g/dL [facility] Albumin 4.5 3.5 - 5.0 g/dL [facility] Alk phos 81 40 - 130 Units/L [facility] ALT 17 7 - 45 Units/L [facility] AST 27 10 - 45 Units/L [facility] Blood 08/06/2024 12:1 4 PM CDT 08/06/2024 3:45 PM CDT us Monika Cosme MD LAB BLOOD ORDERABLES Final Res ult [facility] [address] Department [place] [address] from Last 3 Months Insurance [employer] MEDICARE [address] [place] [id number] Advance Directives For more information, please contact: [phone] * Full Code (Latest Code Status on File) Date Activated Date Inactivated Comments 05/17/2023 2:41 PM 05/18/2023 5:38 PM * Full Code Date Activated Date Inactivated Comments 11/07/2022 7:43 PM 11/08/2022 5:43 PM * Full Code Date Activated Date Inactivated Comments 06/01/2018 10:08 AM 06/01/2018 5:38 PM Care Teams Transitions Manager Rn Relationship Specialty Start Date End Date Monika Cosme MD [address] [place] [address] PCP - General 05/22/20 [place] [address] [facility] [address] [place] [address] Consulting Physician Cardiology 05/18/23
--- OUTSIDE RECORDS SUMMARY | 2024-08-14 17:11 | XMS_ITS | Clinical Summary ---
Author Organization [facility] Address [address] [place] [address] Care Team Providers Care Forensic Scientist Name Role Phone Monika Cosme MD Primary Care Provider [phone] Source Comments [facility],non-owned Affiliates and Associated Physician Practices is amultiple site organization consisting of ambulatory clinics and hospital sitesin [place], [place], [place] and [place]. This disclosure is being madepursuant to the Care Everywhere program and may not contain all information available regarding this patient. Last updated 18.[facility] Allergies Active Allergy Reactions Criticality Noted Date [...] once daily 4 Active nystatin/triamc inolone (Mycolog) 524652-0.1 UNIT/GM-% ointmentIndicat ions:Erosive lichen planus of vulva [...] on file Legal Sex Female 6:15 AM CONTROL ROOM OPERATOR Gender Identity Not on file Sexual Orientation Not on file Last Filed Vital Signs Vital Sign Reading Time Taken Comments Blood Pressure 130/74 03/18/2024 10:13 AM CONTROL ROOM OPERATOR Pulse - - Temperature - - Respiratory Rate - - Oxygen Saturation - - Inhaled Oxygen Concentration - - Weight 65.1 kg (143 lb 9.6 oz) 03/18/2024 10:13 AM CONTROL ROOM OPERATOR Height 160 cm (5' 3 ) 03/18/2024 10:13 AM CONTROL ROOM OPERATOR Body Mass Index 25.44 03/18/2024 10:13 AM CONTROL ROOM OPERATOR Plan of Treatment Upcoming Encounters Date Type Department Care Team (Late st Contact Info) Description 03/18/2025 10:50 AM CONTROL ROOM OPERATOR Office Visit [facility] [address] [place] [address] Bernarda Hyde MD [address] [facility] [address] [place] [address] Health Maintenance Due Date Last [...] complete this topic Insurance AETNA MEDICARE ADV [facility] AETNA MEDICARE ADV Care Teams Forensic Scientist Relationship Specialty Start Date End Date Monika Cosme MD [address] [facility] [address] [place] [id number] PCP - General 12/28/20
[2024-08-14 17:23] VITALS: BP 149/64; PULSE 61
[2024-08-14 17:24] VITALS: BP 137/73; PULSE 66
[2024-08-14 17:25] VITALS: BP 139/75; PULSE 72
[2024-08-14 17:27] LABS: Basophils Percent Auto 0.1 % (0.2-1.2); Eosinophils Absolute Auto 0.2 K/mm3 (0-0.3); Eosinophils Percent Auto 2.9 % (0-4.4); Hemoglobin 12.6 g/dL (12.0-15.0); Immature Granulocyte Absolute 0.02 K/mm3 (0.00-0.031); Immature Granulocyte Percent A 0.3 % (0-0.5); Lymphocytes Absolute Auto 1.55 K/mm3 (0.9-3.2); Lymphocytes Percent Auto 19.5 % (18.3-44.2); Mean Corpuscular HGB Conc 31.5 g/dl (32-36); Mean Corpuscular Hemoglobin 28.9 pg (26-34); Mean Corpuscular Volume 91.7 fl (80-100); Mean Platelet Volume 12.4 fl (7.4-10.4); Monocytes Absolute Auto 0.7 K/mm3 (0.1-0.6); Monocytes Percent Auto 8.8 % (2.6-8.5); Neutrophils Absolute Auto 5.4 K/mm3 (1.3-6.7); Neutrophils Percent Auto 68.4 % (45.5-73.1); Platelet Count Result 159 k/mm3 (150-375); Red Blood Count 4.36 M/mm3 (4.2-5.4); Red Cell Distribution Width 14.7 % (11.5-14.5); White Blood Count 7.9 K/mm3 (4.5-10.0)
--- NOTE | 2024-08-14 17:28 | ED_ITS ---
HPI - General Adult General Chief complaint: Fall Stated complaint: Fall-injury to right side of face Time Seen by Provider: 08/14/24 16:21 History of Present Illness HPI narrative: Patient 81-year-old female who presents emergency department with chief complaint fall patient reports she has had several falls this week reports that she has had difficulty walking and reports that she the right side of her face after fall this morning the [facility] x- rays her hand knee the showed no evidence of acute fracture family was concerned that she may have other issues calling her to fall and also may have had a intracranial injury or facial fracture Related Data Allergies Allergy/AdvReac Type Severity Reaction Status Date / Time Penicillins Allergy Unknown Unknown Verified 08/14/24 10:08 Review of Systems 2 Review of Systems: A 10 system review of systems was completed on the patient and is negative except for what is stated in the HPI. Nursing and ancillary documentation was reviewed. Exam 2 Narrative: GENERAL: Well-appearing, well-nourished, and in no acute distress. HEAD: Normocephalic, . EYES: PERRLA and EOMI. There is bruising around the right orbit ENT: Nares clear, no rhinorrhea or epistaxis. Mucous membranes moist. NECK: Supple. There is mild tenderness to palpation the midline of the cervical spine CHEST: Clear to auscultation. No respiratory distress. HEART: Regular rate and rhythm. No murmur heard. Normal peripheral pulses. ABDOMEN: Soft, nontender, nondistended, normal active bowel sounds. EXTREMITIES: Normal range of motion. No edema. There is bruising on the dorsum left hand there is tenderness and bruising to the left knee SKIN: Warm, dry, no rash. NEURO: No focal deficits. Alert and oriented x3. PSYCH: Normal mood and affect. Course Vital Signs Vital signs: Vital Signs Temperature 36.7 C 08/14/24 15:48 Pulse Rate 65 08/14/24 15:48 Respiratory Rate 16 08/14/24 15:48 Blood Pressure 127/63 08/14/24 15:48 Pulse Oximetry 97 08/14/24 15:48 Oxygen Delivery Room Air 08/14/24 15:48 Temperature 36.7 C 08/14/24 15:48 Pulse Rate 72 08/14/24 17:25 Respiratory Rate 14 08/14/24 16:26 Blood Pressure 139/75 08/14/24 17:25 Pulse Oximetry 96 08/14/24 16:26 Oxygen Delivery Room Air 08/14/24 15:48 Medical Decision Making [facility] Narrative Medical decision making narrative: Differential diagnosis includes head injury, facial fracture, cervical spine fracture electrolyte abnormality, UTI, acute kidney injury, X-rays were reviewed from the [facility] care a chest x-ray a CT head CT cervical spine facial bones were ordered There is no evidence of acute intracranial hemorrhage, there were old lacunar infarcts in the basal ganglia there were age-related volume loss and small lucent calvarial lesions which could include multiple myeloma There is no evidence of cervical spine fracture or facial fracture Chest x-ray showed no focal infiltrate Laboratory studies were obtained that showed a potassium of 3.0 Urinalysis showed the 11-20 white blood cells in the urine 1+ leukocyte esterase nitrate positive and 4+ bacteriuria Patient was started on potassium replacement and will be started on Keflex Vital Signs Vital Signs: Vital Signs Temperature 36.7 C 08/14/24 15:48 Pulse Rate 65 08/14/24 15:48 Respiratory Rate 16 08/14/24 15:48 Blood Pressure 127/63 08/14/24 15:48 Pulse Oximetry 97 08/14/24 15:48 Oxygen Delivery Room Air 08/14/24 15:48 Temperature 36.7 C 08/14/24 15:48 Pulse Rate 72 08/14/24 17:25 Respiratory Rate 14 08/14/24 16:26 Blood Pressure 139/75 08/14/24 17:25 Pulse Oximetry 96 08/14/24 16:26 Oxygen Delivery Room Air 08/14/24 15:48 Lab Data 08/14/24 17:15 08/14/24 17:15 Labs: Lab Results 08/14/24 08/14/24 Range/Units 17:15 17:35 WBC 7.9 (4.5-10.0) K/mm3 RBC 4.36 (4.2-5.4) M/mm3 Hgb 12.6 (12.0-15.0) g/dL Hct 40.0 (37.0-47.0) % MCV 91.7 (80-100) fl MCH 28.9 (26-34) pg MCHC 31.5 L (32-36) g/dl RDW 14.7 H (11.5-14.5) % Plt Count 159 (150-375) k/mm3 MPV 12.4 H (7.4-10.4) fl Immature Gran % (Auto) 0.3 (0-0.5) % Neut % (Auto) 68.4 (45.5-73.1) % Lymph % (Auto) 19.5 (18.3-44.2) % [place] % (Auto) 8.8 H (2.6-8.5) % Eos % (Auto) 2.9 (0-4.4) % Baso % (Auto) 0.1 L (0.2-1.2) % Lymph # (Auto) 1.55 (0.9-3.2) K/mm3 [place] # (Auto) 0.7 H (0.1-0.6) K/mm3 Eos # (Auto) 0.2 (0-0.3) K/mm3 Baso # (Auto) 0.0 (0.0-0.1) K/mm3 Abs Immat Gran (auto) 0.02 (0.00-0.031) K/mm3 Absolute Neuts (auto) 5.4 (1.3-6.7) K/mm3 Absolute Nucleated RBC 0.000 (0.0-0.012) K/mm3 Nucleated RBC % 0.0 (0.0-0.2) % PT 12.9 (11.1-14.7) Seconds INR 0.9 APTT 28.5 (22.3-36.8) Seconds Sodium 137 (137-145) mmol/L Potassium 3.0 L (3.4-5.0) mmol/L Chloride 101 (98-107) mmol/L Carbon Dioxide 32 H (22-30) mmol/L Anion Gap 4 (4-12) mmol/L BUN 33 H (7-17) mg/dL Creatinine 1.05 H (0.7-1.0) mg/dL Estim Creat Clear Calc Not Reportable Estimated GFR 49 L (59 - ) Glucose 108 (65-110) mg/dL Lactic Acid 1.0 (0.7-2.0) mmol/L Calcium 10.2 (8.4-10.2) mg/dL Magnesium 2.3 (1.6-2.3) mg/dL Total Bilirubin 0.8 (0.2-1.3) mg/dL AST 29 (14-36) U/L ALT 18 (6-35) U/L Alkaline Phosphatase 99 (38-126) U/L Troponin I 0.013 (0.000-0.034) ng/mL Total Protein 8.0 (6.3-8.2) g/dL Albumin 4.1 (3.5-5.1) g/dL Urine Color Yellow (Yellow) Urine Appearance Cloudy H (Clear) Urine pH 5.5 (5.0-9.0) Ur Specific [place] 1.019 (1.001-1.035) Urine Protein Negative (Negative) mg/dL Urine Glucose (UA) Negative (Negative) mg/dL Urine Ketones Trace H (Negative) mg/dL Ur Blood (Man) Negative (Negative) Urine Nitrate Positive H (Negative) Urine Bilirubin Negative (Negative) Urine Urobilinogen 0.2 (<2.0) mg/dL Leukocyte Esterase Rfl 1+ H (Negative) FAVIO/UL Urine RBC 3-5 H (0-2) /hpf Urine WBC 11-20 H (0-3) /hpf Ur Squamous Epith Cells Occasional (Few) /hpf Urine Bacteria 4+ H /hpf Urine Casts 6-10 Hyaline Casts Present (None) /lpf Discharge Plan Discharge Clinical Impression: Contusion of face, Hypokalemia, Acute UTI Fall Qualifiers: Encounter type: initial encounter Qualified Code(s): W19.XXXA - Unspecified fall, initial encounter Patient Disposition: Home Condition: Stable Instructions: Antibiotic Form, Hypokalemia (ED), Head Injury (ED), Contusion in Adults (ED), Urinary Tract Infection in Older Adults (ED) Patient Language: Solomon Islander Prescriptions: New cephalexin 500 mg capsule 500 mg PO Q12H 7 Days Qty: 14 0RF potassium chloride [K-Tab] 20 mEq tablet extended release 20 meq PO BID Qty: 14 0RF Follow-up/Referrals: Tripp Mckay MD [Physician] - UNKNOWN,DOCTOR [Primary Care Provider] - Time of Disposition: 18:13
[2024-08-14 17:40] LABS: INR 0.9; Prothrombin Time 12.9 Seconds (11.1-14.7)
[2024-08-14 17:41] LABS: Partial Thromboplastin Time 28.5 Seconds (22.3-36.8)
[2024-08-14 17:45] LABS: Alanine Aminotransferase 18 U/L (6-35); Albumin Level 4.1 g/dL (3.5-5.1); Alkaline Phosphatase 99 U/L (38-126); Anion Gap 4 mmol/L (4-12); Aspartate Amino Transferase 29 U/L (14-36); Bilirubin,Total 0.8 mg/dL (0.2-1.3); Blood Urea Nitrogen 33 mg/dL (7-17); Calcium 10.2 mg/dL (8.4-10.2); Carbon Dioxide 32 mmol/L (22-30); Chloride 101 mmol/L (98-107); Estimated Glomerular Filt Rate 49; Glucose 108 mg/dL (65-110); Magnesium 2.3 mg/dL (1.6-2.3); Sodium 137 mmol/L (137-145)
[2024-08-14 17:54] LABS: Add Urine Microscopic? YES; Appearance Urine Cloudy (Clear); Bacteria Urine 4+ /hpf; Bilirubin Urine Negative (Negative); Blood Urine Negative (Negative); Color Urine Yellow (Yellow); Glucose Urine UA Negative (Negative); Hyaline Casts Urine Present /lpf; Ketones Urine Trace mg/dL (Negative); Leukocyte Esterase Ur 1+ LEU/UL (Negative); Nitrate Urine Positive (Negative); Protein Urine Negative (Negative); Specific Grav Ur 1.019 (1.001-1.035); Squamous Epithelial Cell Urine Occasional /hpf (Few); Urobilinogen Urine 0.2 mg/dL (<2.0); pH Urine 5.5 (5.0-9.0)
[2024-08-14 17:57] LABS: Troponin I 0.013 ng/mL (0.000-0.034)
[2024-08-14] MEDS: POTASSIUM CHLORIDE 20 MEQ PACKET (FOR LIQUID) 40 MEQ PO (18:10)
[2024-08-14 18:18] VITALS: BP 139/75; PULSE 85; RESP 16; O2SAT 95
== END 2024-08-14 18:30 | disposition home or self-care (01) ==
PROVIDERS: Emergency Provider Emergency Medicine
DX: S05.11XA Contusion of eyeball and orbital tissues, right eye, initial encounter (principal); S60.222A Contusion of left hand, initial encounter; S80.02XA Contusion of left knee, initial encounter; N39.0 Urinary tract infection, site not specified; E87.6 Hypokalemia; W19.XXXA Unspecified fall, initial encounter
CPT/HCPCS: 36415; 70450; 70486; 71045; 72125; 80053; 81001; 83605; 83735; 84484; 85025; 85610; 85730; 87077; 87086; 87147; 87181; 87186; 93005; 99284; A9270

== ENCOUNTER 2024-09-14 09:27 | Emergency (ER) | payer MEDICARE, SELFPAY ==
--- NOTE | ~2024-09-14 | XR_ITS ---
EXAMINATION: XR foot LT min 3V DATE: 09/14/2024 10:56 INDICATION: Pain and bruising at the dorsum of the left foot TECHNIQUE: Dorsoplantar, two oblique and lateral views of the left foot were obtained. COMPARISON: None. FINDINGS: 25[birth year]03[birth year]1930 degree hallux valgus. Alignment is otherwise normal. No fracture. Heterotopic ossicle near the tip of the lateral malleolus likely sequela of chronic anterior talofibular ligament sprain. Mil d polyarticular osteoarthritis at the left ankle, first and second metatarsophalangeal and multiple t arsometatarsal and interphalangeal joints. Mild soft tissue swelling over the dorsum of the midfoot a nd about the anteromedial ankle. No ankle joint effusion. IMPRESSION: 1. No acute osseous abnormality. 2. 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 Reviewed, dictated and finalized at location A. IMPRESSION: 1. No acute osseous abnormality. 2. Hallux valgus and mild polyarticular osteoarthritis at the left ankle, mid a nd forefoot.
[2024-09-14 10:06] VITALS: BP 165/73; PULSE 62; RESP 16; TEMP 37.1; O2SAT 97
--- NOTE | 2024-09-14 10:52 | ED.EXTPRO ---
HPI - Extremity Problem General Chief complaint: Extremity Problem,Nontraumatic Stated complaint: PURPLE TOES ON L FOOT Source: patient Mode of arrival: ambulatory Limitations: no limitations History of Present Illness HPI Narrative: Patient is an 89 year female who presents to the clinic with left foot pain, swelling, and bruising on the third and fourth digit since . Son states that patient fell last Monday, but has not had any bruising or swelling until of this week. Patient denies any new fall or injury. She has not been taking anything over the counter. Related Data Home Medications Medication Instructions Recorded Confirmed Last Taken Type ICaps AREDS 09/14/24 Unknown History aspirin 09/14/24 Unknown History atorvastatin 40 mg tablet mg 09/14/24 Unknown History dorzolamide-timolol (PF) 2 %-0.5 % drp 09/14/24 Unknown History eye drops in a dropperette hydralazine 25 mg tablet mg 09/14/24 Unknown History losartan 100 tablet 09/14/24 Unknown History mg-hydrochlorothiazide 25 mg tablet metoprolol succinate 25 mg mg PO 09/14/24 Unknown History tablet,extended release 24 hr Allergies Allergy/AdvReac Type Severity Reaction Status Date / Time Penicillins Allergy Unknown Unknown Verified 09/14/24 10:00 Review of Systems Review of Systems: CONSTITUTIONAL: Denies body aches, fever, chills EYES: Denies visual changes ENT: Denies rhinorrhea, congestion CARDIOVASCULAR: Denies chest pain, palpitations, or edema. RESPIRATORY: Denies cough or dyspnea. SKIN: Denies rash, itching, or wounds. MUSCULOSKELETAL: Denies back pain, joint pain, or myalgia. Reports Left foot pain, swelling, bruising to third and fourth digit. NEUROLOGIC: Denies headache, numbness, tingling, or weakness. All systems reviewed & are unremarkable except as noted in HPI and below PMFSH Comments At time of signature, I have reviewed and agree with nursing past medical, surgical, social and family history unless otherwise noted. Please see nursing chart for further information. There is no relevant family history pertinent to the presenting complaint. Exam Narrative: MUSCULOSKELETAL EXAM GENERAL: Well-appearing, well-nourished, and in no acute distress. HEAD: Normocephalic, atraumatic. NECK: Supple. CHEST: Speaks in full sentences. No respiratory distress. HEART: Regular rate and rhythm. Normal and equal peripheral pulses. EXTREMITIES: Left foot has normal strength and sensation, normal range of motion with flexion/extension, but endorses pain with movement. Erythema to dorsal noted. Edema noted to left foot and ankle. Ecchymosis noted to left foot. No point tenderness. No open wounds, skin tenting, or obvious deformity; alignment normal, pulse palpable and equal bilaterally, skin warm, dry, pink. Capillary refill less than 3 seconds. Distal sensation intact. SKIN: Warm, dry, no rash. NEURO: Alert and oriented x3. PSYCH: Normal mood and affect Course Course Level of Care: Express Care Visit Vital Signs Vital signs: Vital Signs Temperature 98.7 F 09/14/24 10:06 Pulse Rate 62 09/14/24 10:06 Respiratory Rate 16 09/14/24 10:06 Blood Pressure 165/73 H 09/14/24 10:06 Pulse Oximetry 97 09/14/24 10:06 Oxygen Delivery Room Air 09/14/24 10:06 Temperature 98.7 F 09/14/24 10:06 Pulse Rate 62 09/14/24 10:06 Respiratory Rate 16 09/14/24 10:06 Blood Pressure 165/73 H 09/14/24 10:06 Pulse Oximetry 97 09/14/24 10:06 Oxygen Delivery Room Air 09/14/24 10:06 Reviewed. MDM - Extremity (Nontraumatic) MDM Narrative Medical decision making narrative: Discussed physical exam findings and xray. Geovani wrap applied for support. Advised supportive measures and signs/symptoms to go to the ER. Pt is appropriate for outpatient treatment and follow up. Imaging Data Radiologist's impression: ITS Impressions Foot X-Ray 09/14/24 11:01 IMPRESSION: 1. No acute osseous abnormality. 2. 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 Critical Care Time Critical Care Time Critical Care Time: No Discharge Plan Discharge Clinical Impression: Acute foot pain Qualifiers: Laterality: left Qualified Code(s): M79.672 - Pain in left foot Patient Disposition: Home Condition: Stable Instructions: Foot Sprain (ED) Additional Instructions: Xray showed no fracture. Minimize activities that aggravate the condition The RICE protocol. Follow the RICE protocol as soon as possible after your injury: Rest your ankle by not walking on it. Ice should be immediately applied to keep the swelling down. It can be used for 20 to 30 minutes, three or four times daily. Do not apply ice directly to your skin. Compression dressings, bandages or geovani-wraps will immobilize and support your injured ankle. Elevate your ankle above the level of your heart as often as possible during the first 48 hours. Please schedule a follow-up visit with your personal physician for further evaluation and treatment within 1week If your symptoms persist, change or worsen significantly before you can contact your personal physician then please, without delay, go to the emergency department for further evaluation. Patient Language: Taiwanese Prescriptions: No Action atorvastatin 40 mg tablet hydralazine 25 mg tablet losartan-hydrochlorothiazide 100-25 mg tablet metoprolol succinate 25 mg tablet extended release 24 hr PO dorzolamide-timolol (PF) 2-0.5 % dropperette ICaps AREDS aspirin Follow-up/Referrals: Ba,Monika [Other] Time of Disposition: 11:24
== END 2024-09-14 11:44 | disposition home or self-care (01) ==
DX: M79.672 Pain in left foot (principal); I10 Essential (primary) hypertension; H40.9 Unspecified glaucoma; Z95.5 Presence of coronary angioplasty implant and graft; Z96.652 Presence of left artificial knee joint
CPT/HCPCS: 73630; 99213; G0463

== ENCOUNTER 2025-01-25 09:12 | Emergency (ER) | payer MEDICARE, SELFPAY ==
[2025-01-25 09:13] VITALS: BP 159/69; PULSE 59; RESP 18; TEMP 36.3; O2SAT 100
--- NOTE | 2025-01-25 09:26 | ECG_ITS ---
Test Date: 2025-01-25 09:32:19 Measurements Intervals [place] Rate: 57 P: 64 VA: 219 QRS: -38 QRSD: 156 T: 72 QT: 472 QTc: 462 Interpretive Statements SINUS BRADYCARDIA WITH FIRST DEGREE AV BLOCK LEFT BUNDLE BRANCH BLOCK Electronically Signed On 01-26-2025 20:40:01 CDT by Anderson Andrade D.O
--- NOTE | 2025-01-25 10:11 | PC.NURSE ---
Due to the length and severity of the nosebleed, the pt has blood on both upper and lower extremeties as well as on her face. I used gauze and saline to clean the blood off of the pt. Provider now at bedside assessing the pt.
--- NOTE | 2025-01-25 10:30 | PC.NURSE ---
Addendum entered by Bailey Desir RN LICPEND 01/25/25 10:34: Amount of blood is scant. Most likely from her previous bleed now that the nose clamp was removed. Pt was given some water to rinse out her mouth. Original Note: Pts nose began bleeding again. Only small amount of blood present. Pt was given tissues to control it.
--- NOTE | 2025-01-25 10:42 | PC.NURSE ---
Waiting to receive blood pressure medications from pharmacy.
[2025-01-25 10:43] VITALS: BP 156/80; PULSE 59; RESP 14; O2SAT 99
--- NOTE | 2025-01-25 10:44 | ED.EPISTAXIS ---
HPI - Epistaxis General Chief complaint: Epistaxis Stated complaint: epistaxis Time Seen by Provider: 01/25/25 10:03 Source: patient, RN notes reviewed and old records reviewed Mode of arrival: ambulatory Limitations: no limitations History of Present Illness HPI Narrative: This is an 89 year old female who presents for evaluation of epistaxis. She states her nose started bleeding at 7 am this morning. She thinks she may have blown her nose and scratched her nose prior to onset. She reports bleeding and clots for 2 hours and then she called EMS. EMS placed a nasal clamp on her nose and she stopped bleeding for the past 1 hour. She reports at onset she did feel bleeding down her throat but that has subsided. She states her blood pressure is high but she has not taken her medications this morning. She states she started taking plavix months ago but she stopped because her nose started bleeding. complaint: epistaxis Related Data Home Medications ?Medication ?Instructions ?Recorded ?Confirmed ?Last Taken ?Type ICaps AREDS .Route 09/14/24 Unknown History atorvastatin 40 mg tablet 40 mg PO QPM 09/14/24 01/25/25 01/25/25 History dorzolamide-timolol (PF) 2 %-0.5 % 1 drp EACH EYE Q12H 09/14/24 01/25/25 01/25/25 History eye drops in a dropperette hydralazine 25 mg tablet 25 mg PO Q12H 09/14/24 01/25/25 01/25/25 History losartan 100 1 tablet PO 09/14/24 Unknown History mg-hydrochlorothiazide 25 mg tablet metoprolol succinate 25 mg 25 mg PO Q12H 09/14/24 01/25/25 Unknown History tablet,extended release 24 hr Allergies Allergy/AdvReac Type Severity Reaction Status Date / Time Penicillins Allergy Unknown Unknown Verified 01/25/25 09:35 clindamycin AdvReac Mild Diarrhea Verified 01/25/25 09:35 erythromycin base AdvReac Mild Diarrhea Verified 01/25/25 09:35 PMF Past Medical History Medical History (Updated 01/25/25 @ 12:02 by Cyn Cabrera MD) Hyperlipidemia Hypertension Social History Social History (Updated 01/25/25 @ 10:49 by Cyn Cabrera MD) Smoking status: Never smoker Exam Const: General: no acute distress and alert Nutritional Appearance: well nourished Orientation/consciousness: patient oriented x3 Limitations: no limitations HENMT: Head: normal to inspection Face and sinus: normal facial exam Mouth: Yes moist mucous membranes Teeth and gingiva: dentition normal Throat: posterior oropharynx normal and uvula midline Other: old blood in posterior pharynx and around lips, no active epistaxis Eyes: Pupils: Equal, round and reactive pupils present EOM: EOMs intact bilaterally Resp: Effort & Inspection: normal respiratory effort Skin: General skin exam: normal color Rashes: no rashes Wounds: no wounds Neuro: General: patient oriented x3, moves all extremities and CN's II-XI intact bilaterally Psych: Mental Status: mental status grossly normal Affect: normal affect Attitude: cooperative Course Reevaluation(s) Reevaluation #1: Patient's nose stopped bleeding on arrival. She was given afrin. I Discussed return precautions and follow up with ENT. She was given her lostartan and hydralazine in ER as she had not taken this morning. Date: 01/25/25 Time: 11:30 Vital Signs Vital signs: Vital Signs Temperature 97.4 F L 01/25/25 09:13 Pulse Rate 59 L 01/25/25 09:13 Respiratory Rate 18 01/25/25 09:13 Blood Pressure 159/69 H 01/25/25 09:13 Pulse Oximetry 100 01/25/25 09:13 Temperature 97.4 F L 01/25/25 09:13 Pulse Rate 65 01/25/25 12:45 Respiratory Rate 14 01/25/25 12:45 Blood Pressure 145/96 H 01/25/25 12:45 Pulse Oximetry 96 01/25/25 12:45 MDM - Epistaxis Differential Diagnosis Differential diagnosis: Likely anterior epistaxis and posterior epistaxis Discharge Plan Discharge Clinical Impression: Epistaxis Patient Disposition: Home Condition: Stable Instructions: Antibiotic Form, Nosebleed (ED) Additional Instructions: If your nose restarts bleeding apply pressure with nasal clamp. If you are unable to get it stop bleeding after 15 minutes return to ER. Follow up with ENT, apply saline nasal spray daily Patient Language: Korean Prescriptions: New Saline Mist 0.65 % aerosol,spray 2 spray intranasal QID PRN (Reason: dry nasal passages) Qty: 44 0RF No Action atorvastatin 40 mg tablet 40 mg PO QPM hydralazine 25 mg tablet 25 mg PO Q12H losartan-hydrochlorothiazide 100-25 mg tablet 1 tablet PO metoprolol succinate 25 mg tablet extended release 24 hr 25 mg PO Q12H dorzolamide-timolol (PF) 2-0.5 % dropperette 1 drp EACH EYE Q12H ICaps AREDS .Route Follow-up/Referrals: Ba,Monika [Other] Herman Vicente MD [Physician, Ear, Nose, Throat]
--- NOTE | 2025-01-25 11:07 | PC.NURSE ---
This RN spoke with pharmacist Daniela for update. Pharmacist states she is tubing medications to ER.
[2025-01-25 11:32] VITALS: BP 163/67; PULSE 61; RESP 14; O2SAT 97
[2025-01-25] MEDS: LOSARTAN POTASSIUM 100 MG TABLET PO (11:34)
[2025-01-25] MEDS: OXYMETAZOLINE HCL 0.05% NAS 15 ML BTL (*BKC) 1 SPRAY NASAL (11:34)
[2025-01-25 12:25] VITALS: BP 149/68; PULSE 62; RESP 14; O2SAT 97
[2025-01-25 12:45] VITALS: BP 145/96; PULSE 65; RESP 14; O2SAT 96
== END 2025-01-25 13:10 | disposition home or self-care (01) ==
PROVIDERS: Emergency Provider General Practice
DX: R04.0 Epistaxis (principal)
CPT/HCPCS: 93005; 99283; A9270

== ENCOUNTER 2025-02-28 10:52 | Emergency (ER) | payer MEDICARE, SELFPAY ==
--- NOTE | ~2025-02-28 | XR_ITS ---
EXAMINATION: XR knee LT min 4V, 02/28/2025 11:28 CDT HISTORY: fall- knee contusion/pain hx of arthroplasty., COMPARISON: No comparisons available. Findings: No acute fracture or malalignment. Arthroplasty intact Soft tissues unremarkable. Impression: No acute fracture or malalignment. Reviewed, dictated and finalized at location P. Impression: No acute fracture or malalignment.
--- NOTE | 2025-02-28 10:58 | ED.FALL ---
HPI - Fall General Chief Complaint: Fall Stated Complaint: R ARM/L KNEE INJURY Time Seen by Provider: 02/28/25 10:58 Source: patient Mode of arrival: ambulatory Limitations: no limitations History of Present Illness HPI Narrative: Star is an 89 year old female patient presenting to the clinic today with c/o right arm skin tear and left knee pain after a fall last night. She reports she tripped over her walker and her arm got caught on the walker and she landed on the left knee. Has bruising and swelling to the left anterior knee and a skin tear that continues to bleed to the right upper volar arm. Denies hitting her head, neck pain, or any loss of consciousness. Is able to ambulate with her wheeled walker. History left knee arthroplasty. Tetanus is unknown. Related Data Home Medications ?Medication ?Instructions ?Recorded ?Confirmed ?Last Taken ?Type ICaps AREDS .Route 09/14/24 Unknown History atorvastatin 40 mg tablet 40 mg PO QPM 09/14/24 01/25/25 01/25/25 History dorzolamide-timolol (PF) 2 %-0.5 % 1 drp EACH EYE Q12H 09/14/24 01/25/25 01/25/25 History eye drops in a dropperette hydralazine 25 mg tablet 25 mg PO Q12H 09/14/24 01/25/25 01/25/25 History losartan 100 1 tablet PO 09/14/24 Unknown History mg-hydrochlorothiazide 25 mg tablet metoprolol succinate 25 mg 25 mg PO Q12H 09/14/24 01/25/25 Unknown History tablet,extended release 24 hr clopidogrel 75 mg tablet mg 02/28/25 Unknown History linaclotide 290 mcg capsule mcg 02/28/25 Unknown History (Linzess) pantoprazole 20 mg tablet,delayed mg PO 02/28/25 Unknown History release Allergies Allergy/AdvReac Type Severity Reaction Status Date / Time Penicillins Allergy Unknown Unknown Verified 01/25/25 09:35 clindamycin AdvReac Mild Diarrhea Verified 01/25/25 09:35 erythromycin base AdvReac Mild Diarrhea Verified 01/25/25 09:35 Review of Systems Review of Systems: Pertinent positives per HPI. Patient denies any fever, chills, rash, headache, visual changes, dizziness, cough, runny nose, sore throat, shortness of breath, chest pain, palpitations, nausea, vomiting, diarrhea, constipation, abdominal pain, or any urinary issues. [facility] Past Medical History Medical History Hyperlipidemia Hypertension Social History Social History Smoking status: Never smoker Comments At the time of my signature, I reviewed and agree with the nursing past medical, surgical, social, and family history. There is no relevant family history pertinent to the patient complaint. Exam Narrative: General: Well-developed, well nourished, in no apparent distress Head: Normocephalic, atraumatic. Cardio: Regular rate and rhythm, s1 and s2 normal, no murmur appreciated. Resp: Clear to auscultation bilaterally, no rhonchi, rales, wheezing or rubs. Musculoskeletal: No deformity, bruising and swelling noted over the left anterior knee with tenderness to palpation, grossly normal range of motion, muscle strength strong and equal, peripheral pulse strong, no edema, no cyanosis, normal gait and station, walking with a wheeled walker Integumentary: Arp, warm, and dry, 1.5 cm skin tear to the right volar aspect of the upper arm, bleeding currently. Tenderness to palpation, no redness or swelling. Course Course Emergency Course: Portions of this record may have been created with voice recognition software. Level of Care: Express Care Visit Vital Signs Vital signs: Vital Signs Temperature 36.5 C 02/28/25 11:12 Pulse Rate 70 02/28/25 11:12 Respiratory Rate 16 02/28/25 11:12 Blood Pressure 151/62 H 02/28/25 11:12 Pulse Oximetry 97 02/28/25 11:12 Temperature 36.5 C 02/28/25 11:12 Pulse Rate 70 02/28/25 11:12 Respiratory Rate 16 02/28/25 11:12 Blood Pressure 151/62 H 02/28/25 11:12 Pulse Oximetry 97 02/28/25 11:12 Vital signs reviewed Procedures Laceration Laceration 1: Date: 02/28/25 Site: upper extremity Side (If applicable): right Size (cm): 1.5 Description: flap and other (Skin tear) Depth: simple, single layer Pre-repair: wound explored and irrigated ====== Skin Level ====== Skin layer closed with: steri strips ====== Subcutaneous Layer ====== ====== Muscle Layer ====== ====== Tendon Layer ====== Dressing: Verbal consent obtained for laceration repair. Risk and benefits explained and patient voiced understanding. Area was cleansed with antiseptic wound wash and Steri-Strips and benzoin was used bringing the wound edges together- well approximated. Patient tolerated procedure well. Sterile dressing applied. MDM - Fall MDM Narrative Medical decision making narrative: At the time of visit patient is resting comfortably on the exam table. Patient appears to be nontoxic. C/o right arm skin tear and left knee pain after a fall last night. She reports she tripped over her walker and her arm got caught on the walker and she landed on the left knee. Has bruising and swelling to the left anterior knee and a skin tear that continues to bleed to the right upper volar arm. Denies hitting her head, neck pain, or any loss of consciousness. Is able to ambulate with her wheeled walker. History left knee arthroplasty. Tetanus is unknown. On exam patient has a 1.5 cm skin tear to the right upper volar arm-currently bleeding and she has bruising and swelling to the anterior knee with tenderness to palpation. She is able to flex and extend the knee with minimal pain. X-ray of the left knee was ordered. Tdap 0.5 mL IM ordered. Steri-Strips ordered Medications: Tdap 0.5 mL IM given in the clinic today. Procedures: Skin tear repair was performed on the right upper volar arm. Area was cleansed with antiseptic wound wash and patted dry with sterile 4x4s. Q-tips were used to flatten out the skin tear and apply back to the wound bed bringing wound edges well approximate. Benzoin and Steri-Strips were applied. Telfa dressing applied and secured with Kerlix roll. Patient tolerated well Diagnostics: X-ray of the left knee was negative for any acute fracture or malalignment. Plan: I suspect patient has a left knee contusion and a skin tear to the right volar upper arm. Tdap was updated. CD disc and x-ray report was given to the patient to follow-up with her orthopedic provider. Supportive measures were discussed with the patient and they voiced understanding discharge instructions and agrees to treatment plan. Return precautions reviewed Differential Diagnosis Differential diagnosis: Likely other (Skin tear, knee fracture, knee contusion, knee sprain,) Discharge Plan Discharge Clinical Impression: Skin tear of right upper extremity, Contusion of left knee, initial encounter Fall Qualifiers: Encounter type: initial encounter Qualified Code(s): W19.XXXA - Unspecified fall, initial encounter Patient Disposition: Home Condition: Stable Instructions: Antibiotic Form, Fall Prevention for Older Adults (ED), Knee Pain (ED), Skin Tear (ED) Additional Instructions: X-ray of the left knee shows no sign of acute fracture or malalignment-hardware is in place. X-ray disc and copy of the report was given to you. Skin tear was repaired in the clinic [id number] were placed. Tdap 0.5ml IM given in the clinic today. Knee contusion discharge instructions: Rest, ice, and elevate May take Tylenol for pain as discussed. Gradually bear weight Follow up with your PCP/orthopaedic provider if symptoms persist more than 1 week. Skin tear discharge instructions: Leave bandage on for 24 hours then may remove and non stick Telfa covering as needed. Keep wound clean and dry Do not remove the steri strips- they will fall off on their own. May trim them when they start to peel up. Watch for signs and symptoms of infection- redness, streaking, swelling, purulent discharge, or increase in pain. Follow up with your PCP in 3 days for a wound check. Patient Language: Turkmen Prescriptions: No Action clopidogrel 75 mg tablet pantoprazole 20 mg tablet,delayed release (DR/EC) PO Linzess 290 mcg capsule atorvastatin 40 mg tablet 40 mg PO QPM hydralazine 25 mg tablet 25 mg PO Q12H losartan-hydrochlorothiazide 100-25 mg tablet 1 tablet PO metoprolol succinate 25 mg tablet extended release 24 hr 25 mg PO Q12H dorzolamide-timolol (PF) 2-0.5 % dropperette 1 drp EACH EYE Q12H ICaps AREDS .Route Saline Mist 0.65 % aerosol,spray 2 spray intranasal QID PRN (Reason: dry nasal passages) Qty: 44 0RF Follow-up/Referrals: BaMonika [Other] Time of Disposition: 11:54 Quality NIHSS Nursing Documentation ED NIHSS nursing documentation: reviewed/agree
[2025-02-28 11:12] VITALS: BP 151/62; PULSE 70; RESP 16; TEMP 36.5; O2SAT 97
[2025-02-28] MEDS: TETANUS,DIPHTHERIA,AC PERTUSSIS ADULT (0.5 ML) BOOSTRIX IM (11:42)
== END 2025-02-28 12:10 | disposition home or self-care (01) ==
PROVIDERS: Emergency Provider Nurse Practitioner Family
DX: S41.111A Laceration without foreign body of right upper arm, initial encounter (principal); S80.02XA Contusion of left knee, initial encounter; W18.09XA Striking against other object with subsequent fall, initial encounter; Z23 Encounter for immunization; I10 Essential (primary) hypertension; E78.5 Hyperlipidemia, unspecified
CPT/HCPCS: 73564; 90471; 90715; 99213; G0463